=== PATIENT | female | born 1945 | race Caucasian/White ===

== ENCOUNTER 2020-10-15 14:47 | Inpatient (IN) ==
--- NOTE | 2020-10-15 15:45 | DR.GENAD ---
HPI Time Seen Time Seen by Provider: 10/15/20 15:03 PCP Primary Care Physician: HUMBLE HPI Comment HPI Comment: A 74 y/o female presenting with drainage from a surgical incision site. She has bladder cancer and had a cystectomy back in July 2020. The daughter in-law who cares for her at home noted this this morning and it was draining some yellowish discharge. The wound was not present yesterday. The pt. is taking oral chemotherapy at home. She has no fever, nausea or vomiting. Complaint/Symptoms Chief Complaint:: "THIS PLACE WHERE I HAD SURGERY AND HAD MY BLADDER TAKEN OUT HAS BECOME INFECTED AND I HAVE GREEN STUFF COMING OUT OF THIS BAG." Self Treatment fo Chief Complaint: NONE COVID-19 Coronavirus risk:travel/contact w/high risk person: No Has patient experienced Coronavirus symptoms: No Nurses notes reviewed Nurses Notes Review: Yes Source History Provided: Patient and Family Member Mode of Arrival Mode of Arrival: EMS Timing Onset of Chief Complaint: 10/15/20 Came on: Suddenly PMH PMH Past Medical History: Yes Past Medical History: Arthritis and Hypertension Past Medical History Comment: BLADDER CANCER, KIDNEY CANCER Past Surgical History: Yes Surgical History: Cholecystectomy Past Surgical History Comment: BLADDER, AND KIDNEY REMOVED, HERNIA REPAIR X 3 WI TH MESH Family History History of Family Medical Conditions: Yes Family Medical History: Cancer, Heart Failure and Hypertension Social History Does patient currently use any type of tobacco product: No Have you used tobacco products in the last 12 months: No Type of Tobacco Use: None Does any household member use tobacco: No Alcohol Use: None Do you use any recreational Drugs:: No Lives With: Family Lives Where: Home Travel Risk Coronavirus risk:travel/contact w/high risk person: No Has patient experienced Coronavirus symptoms: No Infectious screening In the last 2 months have you had wt loss of >10#?: NO Have you had fever, night sweats or hemotysis?: No Have you traveled outside the country in the last 6 months?: No Isolation: Standard ROS Review of Systems Constitutional: No Symptoms Reported ENTM: No Symptoms Reported Respiratoy: No Symptoms Reported Cardiovascular: No Symptoms Reported Gastrointestinal/Abdominal: No Symptoms Reported Genitourinary: No Symptoms Reported Neurological: No Symptoms Reported Musculoskeletal: No Symptoms Reported Integumentary: Wound (incision dehiscence ) Hematologic/Lymphatic: No Symptoms Reported Endocrine: No Symptoms Reported Psychiatric: No Symptoms Reported PE Vital Signs Vitals: Temperature 97.7 F Pulse Rate [Apical] 104 Pulse Rate 97 Respiratory Rate 30 Blood Pressure [Left Arm] 140/60 Blood Pressure 91/52 O2 Sat by Pulse Oximetry 100 General Limitations: No Limitations General Appearance: Alert and In No Apparent Distress Head Head Exam: Normal Inspection, Atraumatic and Normocephalic Eyes Eye exam: Normal Appearance and EOMI ENT ENT Exam: Normal Exam, Normal Oropharynx, Normal External Ear Exam and Mucous Membranes Moist Neck Neck Exam: Normal Inspection, Full ROM and Trachea Midline Chest Chest Inspection: Normal Inspection and Symmetric Chest Wall Rise Respiratory Respiratory Exam: Normal Lung Sounds Bilat Cardiovascular Cardiovascular Exam: Regular Rate, Normal Rhythm, Normal Heart Sounds, +S1 and +S2 Abdominal Exam Abdominal Exam: Normal Bowel Sounds, Soft and Other (incisional dehiscence at about disal 1/3, with wound drainage.); negative Normal Inspection, Distention, Tenderness, Guarding, Rebound, Rigidity, Dimnished Bowel Sounds, Hyperactive Sonido wel Sounds, Hypoactive Bowel Sounds, Organomegaly, Trauma, Incision, Ascites, Mass, Bruit, Pulsatile Mass and Hernia Extremities Extremities Exam: Normal Inspection and Full ROM Back Back Exam: Normal Inspection and Full ROM Neurologic Neurological Exam: Alert and Oriented X3 Psychiatric Psychiatric Exam: Normal Affect and Normal Mood Skin Skin Exam: Dry and Normal Color COURSE Reevaluation 1st: Unchanged Education/Counseling Education/Counseling: Patient, Family, Education and Counseling Educated On: Treatment, Diagnosis, Prognosis and Needs for Follow Up ROR Labs Reviewed Laboratory Results Reviewed?: Yes Result Diagrams: 10/15/20 15:46 10/15/20 15:46 Laboratory: 10/15/20 15:30 Abdomen Wound Gram Stain - Final WBC 26.6 X10^3/uL (3.6-10.0) H 10/15/20 15:46 RBC 3.15 X10^6/uL (3.5-5.4) L 10/15/20 15:46 Hgb 7.3 g/dL (12.0-16.0) L 10/15/20 15:46 Hct 23.6 % (36.0-47.0) L 10/15/20 15:46 MCV 75.0 fL (80.0-100.0) L 10/15/20 15:46 MCH 23.1 pg (27.0-34.0) L 10/15/20 15:46 MCHC 30.9 g/dL (33.0-35.0) L 10/15/20 15:46 RDW 18.2 % (11.6-16.5) H 10/15/20 15:46 Plt Count 269 X10^3/uL (150.0-450.0) 10/15/20 15:46 Plt Count Comment Adequate (ADEQUATE) 10/15/20 15:46 MPV 7.2 fL (7.4-11.0) L 10/15/20 15:46 Neut % (Auto) 89.2 % (42.0-75.0) H 10/15/20 15:46 Lymph % (Auto) 3.8 % (21.0-51.0) L 10/15/20 15:46 [place] % (Auto) 6.2 % (0.0-13.0) 10/15/20 15:46 Eos % (Auto) 0.5 % (0.9-2.9) L 10/15/20 15:46 Baso % (Auto) 0.3 % (0.2-1.0) 10/15/20 15:46 Neut # (Auto) 23.7 x10^3/uL (2.2-4.8) H 10/15/20 15:46 Lymph # (Auto) 1.0 X10^3/uL (1.3-2.9) L 10/15/20 15:46 [place]ough # (Auto) 1.7 x10^3/uL (0.3-0.8) H 10/15/20 15:46 Eos # (Auto) 0.1 x10^3/uL (0.0-0.2) 10/15/20 15:46 Baso # (Auto) 0.1 X10^3/uL (0.0-0.1) 10/15/20 15:46 Absolute Nucleated RBC 0.0 /100WBC 10/15/20 15:46 Total Counted 100 10/15/20 15:46 Neutrophils % (Manual) 92 % (39-76) H 10/15/20 15:46 Lymphocytes % (Manual) 6 % (13-43) L 10/15/20 15:46 Monocytes % (Manual) 1 % (4-9) L 10/15/20 15:46 Eosinophils % (Manual) 1 % (0-6) 10/15/20 15:46 Plt Morphology Comment Normal (NORMAL) 10/15/20 15:46 RBC Morphology Normal (NORMAL) 10/15/20 15:46 Sodium 139 mmol/L (136-145) 10/15/20 15:46 Corrected Sodium 140 mmol/L (136-145) 10/15/20 15:46 Potassium 3.3 mmol/L (3.5-5.1) L 10/15/20 15:46 Chloride 104 mmol/L (98-107) 10/15/20 15:46 Carbon Dioxide 21.5 mmol/L (21-32) 10/15/20 15:46 BUN 32 mg/dL (7-18) H 10/15/20 15:46 Creatinine 2.02 mg/dL (0.55-1.02) H 10/15/20 15:46 Est GFR (MDRD) Af Amer 31 (>60) L 10/15/20 15:46 Est GFR (MDRD) Non-Af 25 (>60) L 10/15/20 15:46 Glucose 147 mg/dL (65-99) H 10/15/20 15:46 Lactic Acid 5.1 mmol/L (0.4-2.0) H 10/15/20 16:50 Calcium 9.4 mg/dL (8.5-10.1) 10/15/20 15:46 Corrected Calcium 11.7 mg/dL (8.5-10.1) H 10/15/20 15:46 Total Bilirubin 0.20 mg/dL (0.2-1.0) 10/15/20 15:46 AST 28 Units/L (15-37) 10/15/20 15:46 ALT 13 Units/L (12-78) 10/15/20 15:46 Alkaline Phosphatase 72 Units/L (46-116) 10/15/20 15:46 Total Protein 5.6 g/dL (6.4-8.2) L 10/15/20 15:46 Albumin 1.1 g/dL (3.4-5.0) L 10/15/20 15:46 Globulin 4.5 g/dL (2.5-4.5) 10/15/20 15:46 Albumin/Globulin Ratio 0.2 Ratio (1.1-2.1) L 10/15/20 15:46 SARS CoV-2 RNA Rapid ROSE Negative (NEGATIVE) 10/15/20 16:20 Opioid Opioid Risk Tool Age (Zeeshan box if 16-45): No History of Preadolescent Sexual Abuse: No Total: 0 Total Score Risk Category: Low Risk Copyright: [facility] predicting aberrant behaviors Diagnosis Discharge Problem: Abdominal wall fistula, Neutrophilic leukocytosis, CKD (chronic kidney disease) stage 4, GFR 15-29 ml/min, Hypochromic microcytic anemia, Acute hypokalemia Abdominal wound dehiscence Qualifiers: Encounter type: initial encounter Qualified Code(s): T81.30XA - Disruption of wound, unspecified, initial encounter Bladder cancer Qualifiers: Bladder location: unspecified site Qualified Code(s): C67.9 - Malignant neoplasm of bladder, unspecified Instructions Forms: Precautions for COVID19 Patient Portal Social Distancing
[2020-10-15 15:58] LABS: BASOPHILS # (AUTO) 0.1 X10^3/uL (0.0-0.1); BASOPHILS % (AUTO) 0.3 % (0.2-1.0); EOSINOPHILS # (AUTO) 0.1 x10^3/uL (0.0-0.2); EOSINOPHILS % (AUTO) 0.5 % (0.9-2.9); HEMATOCRIT 23.6 % (36.0-47.0); HEMOGLOBIN 7.3 g/dL (12.0-16.0); LYMPHOCYTES % (AUTO) 3.8 % (21.0-51.0); MEAN CORPUSCULAR HEMOGLOBIN 23.1 pg (27.0-34.0); MEAN CORPUSCULAR HGB CONC 30.9 g/dL (33.0-35.0); MEAN PLATELET VOLUME 7.2 fL (7.4-11.0); MONOCYTES # (AUTO) 1.7 x10^3/uL (0.3-0.8); MONOCYTES % (AUTO) 6.2 % (0.0-13.0); NEUTROPHILS # (AUTO) 23.7 x10^3/uL (2.2-4.8); NEUTROPHILS % (AUTO) 89.2 % (42.0-75.0); PLATELET COUNT 269 X10^3/uL (150.0-450.0); RED BLOOD COUNT 3.15 X10^6/uL (3.5-5.4); RED CELL DISTRIBUTION WIDTH 18.2 % (11.6-16.5); WHITE BLOOD COUNT 26.6 X10^3/uL (3.6-10.0)
[2020-10-15 16:10] LABS: ALBUMIN 1.1 g/dL (3.4-5.0); CALCIUM 9.4 mg/dL (8.5-10.1); CARBON DIOXIDE 21.5 mmol/L (21-32); COR CA(FOR HYPOALB) 11.7 mg/dL (8.5-10.1); CREATININE 2.02 mg/dL (0.55-1.02); TOTAL PROTEIN 5.6 g/dL (6.4-8.2)
[2020-10-15 16:11] LABS: PLATELET MORPHOLOGY COMMENT NORMAL (NORMAL)
[2020-10-15] MEDS ORDERED: LEVAQUIN PREMIX IV 500 MG 500 MG/100 ML BAG IV ONE ×2 (16:31→16:58)
[2020-10-15] MEDS ORDERED: K-DUR TAB 20 MEQ PO ONE ×2 (16:39→16:57)
[2020-10-15] MEDS ORDERED: NS 1000 ML 1,000 ML ONE (16:58)
[2020-10-15] MEDS ORDERED: NS 1000 ML 1,000 ML IV SCH (17:00)
[2020-10-15] MEDS ORDERED: NS 1000 ML 1,000 ML IV ONE (18:24)
[2020-10-15] MEDS: NS 1000 ML 1,000 ML IV SCH (19:36)
[2020-10-15] MEDS ORDERED: NS 500 ML IV 500 ML IV ONE (21:22)
[2020-10-15 22:15] VITALS: BMI 26.4
[2020-10-16 05:17] LABS: BASOPHILS # (AUTO) 0.1 X10^3/uL (0.0-0.1); BASOPHILS % (AUTO) 0.4 % (0.2-1.0); EOSINOPHILS # (AUTO) 0.3 x10^3/uL (0.0-0.2); EOSINOPHILS % (AUTO) 1.1 % (0.9-2.9); HEMATOCRIT 28.5 % (36.0-47.0); HEMOGLOBIN 9.4 g/dL (12.0-16.0); LYMPHOCYTES # (AUTO) 1.3 X10^3/uL (1.3-2.9); LYMPHOCYTES % (AUTO) 5.4 % (21.0-51.0); MEAN CORPUSCULAR HEMOGLOBIN 25.9 pg (27.0-34.0); MEAN CORPUSCULAR HGB CONC 33.1 g/dL (33.0-35.0); MEAN CORPUSCULAR VOLUME 78.3 fL (80.0-100.0); MEAN PLATELET VOLUME 7.4 fL (7.4-11.0); MONOCYTES # (AUTO) 1.2 x10^3/uL (0.3-0.8); MONOCYTES % (AUTO) 5.2 % (0.0-13.0); NEUTROPHILS # (AUTO) 20.8 x10^3/uL (2.2-4.8); NEUTROPHILS % (AUTO) 87.9 % (42.0-75.0); PLATELET COUNT 229 X10^3/uL (150.0-450.0); RED BLOOD COUNT 3.63 X10^6/uL (3.5-5.4); RED CELL DISTRIBUTION WIDTH 18.3 % (11.6-16.5)
[2020-10-16 05:22] LABS: ALBUMIN 1.1 g/dL (3.4-5.0); CARBON DIOXIDE 21.7 mmol/L (21-32); COR CA(FOR HYPOALB) 11.3 mg/dL (8.5-10.1); CREATININE 1.87 mg/dL (0.55-1.02); TOTAL PROTEIN 5.3 g/dL (6.4-8.2)
[2020-10-16 06:01] LABS: WHITE BLOOD COUNT 23.7 X10^3/uL (3.6-10.0)
[2020-10-16 06:02] LABS: HYPOCHROMASIA SLIGHT; MICROCYTOSIS SLIGHT; PLATELET MORPHOLOGY COMMENT NORMAL (NORMAL)
[2020-10-16] MEDS ORDERED: LEVAQUIN PREMIX IV 750 MG 750 MG/150 ML BAG IV SCH (08:00)
--- NOTE | 2020-10-16 08:31 | DR.PROGNOT ---
Hospital Progress Notes - Progress Note for Day of: Progress Note Date: 10/16/20 - Chief Complaint Chief Complaint: was seen in the ER with open wound lower midline incision with active drainage . no significant cellulitis . S/P resection of bladder ca ( to obtain old records ) - Past Medical Family Social History Past Med/Fam/Surg Hx: No changes since H&P Allergies: Allergies cephalexin [From Keflex] Allergy (Verified 09/19/18 14:30) Penicillins Allergy (Verified 09/19/18 14:30) - Review Of Systems ROS: No change since H&P - Vital Signs Vital Signs: Temperature 97.9 F Pulse Rate [Apical] 98 Pulse Rate 101 Respiratory Rate 20 Blood Pressure [Right Arm] 98/55 Blood Pressure [Left Arm] 80/40 Blood Pressure 87/50 O2 Sat by Pulse Oximetry 100 - Physical Exam Oriented: Normal Eyes: Normal Ear: Normal Nose: Normal Throat: Normal Cardiovascular: Normal : Normal GI:Auscultation: Normal GI:Palpation: Other (large indurated area mid lower abdomen with fistula tract on the midline draining greenish fluid .) Speech Pattern: Clear, Appropriate - Laboratory and Diagnostics Result Diagrams: 10/16/20 04:17 10/16/20 04:17 Labs: 10/15/20 15:30 Abdomen Wound Gram Stain - Final Laboratory WBC 23.7 X10^3/uL (3.6-10.0) H 10/16/20 04:17 RBC 3.63 X10^6/uL (3.5-5.4) 10/16/20 04:17 Hgb 9.4 g/dL (12.0-16.0) L D 10/16/20 04:17 Hct 28.5 % (36.0-47.0) L 10/16/20 04:17 MCV 78.3 fL (80.0-100.0) L 10/16/20 04:17 MCH 25.9 pg (27.0-34.0) L 10/16/20 04:17 MCHC 33.1 g/dL (33.0-35.0) 10/16/20 04:17 RDW 18.3 % (11.6-16.5) H 10/16/20 04:17 Plt Count 229 X10^3/uL (150.0-450.0) 10/16/20 04:17 Plt Count Comment Adequate (ADEQUATE) 10/16/20 04:17 MPV 7.4 fL (7.4-11.0) 10/16/20 04:17 Neut % (Auto) 87.9 % (42.0-75.0) H 10/16/20 04:17 Lymph % (Auto) 5.4 % (21.0-51.0) L 10/16/20 04:17 [place] % (Auto) 5.2 % (0.0-13.0) 10/16/20 04:17 Eos % (Auto) 1.1 % (0.9-2.9) 10/16/20 04:17 Baso % (Auto) 0.4 % (0.2-1.0) 10/16/20 04:17 Neut # (Auto) 20.8 x10^3/uL (2.2-4.8) H 10/16/20 04:17 Lymph # (Auto) 1.3 X10^3/uL (1.3-2.9) 10/16/20 04:17 [place] # (Auto) 1.2 x10^3/uL (0.3-0.8) H 10/16/20 04:17 Eos # (Auto) 0.3 x10^3/uL (0.0-0.2) H 10/16/20 04:17 Baso # (Auto) 0.1 X10^3/uL (0.0-0.1) 10/16/20 04:17 Absolute Nucleated RBC 0.1 /100WBC 10/16/20 04:17 Total Counted 100 10/16/20 04:17 Neutrophils % (Manual) 90 % (39-76) H 10/16/20 04:17 Lymphocytes % (Manual) 5 % (13-43) L 10/16/20 04:17 Monocytes % (Manual) 5 % (4-9) 10/16/20 04:17 Eosinophils % (Manual) 1 % (0-6) 10/15/20 15:46 Plt Morphology Comment Normal (NORMAL) 10/16/20 04:17 RBC Morphology Abnormal (NORMAL) A 10/16/20 04:17 Hypochromasia Slight A 10/16/20 04:17 Microcytosis Slight A 10/16/20 04:17 Sodium 140 mmol/L (136-145) 10/16/20 04:17 Corrected Sodium 141 mmol/L (136-145) 10/16/20 04:17 Potassium 2.9 mmol/L (3.5-5.1) L* 10/16/20 04:17 Chloride 107 mmol/L (98-107) 10/16/20 04:17 Carbon Dioxide 21.7 mmol/L (21-32) 10/16/20 04:17 BUN 29 mg/dL (7-18) H 10/16/20 04:17 Creatinine 1.87 mg/dL (0.55-1.02) H 10/16/20 04:17 Est GFR (MDRD) Af Amer 34 (>60) L 10/16/20 04:17 Est GFR (MDRD) Non-Af 28 (>60) L 10/16/20 04:17 Glucose 122 mg/dL (65-99) H 10/16/20 04:17 Lactic Acid 5.1 mmol/L (0.4-2.0) H 10/15/20 16:50 Calcium 9.0 mg/dL (8.5-10.1) 10/16/20 04:17 Corrected Calcium 11.3 mg/dL (8.5-10.1) H 10/16/20 04:17 Total Bilirubin 0.90 mg/dL (0.2-1.0) 10/16/20 04:17 AST 24 Units/L (15-37) 10/16/20 04:17 ALT 11 Units/L (12-78) L 10/16/20 04:17 Alkaline Phosphatase 73 Units/L (46-116) 10/16/20 04:17 Total Protein 5.3 g/dL (6.4-8.2) L 10/16/20 04:17 Albumin 1.1 g/dL (3.4-5.0) L 10/16/20 04:17 Globulin 4.2 g/dL (2.5-4.5) 10/16/20 04:17 Albumin/Globulin Ratio 0.3 Ratio (1.1-2.1) L 10/16/20 04:17 SARS CoV-2 RNA Rapid ROSE Negative (NEGATIVE) 10/15/20 16:20 Blood Type B POSITIVE 10/15/20 16:50 Antibody Screen Negative 10/15/20 16:50 Crossmatch See Detail 10/15/20 16:50 - Assessment and Plan 1: open wound abdominal wall R/O bowel fistula . recent surgery for bladder cancer ( to obtain old records ). hypokalemia and hypo albuminemia . to obtain ABD/PELVIC CT with contrast in the fistula tract .. on IV ATB . - Problem Patient Problems: Patient Problems Abdominal wound dehiscence (Acute) T81.30XA Abdominal wall fistula (Acute) K63.2 Neutrophilic leukocytosis (Acute) D72.9 CKD (chronic kidney disease) stage 4, GFR 15-29 ml/min (Acute) N18.4 Bladder cancer (Acute) C67.9 Hypochromic microcytic anemia (Acute) D50.9 Acute hypokalemia (Acute) E87.6
[2020-10-16] MEDS: NS 1000 ML 1,000 ML IV SCH ×2 (08:34→21:06)
[2020-10-16] MEDS ORDERED: NS 1000 ML 1,000 ML IV ONE (09:38)
[2020-10-16] MEDS ORDERED: PROCALAMINE 3 % 1,000 ML IV SCH (10:00)
--- NOTE | 2020-10-16 10:55 | DR.H&P ---
H&P - History & Physical for Day of: H&P Date: 10/15/20 - Chief Complaint Chief Complaint: DRAINAGE FROM ABDOMINAL WOUND, WEAKNESS, HYPOTENSION - History of Present Illness History of Present Illness: IS A 74 YEAR OLD PATIENT OF OURS. SHE PRESENTED TO THE ER WITH COMPLAINTS OF PURULENT, FOUL SMELLING DRAINAGE FROM AN OPEN WOUND TO THE LEFT SIDE OF ABDOMEN. PATIENT WAS DIAGNOSED WITH BLADDER CANCER EARLIER THIS YEAR. SHE HAD A CYSTECTOMY IN JULY 2020 IN [place]. NEOBLADDER RECONSTRUCTION WAS ALSO DONE AT THAT TIME. AFTER SURGERY, PATIENT REPORTS THAT A FISTULA FORMED. SHE HAS HAD DRAINAGE FROM THE SITE FOR SEVERAL WEEKS. PATIENT AND FAMILY MEMBER REPORT THAT THERE WAS ONLY A SMALL OPENED AREA A FEW DAYS AGO, BUT WOUND BUSTED OPEN YESTERDAY MORNING AND HAS HAD MODERATE DRAINAGE SINCE. PATIENT REPORTS THAT SINCE RECONSTRUCTION, SHE HAS NOT BEEN ABLE TO URINATE ON HER OWN YET. SHE REPORTS THAT A LOCKE CATHETER WAS INSERTED ABOUT A MONTH AGO AND HOME HEALTH HAS BEEN CHANGING IT OUT FOR HER. PATIENT WAS SCHEDULED TO START RADIATION LAST TUESDAY, HOWEVER, PATIENT WAS TOO WEAK AND SICK. FAMILY MEMBERS TOOK HER TO THE HOSPITAL IN [place], [place] AT THAT TIME. SHE WAS THEN TRANSFERRED TO [facility] IN [place], [place]. THERE, SHE HAD STENT PLACEMENT IN LEFT KIDNEY. A NEPHROSTOMY TUBE WAS ALSO INSERTED. WHILE HOSPITALIZED THERE, AN ABDOMEN/PELVIS CT WAS DONE AND REVEALED A MASS IN BETWEEN THE KIDNEY AND AREA OF BLADDER RECONSTRUCTION. PATIENT DENIES FEVER, NAUSEA, OR VOMITING. SHE DOES ADMIT TO WEAKNESS AND LOW BLOOD PRESSURE. OTHER PAST MEDICAL HISTORY INCLUDES HTN, RENAL DISEASE, DEPRESSION, ILEAL CONDUIT, UROSTOMY, RIGHT NEPHRECTOMY, AND HERNIA REPAIR X 3 WITH MESH. HER ONCOLOGIST IS IN [place]. ON ARRIVAL TO THE ER, VITALS WERE 97.9-104-20-95%-140/60. LABS WERE OBTAINED. ABNORMAL LAB VALUES INCLUDE THE FOLLOWING: WBC 26.6, RBC 3.15, HGB 7.3, HCT 23.6, POTASSIUM 3.3, BUN 32, CREATININE 2.02, GLUCOSE 147, TOTAL PROTEIN 5.6, ALBUMIN 1.1, LACTIC ACID 5.1. COVID-19 NEGATIVE. BLOOD CULTURES AND WOUND CULTURES WERE SET UP. IN THE ER, AN OSTOMY BAG WAS PLACED OVER WOUND TO COLLECT THE PURULENT DRAINAGE. WAS CONSULTED. HE WISHES TO OBTAIN AN ABD/PELVIS CT WITH CONTRAST IN THE FISTULA TRACT. WHILE IN THE ER, PATIENT RECEIVED A NORMAL SALINE BOLUS, LEVAQUIN 500MG IV X 1 DOSE, K-DUR 20MEQ PO X 1. SHE WAS ADMITTED TO THE HOSPITAL FOR FURTHER EVALUATION AND TREATMENT OF SEPSIS, ABDOMINAL WOUND DEHISCENCE, ABDOMINAL WALL FISTULA, LEUKOCYTOSIS, HYPOKALEMIA, AND ANEMIA. WE ORDERED AND TRANSFUSED TWO UNITS OF PRBC. SHE WAS STARTED ON NORMAL SALINE AT 110 ML/HR, PROCALAMINE AT 40 ML/HR, ALBUMIN 25% IV BID, CIPRO 200MG IV Q12H, FORTAZ 1G IV Q12H, KLONOPIN 1MG PO HS, NORCO 5/325MG PO Q6H PRN. WE WILL BOLUS AN ADDITION LITER OF NORMAL SALINE. OTHERWISE, WE PLAN TO FOLLOW UP WITH AM LABS AND CONTINUE TO MONITOR. TIME SPENT ON CLINICAL ASSESSMENT, REVIEWING LABS AND IMAGING, DECISION MAKING, AND DOCUMENTATION GREATER THAN 75 MINUTES. - Past Medical History Past Medical History: Arthritis, Depression, Hypertension, Renal Disease - Past Surgical History Surgical History: Cholecystectomy Additional Surgical History: ILEAL CONDUIT, UROSTOMY, RIGHT NEPHRECTOMY, HERNIA REPAIR X 3 WITH MESH, CYSTECTOMY - Family History Family Medical History: Cancer, Heart Failure, Hypertension - Social History Does patient currently use any type of tobacco product: No Have you used tobacco products in the last 12 months: No Type of Tobacco Use: None Does any household member use tobacco: No Alcohol Use: None Drug Use: None - Medications Home Medications: cephalexin [From Keflex] Allergy (Verified 09/19/18 14:30) Penicillins Allergy (Verified 09/19/18 14:30) - Review of Systems Constitutional: Weakness Eyes: No Symptoms Reported ENT: No Symptoms Reported Respiratory: No Symptoms Reported Cardiovascular: No Symptoms Reported Gastrointestinal: See HPI, Abdominal Pain Genitourinary: See HPI, Other (NEOBLADDER RECONSTRUCTION. LOCKE IN PLACE. NEPHROSTOMY TUBE LEFT KIDNEY ) Musculoskeletal: No Symptoms Reported Skin: See HPI, Wound (LEFT ABDOMEN WOUND DRAINAGE ) Neurological: Weakness - Physical Exam Vital Signs: Temperature 97.9 F Pulse Rate [Apical] 98 Pulse Rate 101 Respiratory Rate 20 Blood Pressure [Right Arm] 98/55 Blood Pressure [Left Arm] 80/40 Blood Pressure 87/50 O2 Sat by Pulse Oximetry 100 Oriented: Normal Eyes: Normal Ear: Normal Nose: Normal Throat: Normal Respiratory: Diminished Throughout Cardiovascular: Normal : Other (NEOBLADDER RECONSTRUCTION. LOCKE IN PLACE. NEPHROSTOMY TUBE LEFT KIDNEY ) Auscultation: Bowel Sounds: Normal Palpation: Normal Tenderness: Normal Skin: Wound (LEFT ABDOMEN WOUND DEHISCENCE WITH PURULENT DRAINAGE ) Musculoskeletal: Normal Psychiatric: Normal Mood Description: Calm Affect: Normal Speech Pattern: Clear - Assessment/Plan (1) Sepsis Qualifiers: Sepsis type: sepsis due to unspecified organism Sepsis acute organ dysfunction status: unspecified Qualified Code(s): A41.9 - Sepsis, unspecified organism Status: Acute Plan: ADMIT, NORMAL SALINE AT 110 ML/HR, PROCALAMINE AT 40 ML/HR, ALBUMIN 25% IV BID, CIPRO 200MG IV Q12H, FORTAZ 1G IV Q12H, KLONOPIN 1MG PO HS, NORCO 5/325MG PO Q6H PRN. WOUND AND BLOOD CULTURE SET UP (2) Abdominal wound dehiscence Qualifiers: Encounter type: initial encounter Qualified Code(s): T81.30XA - Disruption of wound, unspecified, initial encounter Status: Acute (3) Abdominal wall fistula Status: Acute (4) Neutrophilic leukocytosis Status: Acute (5) Bladder cancer Qualifiers: Bladder location: unspecified site Qualified Code(s): C67.9 - Malignant neoplasm of bladder, unspecified Status: Acute (6) Hypochromic microcytic anemia Status: Acute (7) Acute hypokalemia Status: Acute (8) CKD (chronic kidney disease) stage 4, GFR 15-29 ml/min Status: Chronic - Allergies Allergies/Adverse Reactions: Allergies Allergy/AdvReac Type Severity Reaction Status Date / Time cephalexin [From Keflex] Allergy Verified 09/19/18 14:30 Penicillins Allergy Verified 09/19/18 14:30
[2020-10-16] MEDS: NORCO 5/325 MG TAB PO PRN (11:30)
[2020-10-16] MEDS: ALBUMIN HUMAN 25%- 100 ML 100 ML IV SCH ×2 (11:54→21:05)
--- NOTE | 2020-10-16 13:23 | CT ---
HISTORYPT C/O OF PURULENT, FOUL SMELLING DRAINAGE FROM AN OPEN WOUND TO THE LEFT SIDE OF ABDOMEN. PATIENT DIAGNOSED WITH BLADDER CANCER. PT HAD A CYSTECTOMY IN JULY 30 W/ NEOBLADDER RECONSTRUCTION. AFTER SURGERY, PATIENT REPORTS a fistulaSTUDYCT ABDOMEN/PELVIS without IV contrastCOMPARISONCT 10/07/2020TECHNIQUEMultiple axial images of the abdomen and pelvis were obtained from the lung bases to the pubic symphysis without the administration of IV contrast. Initial imaging is performed following installation of contrast into the surgical wound by the referring physician. Dose reduction techniques including Automated Exposure Control (AEC) and adjustment of mA and kV were utilized.FINDINGSMinimal bibasilar atelectasis. Calcified granuloma is seen in the dome of the liver. Spleen appears normal. 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 Gallbladder appears to have thickened wall with mild adjacent fluid. Findings suggest acute cholecystitis. No biliary ductal dilation. Pancreas appears atrophic. Adrenal glands and abdominal aorta are normal in size.Absent right kidney. Left-sided percutaneous nephrostomy 2 is new since prior study. Left-sided hydronephrosis is decreased but left-sided hydroureter and mild left-sided hydronephrosis persist. Merritt catheter is seen within neobladder which is not distended.Left paramidline skin wound is seen with confluent area of mildly hyperdense mass extending from the subcutaneous soft tissues in the region of the wound into the mid pelvis. This area measures 17.0 x 7.3 cm versus 13.2 x 6.9 cm previously. This mass likely causes the left ureteral obstruction. Multiple enlarged lymph nodes are suspected in the groin regions and are probably malignant lymphadenopathy. Mass likely extends into the right inguinal region inferiorly near the mons pubis.Postoperative changes are seen in the bowel and no evidence of bowel obstruction is seen. Trace free pelvic fluid is seen. Following installation of contrast into the skin wound, contrast is seen in the subcutaneous soft tissues. This appears to fill a small collection in the subcutaneous soft tissues to the left of midline. This collection measures 5.3 x 1.8 cm and could be an abscess in the subcutaneous soft tissues. No evidence of intraperitoneal extension of contrast is seen. No evidence of fistulous connection with bowel or system is seen.IMPRESSIONWorsening size of mass in the pelvis which extends into the subcutaneous soft tissues. Adjacent lymphadenopathy is seen in the pelvis and groin, similar to prior study.There is a 5.3 x 1.8 cm subcutaneous fluid collection to the left of midline, extending inferior to the skin wound. This could be an abscess. It fills with injected contrast from the skin wound. No intraperitoneal fistula is seen.Improved left-sided hydronephrosis status post percutaneous nephrostomy tube.Possible development of acute cholecystitis.Electronically signed by: Nick Johnson (Oct 16, 2020 13:20:41)
[2020-10-16] MEDS: FORTAZ or TAZICEF VIAL INJ 1 G in NS 100 ML IV + SPIKE MINIBAG* 100 ML IV SCH ×2 (14:01→21:06)
--- NOTE | 2020-10-16 16:40 | DR.PROGNOT ---
Hospital Progress Notes - Progress Note for Day of: Progress Note Date: 10/16/20 - Chief Complaint Chief Complaint: the wound was filled with radioactive material and repeated CT was done .. no communication with the bowel or free spillage into the abdomen .. most likely large abscess in the abdominal wall . - Past Medical Family Social History Past Med/Fam/Surg Hx: No changes since H&P Allergies: Allergies cephalexin [From Keflex] Allergy (Verified 09/19/18 14:30) Penicillins Allergy (Verified 09/19/18 14:30) - Review Of Systems ROS: No change since H&P - Vital Signs Vital Signs: Temperature 97.8 F Pulse Rate [Apical] 94 Pulse Rate 101 Respiratory Rate 18 Blood Pressure [Right Arm] 105/53 Blood Pressure [Left Arm] 80/40 Blood Pressure 87/50 O2 Sat by Pulse Oximetry 97 - Physical Exam Oriented: Normal Eyes: Normal Ear: Normal Nose: Normal Throat: Normal Cardiovascular: Normal : Other (NEOBLADDER RECONSTRUCTION. LOCKE IN PLACE. NEPHROSTOMY TUBE LEFT KIDNEY ) GI:Auscultation: Normal GI:Palpation: Normal GI: Tenderness: Normal Skin: Wound (LEFT ABDOMEN WOUND DEHISCENCE WITH PURULENT DRAINAGE ) Musculoskeletal: Normal Psychiatric: Normal Mood Description: Calm Affect: Normal Speech Pattern: Clear - Laboratory and Diagnostics Result Diagrams: 10/16/20 04:17 10/16/20 04:17 Labs: 10/15/20 15:30 Abdomen Wound Gram Stain - Final 10/15/20 15:30 Abdomen Wound Culture - Preliminary Laboratory WBC 23.7 X10^3/uL (3.6-10.0) H 10/16/20 04:17 RBC 3.63 X10^6/uL (3.5-5.4) 10/16/20 04:17 Hgb 9.4 g/dL (12.0-16.0) L D 10/16/20 04:17 Hct 28.5 % (36.0-47.0) L 10/16/20 04:17 MCV 78.3 fL (80.0-100.0) L 10/16/20 04:17 MCH 25.9 pg (27.0-34.0) L 10/16/20 04:17 MCHC 33.1 g/dL (33.0-35.0) 10/16/20 04:17 RDW 18.3 % (11.6-16.5) H 10/16/20 04:17 Plt Count 229 X10^3/uL (150.0-450.0) 10/16/20 04:17 Plt Count Comment Adequate (ADEQUATE) 10/16/20 04:17 MPV 7.4 fL (7.4-11.0) 10/16/20 04:17 Neut % (Auto) 87.9 % (42.0-75.0) H 10/16/20 04:17 Lymph % (Auto) 5.4 % (21.0-51.0) L 10/16/20 04:17 [place] % (Auto) 5.2 % (0.0-13.0) 10/16/20 04:17 Eos % (Auto) 1.1 % (0.9-2.9) 10/16/20 04:17 Baso % (Auto) 0.4 % (0.2-1.0) 10/16/20 04:17 Neut # (Auto) 20.8 x10^3/uL (2.2-4.8) H 10/16/20 04:17 Lymph # (Auto) 1.3 X10^3/uL (1.3-2.9) 10/16/20 04:17 [place] # (Auto) 1.2 x10^3/uL (0.3-0.8) H 10/16/20 04:17 Eos # (Auto) 0.3 x10^3/uL (0.0-0.2) H 10/16/20 04:17 Baso # (Auto) 0.1 X10^3/uL (0.0-0.1) 10/16/20 04:17 Absolute Nucleated RBC 0.1 /100WBC 10/16/20 04:17 Total Counted 100 10/16/20 04:17 Neutrophils % (Manual) 90 % (39-76) H 10/16/20 04:17 Lymphocytes % (Manual) 5 % (13-43) L 10/16/20 04:17 Monocytes % (Manual) 5 % (4-9) 10/16/20 04:17 Eosinophils % (Manual) 1 % (0-6) 10/15/20 15:46 Plt Morphology Comment Normal (NORMAL) 10/16/20 04:17 RBC Morphology Abnormal (NORMAL) A 10/16/20 04:17 Hypochromasia Slight A 10/16/20 04:17 Microcytosis Slight A 10/16/20 04:17 Sodium 140 mmol/L (136-145) 10/16/20 04:17 Corrected Sodium 141 mmol/L (136-145) 10/16/20 04:17 Potassium 2.9 mmol/L (3.5-5.1) L* 10/16/20 04:17 Chloride 107 mmol/L (98-107) 10/16/20 04:17 Carbon Dioxide 21.7 mmol/L (21-32) 10/16/20 04:17 BUN 29 mg/dL (7-18) H 10/16/20 04:17 Creatinine 1.87 mg/dL (0.55-1.02) H 10/16/20 04:17 Est GFR (MDRD) Af Amer 34 (>60) L 10/16/20 04:17 Est GFR (MDRD) Non-Af 28 (>60) L 10/16/20 04:17 Glucose 122 mg/dL (65-99) H 10/16/20 04:17 Lactic Acid 3.9 mmol/L (0.4-2.0) H 10/16/20 10:00 Calcium 9.0 mg/dL (8.5-10.1) 10/16/20 04:17 Corrected Calcium 11.3 mg/dL (8.5-10.1) H 10/16/20 04:17 Total Bilirubin 0.90 mg/dL (0.2-1.0) 10/16/20 04:17 AST 24 Units/L (15-37) 10/16/20 04:17 ALT 11 Units/L (12-78) L 10/16/20 04:17 Alkaline Phosphatase 73 Units/L (46-116) 10/16/20 04:17 Total Protein 5.3 g/dL (6.4-8.2) L 10/16/20 04:17 Albumin 1.1 g/dL (3.4-5.0) L 10/16/20 04:17 Globulin 4.2 g/dL (2.5-4.5) 10/16/20 04:17 Albumin/Globulin Ratio 0.3 Ratio (1.1-2.1) L 10/16/20 04:17 SARS CoV-2 RNA Rapid ROSE Negative (NEGATIVE) 10/15/20 16:20 Blood Type B POSITIVE 10/15/20 16:50 Antibody Screen Negative 10/15/20 16:50 Crossmatch See Detail 10/15/20 16:50 - Assessment and Plan 1: open wound and abscess of the abdominal wall. recent surgery for bladder cancer ( to obtain old records ). hypokalemia and hypo albuminemia . on IV ATB and local care .. 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
[2020-10-16] MEDS: KLONOPIN TAB 1 MG PO SCH (21:06)
[2020-10-17 06:12] LABS: BASOPHILS # (AUTO) 0.1 X10^3/uL (0.0-0.1); BASOPHILS % (AUTO) 0.3 % (0.2-1.0); EOSINOPHILS # (AUTO) 0.4 x10^3/uL (0.0-0.2); EOSINOPHILS % (AUTO) 1.9 % (0.9-2.9); HEMATOCRIT 24.8 % (36.0-47.0); HEMOGLOBIN 8.2 g/dL (12.0-16.0); LYMPHOCYTES # (AUTO) 1.1 X10^3/uL (1.3-2.9); LYMPHOCYTES % (AUTO) 4.9 % (21.0-51.0); MEAN CORPUSCULAR HEMOGLOBIN 25.5 pg (27.0-34.0); MEAN CORPUSCULAR VOLUME 77.3 fL (80.0-100.0); MEAN PLATELET VOLUME 6.9 fL (7.4-11.0); MONOCYTES # (AUTO) 1.1 x10^3/uL (0.3-0.8); MONOCYTES % (AUTO) 4.9 % (0.0-13.0); PLATELET COUNT 201 X10^3/uL (150.0-450.0); RED BLOOD COUNT 3.21 X10^6/uL (3.5-5.4); RED CELL DISTRIBUTION WIDTH 18.5 % (11.6-16.5); WHITE BLOOD COUNT 21.6 X10^3/uL (3.6-10.0)
[2020-10-17 06:23] LABS: ALANINE AMINOTRANSFERASE 10 Units/L (12-78); ALBUMIN 1.9 g/dL (3.4-5.0); ALKALINE PHOSPHATASE 49 Units/L (46-116); ASPARTATE AMINO TRANSFERASE 18 Units/L (15-37); BLOOD UREA NITROGEN 23 mg/dL (7-18); CALCIUM 8.6 mg/dL (8.5-10.1); CARBON DIOXIDE 18.7 mmol/L (21-32); CHLORIDE 111 mmol/L (98-107); COR CA(FOR HYPOALB) 10.3 mg/dL (8.5-10.1); CREATININE 1.48 mg/dL (0.55-1.02); SODIUM 144 mmol/L (136-145); eGFR NON BLACK RACES 36 (>60)
[2020-10-17 06:28] LABS: LACTIC ACID 2.3 mmol/L (0.4-2.0)
[2020-10-17 07:11] LABS: ANISOCYTOSIS SLIGHT; BAND NEUTROPHILS % 8 % (0-10); PLATELET MORPHOLOGY COMMENT NORMAL (NORMAL)
[2020-10-17] MEDS: ALBUMIN HUMAN 25%- 100 ML 100 ML IV SCH ×2 (08:08→21:55)
[2020-10-17] MEDS: FORTAZ or TAZICEF VIAL INJ 1 G in NS 100 ML IV + SPIKE MINIBAG* 100 ML IV SCH ×2 (09:12→21:55)
[2020-10-17] MEDS: NS 1000 ML 1,000 ML IV SCH (09:12)
[2020-10-17] MEDS: CIPRO IV 200 MG PREMIX* 200 MG/100 ML BAG IV SCH ×2 (09:32→21:55)
[2020-10-17] MEDS: NS + KCL 20 MEQ/L 1,000 ML IV SCH (11:43)
[2020-10-17] MEDS: PROCALAMINE 3 % 1,000 ML IV SCH (11:44)
[2020-10-17] MEDS: MAGNESIUM SULFATE 1 GRAM/100 mL PREMIX 1 GM/100 ML BAG IV PRN ×2 (13:43→14:54)
--- NOTE | 2020-10-17 14:12 | DR.PROGNOT ---
Hospital Progress Notes - Progress Note for Day of: Progress Note Date: 10/17/20 - Chief Complaint Chief Complaint: feeling a little better . tolerating diet . no nausea or vomiting . abdominal wound is still drainig moderate amount . no cellulitis . WBC 21.6... K 2.9..Hgb 8.2. afebrile . - Past Medical Family Social History Past Med/Fam/Surg Hx: No changes since H&P Allergies: Allergies cephalexin [From Keflex] Allergy (Verified 09/19/18 14:30) Penicillins Allergy (Verified 09/19/18 14:30) - Review Of Systems ROS: No change since H&P - Vital Signs Vital Signs: Temperature 98.5 F Pulse Rate [Apical] 54 Pulse Rate 101 Respiratory Rate 20 Blood Pressure [Right Arm] 107/54 Blood Pressure [Left Arm] 80/40 Blood Pressure 87/50 O2 Sat by Pulse Oximetry 93 - Physical Exam Oriented: Normal Eyes: Normal Ear: Normal Nose: Normal Throat: Normal Cardiovascular: Normal : Other (NEOBLADDER RECONSTRUCTION. LOCKE IN PLACE. 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 ) GI: Tenderness: Normal Skin: Wound (LEFT ABDOMEN WOUND DEHISCENCE WITH PURULENT DRAINAGE ) Musculoskeletal: Normal Psychiatric: Normal Mood Description: Calm Affect: Normal Speech Pattern: Clear, Appropriate - Laboratory and Diagnostics Result Diagrams: 10/17/20 05:52 10/17/20 05:52 Labs: 10/15/20 16:50 Blood Blood Culture - Preliminary 10/15/20 16:50 Blood Blood Culture - Preliminary 10/15/20 15:30 Abdomen Wound Gram Stain - Final 10/15/20 15:30 Abdomen Wound Culture - Preliminary Laboratory WBC 21.6 X10^3/uL (3.6-10.0) H 10/17/20 05:52 RBC 3.21 X10^6/uL (3.5-5.4) L 10/17/20 05:52 Hgb 8.2 g/dL (12.0-16.0) L 10/17/20 05:52 Hct 24.8 % (36.0-47.0) L 10/17/20 05:52 MCV 77.3 fL (80.0-100.0) L 10/17/20 05:52 MCH 25.5 pg (27.0-34.0) L 10/17/20 05:52 MCHC 33.0 g/dL (33.0-35.0) 10/17/20 05:52 RDW 18.5 % (11.6-16.5) H 10/17/20 05:52 Plt Count 201 X10^3/uL (150.0-450.0) 10/17/20 05:52 Plt Count Comment Adequate (ADEQUATE) 10/17/20 05:52 MPV 6.9 fL (7.4-11.0) L 10/17/20 05:52 Neut % (Auto) 88.0 % (42.0-75.0) H 10/17/20 05:52 Lymph % (Auto) 4.9 % (21.0-51.0) L 10/17/20 05:52 [place] % (Auto) 4.9 % (0.0-13.0) 10/17/20 05:52 Eos % (Auto) 1.9 % (0.9-2.9) 10/17/20 05:52 Baso % (Auto) 0.3 % (0.2-1.0) 10/17/20 05:52 Neut # (Auto) 19.0 x10^3/uL (2.2-4.8) H 10/17/20 05:52 Lymph # (Auto) 1.1 X10^3/uL (1.3-2.9) L 10/17/20 05:52 [place] # (Auto) 1.1 x10^3/uL (0.3-0.8) H 10/17/20 05:52 Eos # (Auto) 0.4 x10^3/uL (0.0-0.2) H 10/17/20 05:52 Baso # (Auto) 0.1 X10^3/uL (0.0-0.1) 10/17/20 05:52 Absolute Nucleated RBC 0.0 /100WBC 10/17/20 05:52 Total Counted 100 10/17/20 05:52 Neutrophils % (Manual) 78 % (39-76) H 10/17/20 05:52 Band Neutrophils % 8 % (0-10) 10/17/20 05:52 Lymphocytes % (Manual) 8 % (13-43) L 10/17/20 05:52 Monocytes % (Manual) 5 % (4-9) 10/17/20 05:52 Eosinophils % (Manual) 1 % (0-6) 10/17/20 05:52 Plt Morphology Comment Normal (NORMAL) 10/17/20 05:52 RBC Morphology Abnormal (NORMAL) A 10/17/20 05:52 Hypochromasia Slight A 10/16/20 04:17 Anisocytosis Slight A 10/17/20 05:52 Microcytosis Slight A 10/16/20 04:17 Sodium 144 mmol/L (136-145) 10/17/20 05:52 Corrected Sodium TNP 10/17/20 05:52 Potassium 2.9 mmol/L (3.5-5.1) L* 10/17/20 05:52 Chloride 111 mmol/L (98-107) H 10/17/20 05:52 Carbon Dioxide 18.7 mmol/L (21-32) L 10/17/20 05:52 BUN 23 mg/dL (7-18) H 10/17/20 05:52 Creatinine 1.48 mg/dL (0.55-1.02) H 10/17/20 05:52 Est GFR (MDRD) Af Amer 44 (>60) L 10/17/20 05:52 Est GFR (MDRD) Non-Af 36 (>60) L 10/17/20 05:52 Glucose 79 mg/dL (65-99) 10/17/20 05:52 Lactic Acid 2.3 mmol/L (0.4-2.0) H 10/17/20 05:52 Calcium 8.6 mg/dL (8.5-10.1) 10/17/20 05:52 Corrected Calcium 10.3 mg/dL (8.5-10.1) H 10/17/20 05:52 Magnesium 1.3 mg/dL (1.7-2.9) L 10/17/20 05:52 Total Bilirubin 0.60 mg/dL (0.2-1.0) 10/17/20 05:52 AST 18 Units/L (15-37) 10/17/20 05:52 ALT 10 Units/L (12-78) L 10/17/20 05:52 Alkaline Phosphatase 49 Units/L (46-116) 10/17/20 05:52 Total Protein 5.0 g/dL (6.4-8.2) L 10/17/20 05:52 Albumin 1.9 g/dL (3.4-5.0) L 10/17/20 05:52 Globulin 3.1 g/dL (2.5-4.5) 10/17/20 05:52 Albumin/Globulin Ratio 0.6 Ratio (1.1-2.1) L 10/17/20 05:52 SARS CoV-2 RNA Rapid ROSE Negative (NEGATIVE) 10/15/20 16:20 Blood Type B POSITIVE 10/15/20 16:50 Antibody Screen Negative 10/15/20 16:50 Crossmatch See Detail 10/15/20 16:50 - Assessment and Plan 1: open abdominal wall wound possible bowel fistula. recent surgery for bladder cancer . 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 hypokalemia and hypo albuminemia . on IV ATB and local care .. 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
[2020-10-17] MEDS: NORCO 5/325 MG TAB PO PRN (18:01)
[2020-10-17] MEDS ORDERED: LOVENOX INJ 40 MG SYR SC SCH (21:00)
--- NOTE | 2020-10-17 21:11 | RAD ---
STUDY: FRONTAL VIEW CHESTCOMPARISON: NoneHISTORY: CENTRAL LINE PLACEMENTFINDINGS:Right-sided central line is seen with tip projecting over the distal SVC near the right atrial junction region.No focal consolidation is seen.The heart size is within normal limits.The mediastinum is unremarkable.There is no evidence of pleural effusion or gross pneumothorax.The trachea is midline.IMPRESSION:1. No focal consolidation is seen.2. The heart size is normal.Electronically signed by: Jon Lewis (Oct 17, 2020 21:09:44)
[2020-10-17] MEDS: KLONOPIN TAB 1 MG PO SCH (21:54)
[2020-10-17] MEDS: LOVENOX INJ 30 MG SYR SC SCH (22:13)
[2020-10-18] MEDS: NS + KCL 20 MEQ/L 1,000 ML IV SCH ×4 (00:57→23:50)
[2020-10-18] MEDS: MAGNESIUM SULFATE 1 GRAM/100 mL PREMIX 1 GM/100 ML BAG IV PRN ×2 (02:56→04:42)
[2020-10-18 06:58] LABS: BASOPHILS # (AUTO) 0.1 X10^3/uL (0.0-0.1); BASOPHILS % (AUTO) 0.2 % (0.2-1.0); EOSINOPHILS # (AUTO) 0.4 x10^3/uL (0.0-0.2); EOSINOPHILS % (AUTO) 1.9 % (0.9-2.9); HEMATOCRIT 23.9 % (36.0-47.0); HEMOGLOBIN 7.8 g/dL (12.0-16.0); LYMPHOCYTES # (AUTO) 1.2 X10^3/uL (1.3-2.9); LYMPHOCYTES % (AUTO) 5.1 % (21.0-51.0); MEAN CORPUSCULAR HEMOGLOBIN 25.4 pg (27.0-34.0); MEAN CORPUSCULAR HGB CONC 32.4 g/dL (33.0-35.0); MEAN CORPUSCULAR VOLUME 78.4 fL (80.0-100.0); MEAN PLATELET VOLUME 7.2 fL (7.4-11.0); MONOCYTES # (AUTO) 1.2 x10^3/uL (0.3-0.8); MONOCYTES % (AUTO) 5.1 % (0.0-13.0); NEUTROPHILS # (AUTO) 20.7 x10^3/uL (2.2-4.8); NEUTROPHILS % (AUTO) 87.7 % (42.0-75.0); PLATELET COUNT 200 X10^3/uL (150.0-450.0); RED BLOOD COUNT 3.05 X10^6/uL (3.5-5.4); RED CELL DISTRIBUTION WIDTH 18.8 % (11.6-16.5); WHITE BLOOD COUNT 23.7 X10^3/uL (3.6-10.0)
[2020-10-18 07:04] LABS: LACTIC ACID 3.6 mmol/L (0.4-2.0)
[2020-10-18 07:14] LABS: ALBUMIN 1.8 g/dL (3.4-5.0); CALCIUM 9.1 mg/dL (8.5-10.1); CARBON DIOXIDE 19.1 mmol/L (21-32); COR CA(FOR HYPOALB) 10.9 mg/dL (8.5-10.1); CREATININE 1.61 mg/dL (0.55-1.02); MAGNESIUM 3.4 mg/dL (1.7-2.9); TOTAL PROTEIN 5.1 g/dL (6.4-8.2)
[2020-10-18 07:22] LABS: ANISOCYTOSIS SLIGHT; BAND NEUTROPHILS % 3 % (0-10); HYPOCHROMASIA SLIGHT; PLATELET MORPHOLOGY COMMENT NORMAL (NORMAL)
[2020-10-18] MEDS: ALBUMIN HUMAN 25%- 100 ML 100 ML IV SCH ×2 (09:12→20:51)
--- NOTE | 2020-10-18 10:15 | PCM.PROG ---
Progress Note - Progress Note for Day of Date of Exam: 10/17/20 - Subjective Subjective: WAS ADMITTED FOR TREATMENT OF SEPSIS, ABDOMINAL WOUND DEHISCENCE, ABDOMINAL WALL FISTULA, LEUKOCYTOSIS, ANEMIA, HYPOKALEMIA, CHRONIC KIDNEY DISEASE. SHE HAS A HX BLADDER CANCER AND KIDNEY CANCER. RIGHT KIDNEY HAS BEEN REMOVED. BLADDER HAS ALSO BEEN REMOVED. PATIENT HAS HAD NEOBLADDER RECONSTRUCTION, HAS A UROSTOMY, AND CURRENTLY HAS A NEPHROSTOMY TUBE TO LEFT KIDNEY. PATIENT REPORTS WEAKNESS THIS MORNING. SHE ALSO REPORTS MILD ABDOMINAL PAIN AND LOWER EXTREMITY SWELLING. ON EXAMINATION, HEART IS REGULAR IN RATE AND RHYTHM. BILATERAL LUNGS ARE NOTED WITH DIMINISHED LUNG SOUNDS THROUGHOUT. ABDOMEN IS ROUND, SOFT, AND NOTED TO HAVE HYPOACTIVE BOWEL SOUNDS THROUGHOUT. THERE IS AN OSTOMY BAG COVERING WOUND TO THE LEFT SIDE ABDOMEN TO COLLECT DRAINAGE. THERE CONTINUES TO BE PURULENT DRAINAGE IN BAG. LOCKE CATHETER NOTED TO BEDSIDE DRAINAGE. HER VITALS THIS MORNING ARE: 98.5-54-20-93%-107/54. LABS WERE OBTAINED. ABNORMAL LAB VALUES INCLUDE THE FOLLOWING: WBC 21.6, RBC 3.21, H GB 8.2, HCT 24.8, POTASSIUM 2.9, CHLORIDE 111, CARBON DIOXIDE 18.7, BUN 23, CREATININE 1.48, LACTIC ACID 2.3, MAGNESIUM 1.3, ALT 10, TOTAL PROTEIN 5.0, ALBUMIN 1.9. WOUND AND BLOOD CULTURES ARE PENDING. AN ABDOMEN/PELVIS CT WITHOUT CONTRAST WAS OBTAINED YESTERDAY. IT REVEALED: Worsening size of mass in the pelvis which extends into the subcutaneous soft tissues. Adjacent lymphadenopathy is seen in the pelvis and groin, similar to prior study. There is a 5.3 x 1.8 cm subcutaneous fluid collection to the left of midline, extending inferior to the skin wound. This could be an abscess. It fills with injected contrast from the skin wound. No intraperitoneal fistula is seen. Improved left-sided hydronephrosis status post percutaneous nephrostomy tube. Possible development of acute cholecystitis. SHE IS CURRENTLY RECEIVING: NORMAL SALINE WITH 20MEQ KCL AT 110 ML/HR, PROCALAMINE AT 40 ML/HR, ALBUMIN 25% IV BID, CIPRO 200MG IV Q12H, FORTAZ 1G IV Q12H, LOVENOX 30MG SC HS, KLONOPIN 1MG PO HS, NORCO 5/325MG PO Q6H PRN. WE WILL CONTINUE WITH CURRENT PLAN OF CARE TODAY. OTHERWISE, WE PLAN TO FOLLOW UP WITH AM LABS AND CONTINUE TO MONITOR. WILL CONTINUE TO FOLLOW PATIENT WELL. TIME SPENT ON CLINICAL ASSESSMENT, REVIEWING LABS AND IMAGING, DECISION MAKING, AND DOCUMENTATION GREATER THAN 45 MINUTES. - Past Medical Family Social History Past Med/Fam/Surg Hx: No changes since H&P Allergies: Allergies cephalexin [From Keflex] Allergy (Verified 09/19/18 14:30) Penicillins Allergy (Verified 09/19/18 14:30) - Review of Systems ROS: No change since H&P - Vital Signs and I&O's Vital Signs: Temperature 98 F Pulse Rate [Apical] 80 Pulse Rate 101 Respiratory Rate 18 Blood Pressure [Right Arm] 99/54 Blood Pressure [Left Arm] 93/55 Blood Pressure 87/50 O2 Sat by Pulse Oximetry 93 Intake and Output: Intake & Output 10/15/20 10/16/20 10/17/20 10/18/20 11:59 11:59 11:59 11:59 Intake Total 2258 / 2258 4288 / 4288 3113 / 3113 Output Total 700 / 700 1100 / 1100 1915 / 1915 Balance 1558 / 1558 3188 / 3188 1198 / 1198 - Physical Exam Oriented: Normal Eyes: Normal Ear: Normal Nose: Normal Throat: Normal Respiratory: Generalized, Diminished Cardiovascular: Edema (BLE 1+ PITTING EDEMA ) : Other (NEOBLADDER RECONSTRUCTION. LOCKE IN PLACE. NEPHROSTOMY TUBE LEFT KIDNEY ) Auscultation: Bowel Sounds: Normal Palpation: Normal Tenderness: Normal Skin: Wound (LEFT ABDOMEN WOUND DEHISCENCE WITH PURULENT DRAINAGE ) Musculoskeletal: Normal Psychiatric: Normal Mood Description: Calm Affect: Normal Speech Pattern: Clear, Appropriate - Laboratory and Diagnostics Result Diagrams: 10/18/20 05:46 10/18/20 05:46 Labs: 10/15/20 15:30 Abdomen Wound Gram Stain - Final 10/15/20 15:30 Abdomen Wound Culture - Preliminary 10/15/20 16:50 Blood Blood Culture - Preliminary 10/15/20 16:50 Blood Blood Culture - Preliminary Laboratory WBC 23.7 X10^3/uL (3.6-10.0) H 10/18/20 05:46 RBC 3.05 X10^6/uL (3.5-5.4) L 10/18/20 05:46 Hgb 7.8 g/dL (12.0-16.0) L 10/18/20 05:46 Hct 23.9 % (36.0-47.0) L 10/18/20 05:46 MCV 78.4 fL (80.0-100.0) L 10/18/20 05:46 MCH 25.4 pg (27.0-34.0) L 10/18/20 05:46 MCHC 32.4 g/dL (33.0-35.0) L 10/18/20 05:46 RDW 18.8 % (11.6-16.5) H 10/18/20 05:46 Plt Count 200 X10^3/uL (150.0-450.0) 10/18/20 05:46 Plt Count Comment Adequate (ADEQUATE) 10/18/20 05:46 MPV 7.2 fL (7.4-11.0) L 10/18/20 05:46 Neut % (Auto) 87.7 % (42.0-75.0) H 10/18/20 05:46 Lymph % (Auto) 5.1 % (21.0-51.0) L 10/18/20 05:46 [place] % (Auto) 5.1 % (0.0-13.0) 10/18/20 05:46 Eos % (Auto) 1.9 % (0.9-2.9) 10/18/20 05:46 Baso % (Auto) 0.2 % (0.2-1.0) 10/18/20 05:46 Neut # (Auto) 20.7 x10^3/uL (2.2-4.8) H 10/18/20 05:46 Lymph # (Auto) 1.2 X10^3/uL (1.3-2.9) L 10/18/20 05:46 [place] # (Auto) 1.2 x10^3/uL (0.3-0.8) H 10/18/20 05:46 Eos # (Auto) 0.4 x10^3/uL (0.0-0.2) H 10/18/20 05:46 Baso # (Auto) 0.1 X10^3/uL (0.0-0.1) 10/18/20 05:46 Absolute Nucleated RBC 0.0 /100WBC 10/18/20 05:46 Total Counted 100 10/18/20 05:46 Neutrophils % (Manual) 87 % (39-76) H 10/18/20 05:46 Band Neutrophils % 3 % (0-10) 10/18/20 05:46 Lymphocytes % (Manual) 6 % (13-43) L 10/18/20 05:46 Monocytes % (Manual) 3 % (4-9) L 10/18/20 05:46 Eosinophils % (Manual) 1 % (0-6) 10/18/20 05:46 Plt Morphology Comment Normal (NORMAL) 10/18/20 05:46 RBC Morphology Abnormal (NORMAL) A 10/18/20 05:46 Hypochromasia Slight A 10/18/20 05:46 Anisocytosis Slight A 10/18/20 05:46 Microcytosis Slight A 10/16/20 04:17 Sodium 141 mmol/L (136-145) 10/18/20 05:46 Corrected Sodium 141 mmol/L (136-145) 10/18/20 05:46 Potassium 3.0 mmol/L (3.5-5.1) L* 10/18/20 05:46 Chloride 110 mmol/L (98-107) H 10/18/20 05:46 Carbon Dioxide 19.1 mmol/L (21-32) L 10/18/20 05:46 BUN 22 mg/dL (7-18) H 10/18/20 05:46 Creatinine 1.61 mg/dL (0.55-1.02) H 10/18/20 05:46 Est GFR (MDRD) Af Amer 40 (>60) L 10/18/20 05:46 Est GFR (MDRD) Non-Af 33 (>60) L 10/18/20 05:46 Glucose 118 mg/dL (65-99) H 10/18/20 05:46 Lactic Acid 3.6 mmol/L (0.4-2.0) H 10/18/20 05:46 Calcium 9.1 mg/dL (8.5-10.1) 10/18/20 05:46 Corrected Calcium 10.9 mg/dL (8.5-10.1) H 10/18/20 05:46 Magnesium 3.4 mg/dL (1.7-2.9) H 10/18/20 05:46 Total Bilirubin 0.30 mg/dL (0.2-1.0) 10/18/20 05:46 AST 20 Units/L (15-37) 10/18/20 05:46 ALT 10 Units/L (12-78) L 10/18/20 05:46 Alkaline Phosphatase 89 Units/L (46-116) 10/18/20 05:46 Total Protein 5.1 g/dL (6.4-8.2) L 10/18/20 05:46 Albumin 1.8 g/dL (3.4-5.0) L 10/18/20 05:46 Globulin 3.3 g/dL (2.5-4.5) 10/18/20 05:46 Albumin/Globulin Ratio 0.5 Ratio (1.1-2.1) L 10/18/20 05:46 SARS CoV-2 RNA Rapid ROSE Negative (NEGATIVE) 10/15/20 16:20 Blood Type B POSITIVE 10/15/20 16:50 Antibody Screen Negative 10/15/20 16:50 Crossmatch See Detail 10/15/20 16:50 - Plan (1) Sepsis Status: Acute Qualifiers: Sepsis type: sepsis due to unspecified organism Sepsis acute organ dysfunction status: unspecified Qualified Code(s): A41.9 - Sepsis, unspecified organism Plan: NORMAL SALINE AT 110 ML/HR, PROCALAMINE AT 40 ML/HR, ALBUMIN 25% IV BID, CIPRO 200MG IV Q12H, FORTAZ 1G IV Q12H, KLONOPIN 1MG PO HS, NORCO 5/325MG PO Q6H PRN. WOUND AND BLOOD CULTURE SET UP (2) Abdominal wound dehiscence Status: Acute Qualifiers: Encounter type: initial encounter Qualified Code(s): T81.30XA - Disruption of wound, unspecified, initial encounter (3) Abdominal wall fistula Status: Acute (4) Neutrophilic leukocytosis Status: Acute (5) Bladder cancer Status: Acute Qualifiers: Bladder location: unspecified site Qualified Code(s): C67.9 - Malignant neoplasm of bladder, unspecified (6) Hypochromic microcytic anemia Status: Acute (7) Acute hypokalemia Status: Acute (8) CKD (chronic kidney disease) stage 4, GFR 15-29 ml/min Status: Chronic
--- NOTE | 2020-10-18 10:22 | PCM.PROG ---
Progress Note - Progress Note for Day of Date of Exam: 10/18/20 - Subjective Subjective: WAS ADMITTED FOR TREATMENT OF SEPSIS, ABDOMINAL WOUND DEHISCENCE, ABDOMINAL WALL FISTULA, LEUKOCYTOSIS, ANEMIA, HYPOKALEMIA, CHRONIC KIDNEY DISEASE. SHE HAS A HX BLADDER CANCER AND KIDNEY CANCER. RIGHT KIDNEY HAS BEEN REMOVED. BLADDER HAS ALSO BEEN REMOVED. PATIENT HAS HAD NEOBLADDER RECONSTRUCTION, HAS A UROSTOMY, AND CURRENTLY HAS A NEPHROSTOMY TUBE TO LEFT KIDNEY. PATIENT CONTINUES WITH COMPLAINTS OF WEAKNESS, ABDOMINAL PAIN, LOWER EXTREMITY SWELLING, AND ALSO REPORTS COUGHING/WHEEZING. ON EXAMINATION, HEART IS REGULAR IN RATE AND RHYTHM. BILATERAL LUNGS ARE NOTED WITH DIMINISHED LUNG SOUNDS THROUGHOUT. ABDOMEN IS ROUND, SOFT, AND NOTED TO HAVE HYPOACTIVE BOWEL SOUNDS THROUGHOUT. THERE IS AN OSTOMY BAG COVERING WOUND TO THE LEFT SIDE ABDOMEN TO COLLECT DRAINAGE. THERE CONTINUES TO BE PURULENT DRAINAGE IN BAG. LOCKE CATHETER NOTED TO BEDSIDE DRAINAGE. BLE ARE NOTED TO HAVE 1+ PITTING EDEMA. HER VITALS THIS MORNING ARE: 98.0-80-18-93%-93/55. LABS WERE OBTAINED. ABNORMAL LAB VALUES INCLUDE THE FOLLOWING: WBC 23.7, RBC 3.05, HGB 7.8, HCT 23.9, POTASSIUM 3.0, CHLORIDE 110, CARBON DIOXIDE 19.1, BUN 22, CREATININE 1.61, GLUCOSE 118, LACTIC ACID 3.6, MAGNESIUM 3.4, ALT 10, TOTAL PROTEIN 5.1, ALBUMIN 1.8. WOUND AND BLOOD CULTURES ARE PENDING. 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 SHE IS CURRENTLY RECEIVING: NORMAL SALINE WITH 20MEQ KCL AT 110 ML/HR, PROCALAMINE AT 40 ML/HR, ALBUMIN 25% IV BID, CIPRO 200MG IV Q12H, FORTAZ 1G IV Q12H, LOVENOX 30MG SC HS, KLONOPIN 1MG PO HS, NORCO 5/325MG PO Q6H PRN. WE WILL CONTINUE WITH CURRENT PLAN OF CARE TODAY. WE WILL ADD VISTARIL 25MG PO Q8H PRN ITCHING AND TESSALON PERLES 200MG PO TID FOR COUGH. OTHERWISE, WE PLAN TO FOLLOW UP WITH AM LABS AND CONTINUE TO MONITOR. WILL CONTINUE TO FOLLOW PATIENT WELL. TIME SPENT ON CLINICAL ASSESSMENT, REVIEWING LABS AND IMAGING, DECISION MAKING, AND DOCUMENTATION GREATER THAN 45 MINUTES. - Past Medical Family Social History Past Med/Fam/Surg Hx: No changes since H&P Allergies: Allergies cephalexin [From Keflex] Allergy (Verified 09/19/18 14:30) Penicillins Allergy (Verified 09/19/18 14:30) - Review of Systems ROS: No change since H&P - Vital Signs and I&O's Vital Signs: Temperature 98 F Pulse Rate [Apical] 80 Pulse Rate 101 Respiratory Rate 18 Blood Pressure [Right Arm] 99/54 Blood Pressure [Left Arm] 93/55 Blood Pressure 87/50 O2 Sat by Pulse Oximetry 93 Intake and Output: Intake & Output 10/15/20 10/16/20 10/17/20 10/18/20 11:59 11:59 11:59 11:59 Intake Total 2258 / 2258 4288 / 4288 3113 / 3113 Output Total 700 / 700 1100 / 1100 1915 / 1915 Balance 1558 / 1558 3188 / 3188 1198 / 1198 - Physical Exam Oriented: Normal Eyes: Normal Ear: Normal Nose: Normal Throat: Normal Respiratory: Generalized, Diminished Cardiovascular: Edema (BLE 1+ PITTING EDEMA ) : Other (NEOBLADDER RECONSTRUCTION. LOCKE IN PLACE. NEPHROSTOMY TUBE LEFT KIDNEY ) Auscultation: Bowel Sounds: Normal Tenderness: Normal Skin: Wound (LEFT ABDOMEN WOUND DEHISCENCE WITH PURULENT DRAINAGE ) Musculoskeletal: Normal Psychiatric: Normal Mood Description: Calm Affect: Normal Speech Pattern: Clear, Appropriate - Laboratory and Diagnostics Result Diagrams: 10/18/20 05:46 10/18/20 05:46 Labs: 10/15/20 15:30 Abdomen Wound Gram Stain - Final 10/15/20 15:30 Abdomen Wound Culture - Preliminary 10/15/20 16:50 Blood Blood Culture - Preliminary 10/15/20 16:50 Blood Blood Culture - Preliminary Laboratory WBC 23.7 X10^3/uL (3.6-10.0) H 10/18/20 05:46 RBC 3.05 X10^6/uL (3.5-5.4) L 10/18/20 05:46 Hgb 7.8 g/dL (12.0-16.0) L 10/18/20 05:46 Hct 23.9 % (36.0-47.0) L 10/18/20 05:46 MCV 78.4 fL (80.0-100.0) L 10/18/20 05:46 MCH 25.4 pg (27.0-34.0) L 10/18/20 05:46 MCHC 32.4 g/dL (33.0-35.0) L 10/18/20 05:46 RDW 18.8 % (11.6-16.5) H 10/18/20 05:46 Plt Count 200 X10^3/uL (150.0-450.0) 10/18/20 05:46 Plt Count Comment Adequate (ADEQUATE) 10/18/20 05:46 MPV 7.2 fL (7.4-11.0) L 10/18/20 05:46 Neut % (Auto) 87.7 % (42.0-75.0) H 10/18/20 05:46 Lymph % (Auto) 5.1 % (21.0-51.0) L 10/18/20 05:46 [place] % (Auto) 5.1 % (0.0-13.0) 10/18/20 05:46 Eos % (Auto) 1.9 % (0.9-2.9) 10/18/20 05:46 Baso % (Auto) 0.2 % (0.2-1.0) 10/18/20 05:46 Neut # (Auto) 20.7 x10^3/uL (2.2-4.8) H 10/18/20 05:46 Lymph # (Auto) 1.2 X10^3/uL (1.3-2.9) L 10/18/20 05:46 [place] # (Auto) 1.2 x10^3/uL (0.3-0.8) H 10/18/20 05:46 Eos # (Auto) 0.4 x10^3/uL (0.0-0.2) H 10/18/20 05:46 Baso # (Auto) 0.1 X10^3/uL (0.0-0.1) 10/18/20 05:46 Absolute Nucleated RBC 0.0 /100WBC 10/18/20 05:46 Total Counted 100 10/18/20 05:46 Neutrophils % (Manual) 87 % (39-76) H 10/18/20 05:46 Band Neutrophils % 3 % (0-10) 10/18/20 05:46 Lymphocytes % (Manual) 6 % (13-43) L 10/18/20 05:46 Monocytes % (Manual) 3 % (4-9) L 10/18/20 05:46 Eosinophils % (Manual) 1 % (0-6) 10/18/20 05:46 Plt Morphology Comment Normal (NORMAL) 10/18/20 05:46 RBC Morphology Abnormal (NORMAL) A 10/18/20 05:46 Hypochromasia Slight A 10/18/20 05:46 Anisocytosis Slight A 10/18/20 05:46 Microcytosis Slight A 10/16/20 04:17 Sodium 141 mmol/L (136-145) 10/18/20 05:46 Corrected Sodium 141 mmol/L (136-145) 10/18/20 05:46 Potassium 3.0 mmol/L (3.5-5.1) L* 10/18/20 05:46 Chloride 110 mmol/L (98-107) H 10/18/20 05:46 Carbon Dioxide 19.1 mmol/L (21-32) L 10/18/20 05:46 BUN 22 mg/dL (7-18) H 10/18/20 05:46 Creatinine 1.61 mg/dL (0.55-1.02) H 10/18/20 05:46 Est GFR (MDRD) Af Amer 40 (>60) L 10/18/20 05:46 Est GFR (MDRD) Non-Af 33 (>60) L 10/18/20 05:46 Glucose 118 mg/dL (65-99) H 10/18/20 05:46 Lactic Acid 3.6 mmol/L (0.4-2.0) H 10/18/20 05:46 Calcium 9.1 mg/dL (8.5-10.1) 10/18/20 05:46 Corrected Calcium 10.9 mg/dL (8.5-10.1) H 10/18/20 05:46 Magnesium 3.4 mg/dL (1.7-2.9) H 10/18/20 05:46 Total Bilirubin 0.30 mg/dL (0.2-1.0) 10/18/20 05:46 AST 20 Units/L (15-37) 10/18/20 05:46 ALT 10 Units/L (12-78) L 10/18/20 05:46 Alkaline Phosphatase 89 Units/L (46-116) 10/18/20 05:46 Total Protein 5.1 g/dL (6.4-8.2) L 10/18/20 05:46 Albumin 1.8 g/dL (3.4-5.0) L 10/18/20 05:46 Globulin 3.3 g/dL (2.5-4.5) 10/18/20 05:46 Albumin/Globulin Ratio 0.5 Ratio (1.1-2.1) L 10/18/20 05:46 SARS CoV-2 RNA Rapid ROSE Negative (NEGATIVE) 10/15/20 16:20 Blood Type B POSITIVE 10/15/20 16:50 Antibody Screen Negative 10/15/20 16:50 Crossmatch See Detail 10/15/20 16:50 - Plan (1) Sepsis Status: Acute Qualifiers: Sepsis type: sepsis due to unspecified organism Sepsis acute organ dysfunction status: unspecified Qualified Code(s): A41.9 - Sepsis, unspecified organism Plan: NORMAL SALINE AT 110 ML/HR, PROCALAMINE AT 40 ML/HR, ALBUMIN 25% IV BID, CIPRO 200MG IV Q12H, FORTAZ 1G IV Q12H, KLONOPIN 1MG PO HS, NORCO 5/325MG PO Q6H PRN, VISTARIL 25MG PO Q8H, AND TESSALON PERLES 200MG PO TID (2) Abdominal wound dehiscence Status: Acute Qualifiers: Encounter type: initial encounter Qualified Code(s): T81.30XA - Disruption of wound, unspecified, initial encounter (3) Abdominal wall fistula Status: Acute (4) Neutrophilic leukocytosis Status: Acute (5) Bladder cancer Status: Acute Qualifiers: Bladder location: unspecified site Qualified Code(s): C67.9 - Malignant neoplasm of bladder, unspecified (6) Hypochromic microcytic anemia Status: Acute (7) Acute hypokalemia Status: Acute (8) CKD (chronic kidney disease) stage 4, GFR 15-29 ml/min Status: Chronic
[2020-10-18] MEDS: FORTAZ or TAZICEF VIAL INJ 1 G in NS 100 ML IV + SPIKE MINIBAG* 100 ML IV SCH ×2 (10:23→20:49)
[2020-10-18] MEDS: CIPRO IV 200 MG PREMIX* 200 MG/100 ML BAG IV SCH ×2 (10:23→20:49)
[2020-10-18] MEDS: TESSALON PERLES PO SCH ×3 (10:23→21:01)
[2020-10-18] MEDS: PROCALAMINE 3 % 1,000 ML IV SCH (10:23)
[2020-10-18] MEDS ORDERED: NS 1000 ML 1,000 ML IV ONE (12:10)
[2020-10-18] MEDS: VISTARIL PO PRN (13:13)
--- NOTE | 2020-10-18 14:40 | DR.PROGNOT ---
Hospital Progress Notes - Progress Note for Day of: Progress Note Date: 10/18/20 - Chief Complaint Chief Complaint: no abdominal pain, no vomiting. tolerating diet .. abdominal wound is still drainig 490 cc in 24 h . WBC 23.6... K 3 ..Hgb 7.8 . Albumin 1.8. afebrile . - Past Medical Family Social History Past Med/Fam/Surg Hx: No changes since H&P Allergies: Allergies cephalexin [From Keflex] Allergy (Verified 09/19/18 14:30) Penicillins Allergy (Verified 09/19/18 14:30) - Review Of Systems ROS: No change since H&P - Vital Signs Vital Signs: Temperature 98 F Pulse Rate [Apical] 98 Pulse Rate 101 Respiratory Rate 20 Blood Pressure [Right Arm] 99/54 Blood Pressure [Left Arm] 88/51 Blood Pressure 87/50 O2 Sat by Pulse Oximetry 96 - Physical Exam Oriented: Normal Eyes: Normal Ear: Normal Nose: Normal Throat: Normal Respiratory: Generalized, Diminished Cardiovascular: Edema (BLE 1+ PITTING EDEMA ) : Other (NEOBLADDER RECONSTRUCTION. LOCKE IN PLACE. NEPHROSTOMY TUBE LEFT KIDNEY ) GI:Auscultation: Normal GI:Palpation: Normal GI: Tenderness: Normal Skin: Wound ( abdominal wound WITH moderate DRAINAGE ) Musculoskeletal: Normal Psychiatric: Normal Mood Description: Calm Affect: Normal Speech Pattern: Clear, Appropriate - Laboratory and Diagnostics Result Diagrams: 10/18/20 05:46 10/18/20 05:46 Labs: 10/15/20 15:30 Abdomen Wound Gram Stain - Final 10/15/20 15:30 Abdomen Wound Culture - Preliminary 10/15/20 16:50 Blood Blood Culture - Preliminary 10/15/20 16:50 Blood Blood Culture - Preliminary Laboratory WBC 23.7 X10^3/uL (3.6-10.0) H 10/18/20 05:46 RBC 3.05 X10^6/uL (3.5-5.4) L 10/18/20 05:46 Hgb 7.8 g/dL (12.0-16.0) L 10/18/20 05:46 Hct 23.9 % (36.0-47.0) L 10/18/20 05:46 MCV 78.4 fL (80.0-100.0) L 10/18/20 05:46 MCH 25.4 pg (27.0-34.0) L 10/18/20 05:46 MCHC 32.4 g/dL (33.0-35.0) L 10/18/20 05:46 RDW 18.8 % (11.6-16.5) H 10/18/20 05:46 Plt Count 200 X10^3/uL (150.0-450.0) 10/18/20 05:46 Plt Count Comment Adequate (ADEQUATE) 10/18/20 05:46 MPV 7.2 fL (7.4-11.0) L 10/18/20 05:46 Neut % (Auto) 87.7 % (42.0-75.0) H 10/18/20 05:46 Lymph % (Auto) 5.1 % (21.0-51.0) L 10/18/20 05:46 [place] % (Auto) 5.1 % (0.0-13.0) 10/18/20 05:46 Eos % (Auto) 1.9 % (0.9-2.9) 10/18/20 05:46 Baso % (Auto) 0.2 % (0.2-1.0) 10/18/20 05:46 Neut # (Auto) 20.7 x10^3/uL (2.2-4.8) H 10/18/20 05:46 Lymph # (Auto) 1.2 X10^3/uL (1.3-2.9) L 10/18/20 05:46 [place] # (Auto) 1.2 x10^3/uL (0.3-0.8) H 10/18/20 05:46 Eos # (Auto) 0.4 x10^3/uL (0.0-0.2) H 10/18/20 05:46 Baso # (Auto) 0.1 X10^3/uL (0.0-0.1) 10/18/20 05:46 Absolute Nucleated RBC 0.0 /100WBC 10/18/20 05:46 Total Counted 100 10/18/20 05:46 Neutrophils % (Manual) 87 % (39-76) H 10/18/20 05:46 Band Neutrophils % 3 % (0-10) 10/18/20 05:46 Lymphocytes % (Manual) 6 % (13-43) L 10/18/20 05:46 Monocytes % (Manual) 3 % (4-9) L 10/18/20 05:46 Eosinophils % (Manual) 1 % (0-6) 10/18/20 05:46 Plt Morphology Comment Normal (NORMAL) 10/18/20 05:46 RBC Morphology Abnormal (NORMAL) A 10/18/20 05:46 Hypochromasia Slight A 10/18/20 05:46 Anisocytosis Slight A 10/18/20 05:46 Microcytosis Slight A 10/16/20 04:17 Sodium 141 mmol/L (136-145) 10/18/20 05:46 Corrected Sodium 141 mmol/L (136-145) 10/18/20 05:46 Potassium 3.0 mmol/L (3.5-5.1) L* 10/18/20 05:46 Chloride 110 mmol/L (98-107) H 10/18/20 05:46 Carbon Dioxide 19.1 mmol/L (21-32) L 10/18/20 05:46 BUN 22 mg/dL (7-18) H 10/18/20 05:46 Creatinine 1.61 mg/dL (0.55-1.02) H 10/18/20 05:46 Est GFR (MDRD) Af Amer 40 (>60) L 10/18/20 05:46 Est GFR (MDRD) Non-Af 33 (>60) L 10/18/20 05:46 Glucose 118 mg/dL (65-99) H 10/18/20 05:46 Lactic Acid 3.6 mmol/L (0.4-2.0) H 10/18/20 05:46 Calcium 9.1 mg/dL (8.5-10.1) 10/18/20 05:46 Corrected Calcium 10.9 mg/dL (8.5-10.1) H 10/18/20 05:46 Magnesium 3.4 mg/dL (1.7-2.9) H 10/18/20 05:46 Total Bilirubin 0.30 mg/dL (0.2-1.0) 10/18/20 05:46 AST 20 Units/L (15-37) 10/18/20 05:46 ALT 10 Units/L (12-78) L 10/18/20 05:46 Alkaline Phosphatase 89 Units/L (46-116) 10/18/20 05:46 Total Protein 5.1 g/dL (6.4-8.2) L 10/18/20 05:46 Albumin 1.8 g/dL (3.4-5.0) L 10/18/20 05:46 Globulin 3.3 g/dL (2.5-4.5) 10/18/20 05:46 Albumin/Globulin Ratio 0.5 Ratio (1.1-2.1) L 10/18/20 05:46 SARS CoV-2 RNA Rapid ROSE Negative (NEGATIVE) 10/15/20 16:20 Blood Type B POSITIVE 10/15/20 16:50 Antibody Screen Negative 10/15/20 16:50 Crossmatch See Detail 10/15/20 16:50 - Assessment and Plan 1: open abdominal wall wound possible bowel fistula. recent surgery for bladder cancer . 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 hypokalemia and hypo albuminemia . on IV ATB ,nutritional support , PT to ambulate and local care of the fistula site .. for abdominal CT with oral contrast looking for bowel fistula - Problem Patient Problems: Patient Problems Abdominal wound dehiscence (Acute) T81.30XA Abdominal wall fistula (Acute) K63.2 Neutrophilic leukocytosis (Acute) D72.9 CKD (chronic kidney disease) stage 4, GFR 15-29 ml/min (Chronic) N18.4 Bladder cancer (Acute) C67.9 Hypochromic microcytic anemia (Acute) D50.9 Acute hypokalemia (Acute) E87.6 Sepsis (Acute) A41.9
[2020-10-18] MEDS: KLONOPIN TAB 1 MG PO SCH (21:01)
[2020-10-18] MEDS: LOVENOX INJ 30 MG SYR SC SCH (21:26)
[2020-10-18] MEDS ORDERED: ROBITUSSIN DM PO PRN (22:51)
[2020-10-18] MEDS ORDERED: XOPENEX 1.25 MG/3 ML NEBULE NEB ONE (22:56)
[2020-10-18] MEDS: XOPENEX 1.25 MG/3 ML NEBULE NEB PRN (23:10)
[2020-10-18] MEDS: NORCO 5/325 MG TAB PO PRN (23:49)
[2020-10-19] MEDS: NS + KCL 20 MEQ/L 1,000 ML IV SCH ×3 (03:05→20:47)
[2020-10-19] MEDS: TESSALON PERLES PO SCH ×3 (05:46→21:06)
[2020-10-19] MEDS: VISTARIL PO PRN ×2 (06:08→19:40)
[2020-10-19 06:29] LABS: BASOPHILS # (AUTO) 0.1 X10^3/uL (0.0-0.1); BASOPHILS % (AUTO) 0.3 % (0.2-1.0); EOSINOPHILS # (AUTO) 0.4 x10^3/uL (0.0-0.2); EOSINOPHILS % (AUTO) 1.4 % (0.9-2.9); HEMATOCRIT 22.1 % (36.0-47.0); HEMOGLOBIN 7.1 g/dL (12.0-16.0); LYMPHOCYTES # (AUTO) 1.2 X10^3/uL (1.3-2.9); LYMPHOCYTES % (AUTO) 4.7 % (21.0-51.0); MEAN CORPUSCULAR HEMOGLOBIN 25.5 pg (27.0-34.0); MEAN CORPUSCULAR HGB CONC 32.2 g/dL (33.0-35.0); MEAN CORPUSCULAR VOLUME 79.2 fL (80.0-100.0); MONOCYTES # (AUTO) 1.5 x10^3/uL (0.3-0.8); NEUTROPHILS % (AUTO) 87.6 % (42.0-75.0); PLATELET COUNT 192 X10^3/uL (150.0-450.0); RED BLOOD COUNT 2.79 X10^6/uL (3.5-5.4); RED CELL DISTRIBUTION WIDTH 19.1 % (11.6-16.5); WHITE BLOOD COUNT 25.1 X10^3/uL (3.6-10.0)
--- NOTE | 2020-10-19 06:34 | RAD ---
HISTORYDyspneaSTUDYCHEST, 1 VIEWCOMPARISONChest radiograph dated October 17, 2020.FINDINGSThe trachea is midline. There is an unchanged right-sided CVL whose tip overlies the right atrium. The right hemidiaphragm is elevated. The cardiac silhouette is enlarged. Right basilar atelectasis is noted. The lungs are otherwise clear without consolidation, effusion, or pneumothorax.No other cardiopulmonary changes are identified. The bones are grossly stable on this examination.IMPRESSIONElevated right hemidiaphragm with right basilar atelectasis. No other cardiopulmonary changes seen.Electronically signed by: JOVITA CASH III (Oct 19, 2020 06:32:23)
[2020-10-19 06:39] LABS: LACTIC ACID 4.1 mmol/L (0.4-2.0)
[2020-10-19 06:45] LABS: ALANINE AMINOTRANSFERASE 9 Units/L (12-78); ALBUMIN 2.5 g/dL (3.4-5.0); ALKALINE PHOSPHATASE 60 Units/L (46-116); ASPARTATE AMINO TRANSFERASE 15 Units/L (15-37); BLOOD UREA NITROGEN 20 mg/dL (7-18); CALCIUM 9.3 mg/dL (8.5-10.1); CARBON DIOXIDE 18.6 mmol/L (21-32); CHLORIDE 113 mmol/L (98-107); COR CA(FOR HYPOALB) 10.5 mg/dL (8.5-10.1); CREATININE 1.46 mg/dL (0.55-1.02); MAGNESIUM 2.4 mg/dL (1.7-2.9); SODIUM 144 mmol/L (136-145); TOTAL PROTEIN 5.4 g/dL (6.4-8.2); eGFR NON BLACK RACES 37 (>60)
[2020-10-19 06:48] LABS: BAND NEUTROPHILS % 3 % (0-10)
[2020-10-19 06:50] LABS: ANISOCYTOSIS SLIGHT; HYPOCHROMASIA SLIGHT; PLATELET MORPHOLOGY COMMENT NORMAL (NORMAL); TARGET CELLS SLIGHT
[2020-10-19] MEDS: ALBUMIN HUMAN 25%- 100 ML 100 ML IV SCH ×2 (09:48→20:53)
[2020-10-19] MEDS: PROCALAMINE 3 % 1,000 ML IV SCH (09:49)
[2020-10-19] MEDS: FORTAZ or TAZICEF VIAL INJ 1 G in NS 100 ML IV + SPIKE MINIBAG* 100 ML IV SCH ×2 (09:49→22:12)
[2020-10-19] MEDS: CIPRO IV 200 MG PREMIX* 200 MG/100 ML BAG IV SCH ×2 (09:49→21:07)
--- NOTE | 2020-10-19 11:24 | CT ---
ABDOMEN/PELVIS W/O CONHISTORY: FISTULAComparison:October 16, 2020Technique:Multiple non contrast axial images of the abdomen and pelvis were obtained from the lung bases to the pubic symphysis. Oral contrast was given . Dose reduction techniques including Automated Exposure Control (AEC) and adjustment of mA and kV were utlized.Findings:The sensitivity for focal lesion detection within the solid abdominal viscera is diminished without the use of IV contrast.The heart is normal in size. There is no pericardial effusion. Lung bases are clear without focal consolidation, pleural effusion or pneumothorax.Liver and spleen are normal in size, contour. No focal lesions. No ductal dilitation. Gallbladder is present. No calcified gallstones or gallbladder wall thickening. The pancreas is unremarkable. Adrenal glands are normal. Right kidney absent. Left-sided nephrostomy tube in place. No hydronephrosis or renal stones.Extensive postsurgical changes throughout the low abdomen pelvis without evidence of obstruction. [place] retroperitoneal lymph nodes are present. . No free fluid or fluid collections.Re-demonstrated throughout the pelvis is an irregular necrotic mass that has not changed significantly in size when compared to October 16, 2020 (3 days prior). This grossly measures 18 x 18 x 11 cm and contains regions of necrosis. There is again what appears to be a fistulous connection involving the anterior portion of this mass that is violated the peritoneum and the skin surface. This was demonstrated on recent CT. Components of the tumor extend inferiorly into the right vulvar region. Extensive inguinal and pelvic adenopathy is again present. Bladder appears to be completely decompressed by Merritt catheter. Uterus absent.No aggressive osseous lesions.IMPRESSION:1. No significant change in large necrotic pelvic mass as above.Electronically signed by: ERICA SYLVESTER (Oct 19, 2020 11:22:06)
[2020-10-19] MEDS ORDERED: BENADRYL INJ 50 MG VIAL IVP ONE (13:37)
[2020-10-19] MEDS ORDERED: TYLENOL 325 MG TAB PO ONE (13:37)
[2020-10-19] MEDS ORDERED: NS 500 ML IV 500 ML IV PRN (14:41)
[2020-10-19] MEDS: XOPENEX 1.25 MG/3 ML NEBULE NEB PRN (16:55)
--- NOTE | 2020-10-19 18:22 | DR.PROGNOT ---
Hospital Progress Notes - Progress Note for Day of: Progress Note Date: 10/19/20 - Chief Complaint Chief Complaint: no abdominal pain, no vomiting. tolerating diet .. abdominal wound is still drainig 490 cc in 24 h .more like urine today. WBC 25.1... K 3 ..Hgb 7.1 . Albumin 1.8. afebrile . - Past Medical Family Social History Past Med/Fam/Surg Hx: No changes since H&P Allergies: Allergies cephalexin [From Keflex] Allergy (Verified 09/19/18 14:30) Penicillins Allergy (Verified 09/19/18 14:30) - Review Of Systems ROS: No change since H&P - Vital Signs Vital Signs: Temperature 98.2 F Pulse Rate [Apical] 102 Pulse Rate 96 Respiratory Rate 20 Blood Pressure [Right Arm] 115/58 Blood Pressure [Left Arm] 98/53 Blood Pressure 87/50 O2 Sat by Pulse Oximetry 100 - Physical Exam Oriented: Normal Eyes: Normal Ear: Normal Nose: Normal Throat: Normal Respiratory: Generalized, Diminished Cardiovascular: Edema (BLE 1+ PITTING EDEMA ) : Other (NEOBLADDER RECONSTRUCTION. LOCKE IN PLACE. NEPHROSTOMY TUBE LEFT KIDNEY ) GI:Auscultation: Normal GI:Palpation: Normal GI: Tenderness: Normal Skin: Wound ( abdominal wound WITH moderate DRAINAGE ) Musculoskeletal: Normal Psychiatric: Normal Mood Description: Calm Affect: Normal Speech Pattern: Clear, Appropriate - Laboratory and Diagnostics Result Diagrams: 10/19/20 05:25 10/19/20 05:25 Labs: 10/15/20 15:30 Abdomen Wound Gram Stain - Final 10/15/20 15:30 Abdomen Wound Culture - Preliminary 10/15/20 16:50 Blood Blood Culture - Preliminary 10/15/20 16:50 Blood Blood Culture - Preliminary Laboratory WBC 25.1 X10^3/uL (3.6-10.0) H 10/19/20 05:25 RBC 2.79 X10^6/uL (3.5-5.4) L 10/19/20 05:25 Hgb 7.1 g/dL (12.0-16.0) L 10/19/20 05:25 Hct 22.1 % (36.0-47.0) L 10/19/20 05:25 MCV 79.2 fL (80.0-100.0) L 10/19/20 05:25 MCH 25.5 pg (27.0-34.0) L 10/19/20 05:25 MCHC 32.2 g/dL (33.0-35.0) L 10/19/20 05:25 RDW 19.1 % (11.6-16.5) H 10/19/20 05:25 Plt Count 192 X10^3/uL (150.0-450.0) 10/19/20 05:25 Plt Count Comment Adequate (ADEQUATE) 10/19/20 05:25 MPV 7.0 fL (7.4-11.0) L 10/19/20 05:25 Neut % (Auto) 87.6 % (42.0-75.0) H 10/19/20 05:25 Lymph % (Auto) 4.7 % (21.0-51.0) L 10/19/20 05:25 [place] % (Auto) 6.0 % (0.0-13.0) 10/19/20 05:25 Eos % (Auto) 1.4 % (0.9-2.9) 10/19/20 05:25 Baso % (Auto) 0.3 % (0.2-1.0) 10/19/20 05:25 Neut # (Auto) 22.0 x10^3/uL (2.2-4.8) H 10/19/20 05:25 Lymph # (Auto) 1.2 X10^3/uL (1.3-2.9) L 10/19/20 05:25 [place] # (Auto) 1.5 x10^3/uL (0.3-0.8) H 10/19/20 05:25 Eos # (Auto) 0.4 x10^3/uL (0.0-0.2) H 10/19/20 05:25 Baso # (Auto) 0.1 X10^3/uL (0.0-0.1) 10/19/20 05:25 Absolute Nucleated RBC 0.0 /100WBC 10/19/20 05:25 Total Counted 100 10/19/20 05:25 Neutrophils % (Manual) 85 % (39-76) H 10/19/20 05:25 Band Neutrophils % 3 % (0-10) 10/19/20 05:25 Lymphocytes % (Manual) 9 % (13-43) L 10/19/20 05:25 Monocytes % (Manual) 3 % (4-9) L 10/19/20 05:25 Eosinophils % (Manual) 1 % (0-6) 10/18/20 05:46 Plt Morphology Comment Normal (NORMAL) 10/19/20 05:25 RBC Morphology Abnormal (NORMAL) A 10/19/20 05:25 Hypochromasia Slight A 10/19/20 05:25 Anisocytosis Slight A 10/19/20 05:25 Microcytosis Slight A 10/16/20 04:17 Target Cells Slight A 10/19/20 05:25 Sodium 144 mmol/L (136-145) 10/19/20 05:25 Corrected Sodium TNP 10/19/20 05:25 Potassium 3.6 mmol/L (3.5-5.1) 10/19/20 05:25 Chloride 113 mmol/L (98-107) H 10/19/20 05:25 Carbon Dioxide 18.6 mmol/L (21-32) L 10/19/20 05:25 BUN 20 mg/dL (7-18) H 10/19/20 05:25 Creatinine 1.46 mg/dL (0.55-1.02) H 10/19/20 05:25 Est GFR (MDRD) Af Amer 45 (>60) L 10/19/20 05:25 Est GFR (MDRD) Non-Af 37 (>60) L 10/19/20 05:25 Glucose 89 mg/dL (65-99) 10/19/20 05:25 Lactic Acid 4.1 mmol/L (0.4-2.0) H 10/19/20 05:25 Calcium 9.3 mg/dL (8.5-10.1) 10/19/20 05:25 Corrected Calcium 10.5 mg/dL (8.5-10.1) H 10/19/20 05:25 Magnesium 2.4 mg/dL (1.7-2.9) 10/19/20 05:25 Total Bilirubin 0.50 mg/dL (0.2-1.0) 10/19/20 05:25 AST 15 Units/L (15-37) 10/19/20 05:25 ALT 9 Units/L (12-78) L 10/19/20 05:25 Alkaline Phosphatase 60 Units/L (46-116) 10/19/20 05:25 B-Natriuretic Peptide 838 pg/mL (0-79) H* 10/19/20 05:25 Total Protein 5.4 g/dL (6.4-8.2) L 10/19/20 05:25 Albumin 2.5 g/dL (3.4-5.0) L 10/19/20 05:25 Globulin 2.9 g/dL (2.5-4.5) 10/19/20 05:25 Albumin/Globulin Ratio 0.9 Ratio (1.1-2.1) L 10/19/20 05:25 SARS CoV-2 RNA Rapid ROSE Negative (NEGATIVE) 10/15/20 16:20 Blood Type B POSITIVE 10/19/20 11:20 Antibody Screen Negative 10/19/20 11:20 Crossmatch See Detail 10/19/20 11:20 - Assessment and Plan 1: open abdominal wall wound possible leak from the newly constructed bladder . anemia . recent surgery for bladder cancer . 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 hypokalemia and hypo albuminemia . on IV ATB ,nutritional support , PT to ambulate and local care of the fistula site .. to do modified cystogram looking for leak from the bladder - Problem Patient Problems: Patient Problems Abdominal wound dehiscence (Acute) T81.30XA Abdominal wall fistula (Acute) K63.2 Neutrophilic leukocytosis (Acute) D72.9 CKD (chronic kidney disease) stage 4, GFR 15-29 ml/min (Chronic) N18.4 Bladder cancer (Acute) C67.9 Hypochromic microcytic anemia (Acute) D50.9 Acute hypokalemia (Acute) E87.6 Sepsis (Acute) A41.9
[2020-10-19] MEDS: NORCO 5/325 MG TAB PO PRN (20:58)
[2020-10-19] MEDS: KLONOPIN TAB 1 MG PO SCH (20:58)
[2020-10-19] MEDS: LOVENOX INJ 30 MG SYR SC SCH (21:09)
[2020-10-19 21:27] LABS: HEMATOCRIT 27.8 % (36.0-47.0)
[2020-10-20] MEDS: MORPHINE SULFATE INJ 2 MG INJ IVP PRN ×5 (00:55→20:07)
[2020-10-20] MEDS: NS + KCL 20 MEQ/L 1,000 ML IV SCH ×5 (03:29→20:00)
[2020-10-20] MEDS: TESSALON PERLES PO SCH ×3 (05:12→22:40)
[2020-10-20] MEDS: XOPENEX 1.25 MG/3 ML NEBULE NEB PRN ×2 (05:55→12:05)
[2020-10-20] MEDS: NORCO 5/325 MG TAB PO PRN ×3 (05:56→19:00)
[2020-10-20 06:32] LABS: BASOPHILS % (AUTO) 0.1 % (0.2-1.0); EOSINOPHILS # (AUTO) 0.7 x10^3/uL (0.0-0.2); EOSINOPHILS % (AUTO) 2.9 % (0.9-2.9); HEMATOCRIT 25.8 % (36.0-47.0); HEMOGLOBIN 8.6 g/dL (12.0-16.0); LYMPHOCYTES % (AUTO) 4.7 % (21.0-51.0); MEAN CORPUSCULAR HGB CONC 33.4 g/dL (33.0-35.0); MEAN CORPUSCULAR VOLUME 80.9 fL (80.0-100.0); MONOCYTES # (AUTO) 1.5 x10^3/uL (0.3-0.8); MONOCYTES % (AUTO) 6.6 % (0.0-13.0); NEUTROPHILS # (AUTO) 19.3 x10^3/uL (2.2-4.8); NEUTROPHILS % (AUTO) 85.7 % (42.0-75.0); PLATELET COUNT 176 X10^3/uL (150.0-450.0); RED BLOOD COUNT 3.19 X10^6/uL (3.5-5.4); RED CELL DISTRIBUTION WIDTH 18.8 % (11.6-16.5); WHITE BLOOD COUNT 22.5 X10^3/uL (3.6-10.0)
[2020-10-20 06:42] LABS: LACTIC ACID 4.3 mmol/L (0.4-2.0)
[2020-10-20 06:51] LABS: ALANINE AMINOTRANSFERASE 8 Units/L (12-78); ALBUMIN 2.6 g/dL (3.4-5.0); ALKALINE PHOSPHATASE 44 Units/L (46-116); ASPARTATE AMINO TRANSFERASE 14 Units/L (15-37); BLOOD UREA NITROGEN 18 mg/dL (7-18); CALCIUM 10.4 mg/dL (8.5-10.1); CARBON DIOXIDE 17.1 mmol/L (21-32); CHLORIDE 114 mmol/L (98-107); COR CA(FOR HYPOALB) 11.5 mg/dL (8.5-10.1); CREATININE 1.37 mg/dL (0.55-1.02); SODIUM 145 mmol/L (136-145); TOTAL PROTEIN 5.5 g/dL (6.4-8.2); eGFR NON BLACK RACES 40 (>60)
[2020-10-20 07:10] LABS: BAND NEUTROPHILS % 3 % (0-10); PLATELET MORPHOLOGY COMMENT NORMAL (NORMAL)
--- NOTE | 2020-10-20 08:00 | RAD ---
HISTORYSOBSTUDYCHEST x-ray, 1 VIEWCOMPARISONX-ray 10/19/2020FINDINGSCentral venous catheter terminates in the region of the right atrium of the heart. Possible CHF changes. Likely mild linear atelectasis in the right middle lobe, unchanged. Vague density persists possible small pleural effusions. No pneumothorax is seen. At the left lung base, also.IMPRESSIONAppearance of the chest is very similar to prior study but heart size may have increased.Electronically signed by: Nick Johnson (Oct 20, 2020 07:57:47)
[2020-10-20] MEDS: FORTAZ or TAZICEF VIAL INJ 1 G in NS 100 ML IV + SPIKE MINIBAG* 100 ML IV SCH (08:27)
[2020-10-20] MEDS: ALBUMIN HUMAN 25%- 100 ML 100 ML IV SCH ×2 (08:29→20:38)
[2020-10-20] MEDS: VISTARIL PO PRN (08:31)
[2020-10-20] MEDS: CIPRO IV 200 MG PREMIX* 200 MG/100 ML BAG IV SCH ×2 (08:32→22:00)
[2020-10-20] MEDS: PROCALAMINE 3 % 1,000 ML IV SCH (08:41)
[2020-10-20] MEDS: NS IV SCH ×2 (14:04→23:00)
[2020-10-20] MEDS: MERREM IV SCH ×2 (14:04→23:00)
[2020-10-20] MEDS: SPIKE MINIBAG IV SCH ×2 (14:04→23:00)
--- NOTE | 2020-10-20 17:11 | RAD ---
KUBHISTORY: CHECKING FOR BLADDER LEAKAGE. IMAGES ARE POST INJECTIONStudy: 2 flat views of the abdomenComparison:NoneFindings:Contrast reportedly injected Merritt catheter fills the bladder lumen as well as demonstrating leakage into the left hemipelvis in irregular fashion likely along the course of patient's large necrotic left pelvic mass.IMPRESSION:1. As aboveElectronically signed by: ERICA SYLVESTER (Oct 20, 2020 17:07:58)
--- NOTE | 2020-10-20 18:00 | DR.PROGNOT ---
Hospital Progress Notes - Progress Note for Day of: Progress Note Date: 10/20/20 - Chief Complaint Chief Complaint: Pt is weak and tired .. modified cystogram showed bladder leak as expected . - Past Medical Family Social History Past Med/Fam/Surg Hx: No changes since H&P Allergies: Allergies cephalexin [From Keflex] Allergy (Verified 09/19/18 14:30) Penicillins Allergy (Verified 09/19/18 14:30) - Review Of Systems ROS: No change since H&P - Vital Signs Vital Signs: Temperature 97.7 F Pulse Rate [Apical] 91 Pulse Rate 96 Respiratory Rate 24 Blood Pressure [Right Arm] 107/56 Blood Pressure [Left Arm] 110/58 Blood Pressure 87/50 O2 Sat by Pulse Oximetry 99 - Physical Exam Oriented: Normal Eyes: Normal Ear: Normal Nose: Normal Throat: Normal Respiratory: Generalized, Diminished Cardiovascular: Edema (BLE 1+ PITTING EDEMA ) : Other (NEOBLADDER RECONSTRUCTION. LOCKE IN PLACE. NEPHROSTOMY TUBE LEFT KIDNEY ) GI:Auscultation: Normal GI:Palpation: Normal GI: Tenderness: Normal Skin: Wound ( abdominal wound WITH moderate DRAINAGE ) Musculoskeletal: Normal Psychiatric: Normal Mood Description: Calm Affect: Normal Speech Pattern: Clear, Appropriate - Laboratory and Diagnostics Result Diagrams: 10/20/20 05:30 10/20/20 05:30 Labs: 10/15/20 15:30 Abdomen Wound Gram Stain - Final 10/15/20 15:30 Abdomen Wound Culture - Preliminary 10/15/20 16:50 Blood Blood Culture - Preliminary 10/15/20 16:50 Blood Blood Culture - Preliminary Laboratory WBC 22.5 X10^3/uL (3.6-10.0) H 10/20/20 05:30 RBC 3.19 X10^6/uL (3.5-5.4) L 10/20/20 05:30 Hgb 8.6 g/dL (12.0-16.0) L 10/20/20 05:30 Hct 25.8 % (36.0-47.0) L 10/20/20 05:30 MCV 80.9 fL (80.0-100.0) 10/20/20 05:30 MCH 27.0 pg (27.0-34.0) 10/20/20 05:30 MCHC 33.4 g/dL (33.0-35.0) 10/20/20 05:30 RDW 18.8 % (11.6-16.5) H 10/20/20 05:30 Plt Count 176 X10^3/uL (150.0-450.0) 10/20/20 05:30 Plt Count Comment Adequate (ADEQUATE) 10/20/20 05:30 MPV 7.0 fL (7.4-11.0) L 10/20/20 05:30 Neut % (Auto) 85.7 % (42.0-75.0) H 10/20/20 05:30 Lymph % (Auto) 4.7 % (21.0-51.0) L 10/20/20 05:30 [place] % (Auto) 6.6 % (0.0-13.0) 10/20/20 05:30 Eos % (Auto) 2.9 % (0.9-2.9) 10/20/20 05:30 Baso % (Auto) 0.1 % (0.2-1.0) L 10/20/20 05:30 Neut # (Auto) 19.3 x10^3/uL (2.2-4.8) H 10/20/20 05:30 Lymph # (Auto) 1.0 X10^3/uL (1.3-2.9) L 10/20/20 05:30 [place] # (Auto) 1.5 x10^3/uL (0.3-0.8) H 10/20/20 05:30 Eos # (Auto) 0.7 x10^3/uL (0.0-0.2) H 10/20/20 05:30 Baso # (Auto) 0.0 X10^3/uL (0.0-0.1) 10/20/20 05:30 Absolute Nucleated RBC 0.0 /100WBC 10/20/20 05:30 Total Counted 100 10/20/20 05:30 Neutrophils % (Manual) 89 % (39-76) H 10/20/20 05:30 Band Neutrophils % 3 % (0-10) 10/20/20 05:30 Lymphocytes % (Manual) Not Reportable 10/20/20 05:30 Monocytes % (Manual) 4 % (4-9) 10/20/20 05:30 Eosinophils % (Manual) 4 % (0-6) 10/20/20 05:30 Plt Morphology Comment Normal (NORMAL) 10/20/20 05:30 RBC Morphology Normal (NORMAL) 10/20/20 05:30 Hypochromasia Slight A 10/19/20 05:25 Anisocytosis Slight A 10/19/20 05:25 Microcytosis Slight A 10/16/20 04:17 Target Cells Slight A 10/19/20 05:25 Sodium 145 mmol/L (136-145) 10/20/20 05:30 Corrected Sodium TNP 10/20/20 05:30 Potassium 4.0 mmol/L (3.5-5.1) 10/20/20 05:30 Chloride 114 mmol/L (98-107) H 10/20/20 05:30 Carbon Dioxide 17.1 mmol/L (21-32) L 10/20/20 05:30 BUN 18 mg/dL (7-18) 10/20/20 05:30 Creatinine 1.37 mg/dL (0.55-1.02) H 10/20/20 05:30 Est GFR (MDRD) Af Amer 48 (>60) L 10/20/20 05:30 Est GFR (MDRD) Non-Af 40 (>60) L 10/20/20 05:30 Glucose 74 mg/dL (65-99) 10/20/20 05:30 Lactic Acid 4.3 mmol/L (0.4-2.0) H 10/20/20 05:30 Calcium 10.4 mg/dL (8.5-10.1) H 10/20/20 05:30 Corrected Calcium 11.5 mg/dL (8.5-10.1) H 10/20/20 05:30 Magnesium 2.4 mg/dL (1.7-2.9) 10/19/20 05:25 Total Bilirubin 0.60 mg/dL (0.2-1.0) 10/20/20 05:30 AST 14 Units/L (15-37) L 10/20/20 05:30 ALT 8 Units/L (12-78) L 10/20/20 05:30 Alkaline Phosphatase 44 Units/L (46-116) L 10/20/20 05:30 B-Natriuretic Peptide 700 pg/mL (0-79) H* 10/20/20 05:30 Total Protein 5.5 g/dL (6.4-8.2) L 10/20/20 05:30 Albumin 2.6 g/dL (3.4-5.0) L 10/20/20 05:30 Globulin 2.9 g/dL (2.5-4.5) 10/20/20 05:30 Albumin/Globulin Ratio 0.9 Ratio (1.1-2.1) L 10/20/20 05:30 SARS CoV-2 RNA Rapid ROSE Negative (NEGATIVE) 10/15/20 16:20 Blood Type B POSITIVE 10/19/20 11:20 Antibody Screen Negative 10/19/20 11:20 Crossmatch See Detail 10/19/20 11:20 - Assessment and Plan 1: open abdominal wall wound with bladder leak from the newly constructed bladder . anemia . recent surgery for bladder cancer . 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 hypokalemia and hypo albuminemia . d/w family in details . Hospice care was d/w the family .. 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
--- NOTE | 2020-10-20 19:46 | PCM.PROG ---
Progress Note - Progress Note for Day of Date of Exam: 10/19/20 - Subjective Subjective: WAS ADMITTED FOR TREATMENT OF SEPSIS, ABDOMINAL WOUND DEHISCENCE, ABDOMINAL WALL FISTULA, LEUKOCYTOSIS, ANEMIA, HYPOKALEMIA, CHRONIC KIDNEY DISEASE. SHE HAS A HX BLADDER CANCER AND KIDNEY CANCER. RIGHT KIDNEY HAS BEEN REMOVED. BLADDER HAS ALSO BEEN REMOVED. 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 PATIENT CONTINUES WITH COMPLAINTS OF WEAKNESS, ABDOMINAL PAIN, LOWER EXTREMITY SWELLING, AND SHORTNESS OF BREATH. SHE REPORTS INCREASED FATIGUE WELL. ON EXAMINATION, HEART IS REGULAR IN RATE AND RHYTHM. BILATERAL LUNGS ARE NOTED WITH DIMINISHED LUNG SOUNDS THROUGHOUT. ABDOMEN IS ROUND, SOFT, AND NOTED TO HAVE HYPOACTIVE BOWEL SOUNDS THROUGHOUT. THERE IS AN OSTOMY BAG COVERING WOUND TO THE LEFT SIDE ABDOMEN TO COLLECT DRAINAGE. THERE CONTINUES TO BE PURULENT DRAINAGE IN BAG. LOCKE CATHETER NOTED TO BEDSIDE DRAINAGE. BLE ARE NOTED TO HAVE TRACE EDEMA. HER VITALS THIS MORNING ARE: 97.9-100-20-94% NC-89/53. LABS WERE OBTAINED. ABNORMAL LAB VALUES INCLUDE THE FOLLOWING: WBC 25.1, RBC 2.79, HGB 7.1, HCT 22.1, CHLORIDE 113, BUN 20, CREATININE 1.46, ALT 9, BNP 838, TOTAL PROTEIN 5.4, ALBUMIN 2.5. WOUND AND BLOOD CULTURES ARE PENDING. BIOPSIES THAT WERE OBTAINED IN [place] REVEALED S QUAMOUS CELL TYPE WITH POSITIVE METASTATIC CANCER. AN ABDOMEN/PELVIS CT WITHOUT CONTRAST WAS REPEATED THIS MORNING AND REVEALED: Re-demonstrated throughout the pelvis is an irregular necrotic mass that has not changed significantly in size when compared to October 16, 2020 (3 days prior). This grossly measures 18 x 18 x 11 cm and contains regions of necrosis. There is again what appears to be a fistul ous connection involving the anterior portion of this mass that is violated the peritoneum and the skin surface. This was demonstrated on recent CT. Components of the tumor extend inferiorly into the right vulvar region. Extensive inguinal and pelvic adenopathy is again present. Bladder appears to be completely decompressed by [place] catheter. Uterus absent. SHE IS CURRENTLY RECEIVING: NORMAL SALINE WITH 20MEQ KCL AT 110 ML/HR, PROCALAMINE AT 40 ML/HR, ALBUMIN 25% IV BID, CIPRO 200MG IV Q12H, FORTAZ 1G IV Q12H, VISTARIL 25MG PO Q8H PRN, TESSALON PERLES 200MG PO TID, LOVENOX 30MG SC HS, KLONOPIN 1MG PO HS, NORCO 5/325MG PO Q6H PRN. WE WILL CONTINUE WITH CURRENT PLAN OF CARE TODAY. WE WILL ALSO TRANSFUSE 1 UNIT OF PRBC. OTHERWISE, WE PLAN TO FOLLOW UP WITH AM LABS AND CONTINUE TO MONITOR. WILL CONTINUE TO FOLLOW PATIENT WELL. TIME SPENT ON CLINICAL ASSESSMENT, REVIEWING LABS AND IMAGING, DECISION MAKING, AND DOCUMENTATION GREATER THAN 45 MINUTES. - Past Medical Family Social History Past Med/Fam/Surg Hx: No changes since H&P Allergies: Allergies cephalexin [From Keflex] Allergy (Verified 09/19/18 14:30) Penicillins Allergy (Verified 09/19/18 14:30) - Review of Systems ROS: No change since H&P - Vital Signs and I&O's Vital Signs: Temperature 97.7 F Pulse Rate [Apical] 91 Pulse Rate 96 Respiratory Rate 24 Blood Pressure [Right Arm] 107/56 Blood Pressure [Left Arm] 110/58 Blood Pressure 87/50 O2 Sat by Pulse Oximetry 99 Intake and Output: Intake & Output 10/18/20 10/19/20 10/20/20 10/21/20 11:59 11:59 11:59 11:59 Intake Total 3113 / 3113 5583 / 5583 3025 / 3025 1290 / 1290 Output Total 1915 / 1915 1450 / 1450 2395 / 2395 1145 / 1145 Balance 1198 / 1198 4133 / 4133 630 / 630 145 / 145 - Physical Exam Oriented: Normal Eyes: Normal Ear: Normal Nose: Normal Throat: Normal Respiratory: Generalized, Diminished Cardiovascular: Edema (BLE TRACE EDEMA ) : Other (NEOBLADDER RECONSTRUCTION. LOCKE IN PLACE. NEPHROSTOMY TUBE LEFT KIDNEY ) Auscultation: Bowel Sounds: Normal Palpation: Normal Tenderness: Normal Skin: Wound ( abdominal wound WITH moderate DRAINAGE ) Musculoskeletal: Normal Psychiatric: Normal Mood Description: Calm Affect: Normal Speech Pattern: Clear, Appropriate - Laboratory and Diagnostics Result Diagrams: 10/20/20 05:30 10/20/20 05:30 Labs: 10/15/20 15:30 Abdomen Wound Gram Stain - Final 10/15/20 15:30 Abdomen Wound Culture - Preliminary 10/15/20 16:50 Blood Blood Culture - Preliminary 10/15/20 16:50 Blood Blood Culture - Preliminary Laboratory WBC 22.5 X10^3/uL (3.6-10.0) H 10/20/20 05:30 RBC 3.19 X10^6/uL (3.5-5.4) L 10/20/20 05:30 Hgb 8.6 g/dL (12.0-16.0) L 10/20/20 05:30 Hct 25.8 % (36.0-47.0) L 10/20/20 05:30 MCV 80.9 fL (80.0-100.0) 10/20/20 05:30 MCH 27.0 pg (27.0-34.0) 10/20/20 05:30 MCHC 33.4 g/dL (33.0-35.0) 10/20/20 05:30 RDW 18.8 % (11.6-16.5) H 10/20/20 05:30 Plt Count 176 X10^3/uL (150.0-450.0) 10/20/20 05:30 Plt Count Comment Adequate (ADEQUATE) 10/20/20 05:30 MPV 7.0 fL (7.4-11.0) L 10/20/20 05:30 Neut % (Auto) 85.7 % (42.0-75.0) H 10/20/20 05:30 Lymph % (Auto) 4.7 % (21.0-51.0) L 10/20/20 05:30 [place] % (Auto) 6.6 % (0.0-13.0) 10/20/20 05:30 Eos % (Auto) 2.9 % (0.9-2.9) 10/20/20 05:30 Baso % (Auto) 0.1 % (0.2-1.0) L 10/20/20 05:30 Neut # (Auto) 19.3 x10^3/uL (2.2-4.8) H 10/20/20 05:30 Lymph # (Auto) 1.0 X10^3/uL (1.3-2.9) L 10/20/20 05:30 [place] # (Auto) 1.5 x10^3/uL (0.3-0.8) H 10/20/20 05:30 Eos # (Auto) 0.7 x10^3/uL (0.0-0.2) H 10/20/20 05:30 Baso # (Auto) 0.0 X10^3/uL (0.0-0.1) 10/20/20 05:30 Absolute Nucleated RBC 0.0 /100WBC 10/20/20 05:30 Total Counted 100 10/20/20 05:30 Neutrophils % (Manual) 89 % (39-76) H 10/20/20 05:30 Band Neutrophils % 3 % (0-10) 10/20/20 05:30 Lymphocytes % (Manual) Not Reportable 10/20/20 05:30 Monocytes % (Manual) 4 % (4-9) 10/20/20 05:30 Eosinophils % (Manual) 4 % (0-6) 10/20/20 05:30 Plt Morphology Comment Normal (NORMAL) 10/20/20 05:30 RBC Morphology Normal (NORMAL) 10/20/20 05:30 Hypochromasia Slight A 10/19/20 05:25 Anisocytosis Slight A 10/19/20 05:25 Microcytosis Slight A 10/16/20 04:17 Target Cells Slight A 10/19/20 05:25 Sodium 145 mmol/L (136-145) 10/20/20 05:30 Corrected Sodium TNP 10/20/20 05:30 Potassium 4.0 mmol/L (3.5-5.1) 10/20/20 05:30 Chloride 114 mmol/L (98-107) H 10/20/20 05:30 Carbon Dioxide 17.1 mmol/L (21-32) L 10/20/20 05:30 BUN 18 mg/dL (7-18) 10/20/20 05:30 Creatinine 1.37 mg/dL (0.55-1.02) H 10/20/20 05:30 Est GFR (MDRD) Af Amer 48 (>60) L 10/20/20 05:30 Est GFR (MDRD) Non-Af 40 (>60) L 10/20/20 05:30 Glucose 74 mg/dL (65-99) 10/20/20 05:30 Lactic Acid 4.3 mmol/L (0.4-2.0) H 10/20/20 05:30 Calcium 10.4 mg/dL (8.5-10.1) H 10/20/20 05:30 Corrected Calcium 11.5 mg/dL (8.5-10.1) H 10/20/20 05:30 Magnesium 2.4 mg/dL (1.7-2.9) 10/19/20 05:25 Total Bilirubin 0.60 mg/dL (0.2-1.0) 10/20/20 05:30 AST 14 Units/L (15-37) L 10/20/20 05:30 ALT 8 Units/L (12-78) L 10/20/20 05:30 Alkaline Phosphatase 44 Units/L (46-116) L 10/20/20 05:30 B-Natriuretic Peptide 700 pg/mL (0-79) H* 10/20/20 05:30 Total Protein 5.5 g/dL (6.4-8.2) L 10/20/20 05:30 Albumin 2.6 g/dL (3.4-5.0) L 10/20/20 05:30 Globulin 2.9 g/dL (2.5-4.5) 10/20/20 05:30 Albumin/Globulin Ratio 0.9 Ratio (1.1-2.1) L 10/20/20 05:30 SARS CoV-2 RNA Rapid ROSE Negative (NEGATIVE) 10/15/20 16:20 Blood Type B POSITIVE 10/19/20 11:20 Antibody Screen Negative 10/19/20 11:20 Crossmatch See Detail 10/19/20 11:20 - Plan (1) Sepsis Status: Acute Qualifiers: Sepsis type: sepsis due to unspecified organism Sepsis acute organ dysfunction status: unspecified Qualified Code(s): A41.9 - Sepsis, unspecified organism Plan: NORMAL SALINE AT 110 ML/HR, PROCALAMINE AT 40 ML/HR, ALBUMIN 25% IV BID, CIPRO 200MG IV Q12H, FORTAZ 1G IV Q12H, KLONOPIN 1MG PO HS, NORCO 5/325MG PO Q6H PRN, VISTARIL 25MG PO Q8H, AND TESSALON PERLES 200MG PO TID (2) Abdominal wound dehiscence Status: Acute Qualifiers: Encounter type: initial encounter Qualified Code(s): T81.30XA - Disruption of wound, unspecified, initial encounter (3) Abdominal wall fistula Status: Acute (4) Neutrophilic leukocytosis Status: Acute (5) Bladder cancer Status: Acute Qualifiers: Bladder location: unspecified site Qualified Code(s): C67.9 - Malignant neoplasm of bladder, unspecified (6) Hypochromic microcytic anemia Status: Acute (7) Acute hypokalemia Status: Acute (8) CKD (chronic kidney disease) stage 4, GFR 15-29 ml/min Status: Chronic
--- NOTE | 2020-10-20 19:58 | PCM.PROG ---
Progress Note - Progress Note for Day of Date of Exam: 10/20/20 - Subjective Subjective: WAS ADMITTED FOR TREATMENT OF SEPSIS, ABDOMINAL WOUND DEHISCENCE, ABDOMINAL WALL FISTULA, LEUKOCYTOSIS, ANEMIA, HYPOKALEMIA, CHRONIC KIDNEY DISEASE. SHE HAS HAD A TOTAL OF 3 UNITS OF PRBC SINCE ADMISSION. SHE HAS A HX BLADDER CANCER AND KIDNEY CANCER. RIGHT KIDNEY HAS BEEN REMOVED. BLADDER HAS ALSO BEEN REMOVED. 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 PATIENT CONTINUES WITH COMPLAINTS OF WEAKNESS, FATIGUE, MILD ABDOMINAL PAIN, LOWER EXTREMITY SWELLING, AND SHORTNESS OF BREATH. ON EXAMINATION, HEART IS REGULAR IN RATE AND RHYTHM. BILATERAL LUNGS ARE NOTED WITH DIMINISHED LUNG SOUNDS THROUGHOUT. ABDOMEN IS ROUND, SOFT, AND NOTED TO HAVE HYPOACTIVE BOWEL SOUNDS THROUGHOUT. THERE IS AN OSTOMY BAG COVERING WOUND TO THE LEFT SIDE ABDOMEN TO COLLECT DRAINAGE. THERE CONTINUES TO BE PURULENT DRAINAGE IN BAG. LOCKE CATHETER NOTED TO BEDSIDE DRAINAGE WITH MINIMAL OUTPUT. BLE ARE NOTED TO HAVE TRACE EDEMA. HER VITALS THIS MORNING ARE: 97.1-855-97-100% NC-105/51. LABS WERE OBTAINED. ABNORMAL LAB VALUES INCLUDE THE FOLLOWING: WBC 22.5, RBC 3.19, HGB 8.6, HCT 25.8, CHLORIDE 114, CARBON DIOXIDE 17.1, CREATININE 1.37, LACTIC ACID 4.3, AST 14, ALT 8, ALK PHOS 44, BNP 700, TOTAL PROTEIN 5.5, ALBUMIN 2.6. WOUND AND BLOOD CULTURES ARE PENDING. BIOPSIES THAT WERE OBTAINED IN [place] REVEALED SQUAMOUS CELL TYPE WITH POSITIVE METASTATIC CANCER. A CHEST XRAY WAS OBTAINE THIS MORNING AND REVEALED: Central venous catheter terminates in the region of the right atrium of the heart. Possible CHF changes. Likely mild linear atelectasis in the right middle lobe, unchanged. Vague density persists possible small pleural effusions. No pneumothorax is seen. At the left lung base, also. SHE IS CURRENTLY RECEIVING: NORMAL SALINE WITH 20MEQ KCL AT 110 ML/HR, PROCALAMINE AT 40 ML/HR, ALBUMIN 25% IV BID, CIPRO 200MG IV Q12H, FORTAZ 1G IV Q12H, VISTARIL 25MG PO Q8H PRN, TESSALON PERLES 200MG PO TID, LOVENOX 30MG SC HS, KLONOPIN 1MG PO HS, NORCO 5/325MG PO Q6H PRN. TODAY, WE WILL DISCONTINUE THE FORTAZ AND ADD MEROPENEM. OTHERWISE, WE PLAN TO FOLLOW UP WITH AM LABS AND CONTINUE TO MONITOR. WILL CONTINUE TO FOLLOW PATIENT WELL. TIME SPENT ON CLINICAL ASSESSMENT, REVIEWING LABS AND IMAGING, DECISION MAKING, AND DOCUMENTATION GREATER THAN 45 MINUTES. - Past Medical Family Social History Past Med/Fam/Surg Hx: No changes since H&P Allergies: Allergies cephalexin [From Keflex] Allergy (Verified 09/19/18 14:30) Penicillins Allergy (Verified 09/19/18 14:30) - Review of Systems ROS: No change since H&P - Vital Signs and I&O's Vital Signs: Temperature 97.7 F Pulse Rate [Apical] 91 Pulse Rate 96 Respiratory Rate 20 Blood Pressure [Right Arm] 107/56 Blood Pressure [Left Arm] 110/58 Blood Pressure 87/50 O2 Sat by Pulse Oximetry 99 Intake and Output: Intake & Output 10/18/20 10/19/20 10/20/20 10/21/20 11:59 11:59 11:59 11:59 Intake Total 3113 / 3113 5583 / 5583 3025 / 3025 1290 / 1290 Output Total 1915 / 1915 1450 / 1450 2395 / 2395 1145 / 1145 Balance 1198 / 1198 4133 / 4133 630 / 630 145 / 145 - Physical Exam Oriented: Normal Eyes: Normal Ear: Normal Nose: Normal Throat: Normal Respiratory: Generalized, Diminished Cardiovascular: Edema (BLE TRACE EDEMA ) : Other (NEOBLADDER RECONSTRUCTION. LOCKE IN PLACE. NEPHROSTOMY TUBE LEFT KIDNEY ) Auscultation: Bowel Sounds: Normal Tenderness: Normal Skin: Wound ( abdominal wound WITH moderate DRAINAGE ) Musculoskeletal: Normal Psychiatric: Normal Mood Description: Calm Affect: Normal Speech Pattern: Clear, Appropriate - Laboratory and Diagnostics Result Diagrams: 10/20/20 05:30 10/20/20 05:30 Labs: 10/15/20 15:30 Abdomen Wound Gram Stain - Final 10/15/20 15:30 Abdomen Wound Culture - Preliminary 10/15/20 16:50 Blood Blood Culture - Preliminary 10/15/20 16:50 Blood Blood Culture - Preliminary Laboratory WBC 22.5 X10^3/uL (3.6-10.0) H 10/20/20 05:30 RBC 3.19 X10^6/uL (3.5-5.4) L 10/20/20 05:30 Hgb 8.6 g/dL (12.0-16.0) L 10/20/20 05:30 Hct 25.8 % (36.0-47.0) L 10/20/20 05:30 MCV 80.9 fL (80.0-100.0) 10/20/20 05:30 MCH 27.0 pg (27.0-34.0) 10/20/20 05:30 MCHC 33.4 g/dL (33.0-35.0) 10/20/20 05:30 RDW 18.8 % (11.6-16.5) H 10/20/20 05:30 Plt Count 176 X10^3/uL (150.0-450.0) 10/20/20 05:30 Plt Count Comment Adequate (ADEQUATE) 10/20/20 05:30 MPV 7.0 fL (7.4-11.0) L 10/20/20 05:30 Neut % (Auto) 85.7 % (42.0-75.0) H 10/20/20 05:30 Lymph % (Auto) 4.7 % (21.0-51.0) L 10/20/20 05:30 [place] % (Auto) 6.6 % (0.0-13.0) 10/20/20 05:30 Eos % (Auto) 2.9 % (0.9-2.9) 10/20/20 05:30 Baso % (Auto) 0.1 % (0.2-1.0) L 10/20/20 05:30 Neut # (Auto) 19.3 x10^3/uL (2.2-4.8) H 10/20/20 05:30 Lymph # (Auto) 1.0 X10^3/uL (1.3-2.9) L 10/20/20 05:30 [place] # (Auto) 1.5 x10^3/uL (0.3-0.8) H 10/20/20 05:30 Eos # (Auto) 0.7 x10^3/uL (0.0-0.2) H 10/20/20 05:30 Baso # (Auto) 0.0 X10^3/uL (0.0-0.1) 10/20/20 05:30 Absolute Nucleated RBC 0.0 /100WBC 10/20/20 05:30 Total Counted 100 10/20/20 05:30 Neutrophils % (Manual) 89 % (39-76) H 10/20/20 05:30 Band Neutrophils % 3 % (0-10) 10/20/20 05:30 Lymphocytes % (Manual) Not Reportable 10/20/20 05:30 Monocytes % (Manual) 4 % (4-9) 10/20/20 05:30 Eosinophils % (Manual) 4 % (0-6) 10/20/20 05:30 Plt Morphology Comment Normal (NORMAL) 10/20/20 05:30 RBC Morphology Normal (NORMAL) 10/20/20 05:30 Hypochromasia Slight A 10/19/20 05:25 Anisocytosis Slight A 10/19/20 05:25 Microcytosis Slight A 10/16/20 04:17 Target Cells Slight A 10/19/20 05:25 Sodium 145 mmol/L (136-145) 10/20/20 05:30 Corrected Sodium TNP 10/20/20 05:30 Potassium 4.0 mmol/L (3.5-5.1) 10/20/20 05:30 Chloride 114 mmol/L (98-107) H 10/20/20 05:30 Carbon Dioxide 17.1 mmol/L (21-32) L 10/20/20 05:30 BUN 18 mg/dL (7-18) 10/20/20 05:30 Creatinine 1.37 mg/dL (0.55-1.02) H 10/20/20 05:30 Est GFR (MDRD) Af Amer 48 (>60) L 10/20/20 05:30 Est GFR (MDRD) Non-Af 40 (>60) L 10/20/20 05:30 Glucose 74 mg/dL (65-99) 10/20/20 05:30 Lactic Acid 4.3 mmol/L (0.4-2.0) H 10/20/20 05:30 Calcium 10.4 mg/dL (8.5-10.1) H 10/20/20 05:30 Corrected Calcium 11.5 mg/dL (8.5-10.1) H 10/20/20 05:30 Magnesium 2.4 mg/dL (1.7-2.9) 10/19/20 05:25 Total Bilirubin 0.60 mg/dL (0.2-1.0) 10/20/20 05:30 AST 14 Units/L (15-37) L 10/20/20 05:30 ALT 8 Units/L (12-78) L 10/20/20 05:30 Alkaline Phosphatase 44 Units/L (46-116) L 10/20/20 05:30 B-Natriuretic Peptide 700 pg/mL (0-79) H* 10/20/20 05:30 Total Protein 5.5 g/dL (6.4-8.2) L 10/20/20 05:30 Albumin 2.6 g/dL (3.4-5.0) L 10/20/20 05:30 Globulin 2.9 g/dL (2.5-4.5) 10/20/20 05:30 Albumin/Globulin Ratio 0.9 Ratio (1.1-2.1) L 10/20/20 05:30 SARS CoV-2 RNA Rapid ROSE Negative (NEGATIVE) 10/15/20 16:20 Blood Type B POSITIVE 10/19/20 11:20 Antibody Screen Negative 10/19/20 11:20 Crossmatch See Detail 10/19/20 11:20 - Plan (1) Sepsis Status: Acute Qualifiers: Sepsis type: sepsis due to unspecified organism Sepsis acute organ dysfunction status: unspecified Qualified Code(s): A41.9 - Sepsis, unspecified organism Plan: NORMAL SALINE AT 110 ML/HR, PROCALAMINE AT 40 ML/HR, ALBUMIN 25% IV BID, CIPRO 200MG IV Q12H, MEROPENEM, KLONOPIN 1MG PO HS, NORCO 5/325MG PO Q6H PRN, VISTARIL 25MG PO Q8H, AND TESSALON PERLES 200MG PO TID (2) Abdominal wound dehiscence Status: Acute Qualifiers: Encounter type: initial encounter Qualified Code(s): T81.30XA - Disruption of wound, unspecified, initial encounter (3) Abdominal wall fistula Status: Acute (4) Neutrophilic leukocytosis Status: Acute (5) Bladder cancer Status: Acute Qualifiers: Bladder location: unspecified site Qualified Code(s): C67.9 - Malignant neoplasm of bladder, unspecified (6) Hypochromic microcytic anemia Status: Acute (7) Acute hypokalemia Status: Acute (8) CKD (chronic kidney disease) stage 4, GFR 15-29 ml/min Status: Chronic
[2020-10-20] MEDS: KLONOPIN TAB 1 MG PO SCH (20:37)
[2020-10-20] MEDS: LOVENOX INJ 30 MG SYR SC SCH (20:41)
[2020-10-21] MEDS: MORPHINE SULFATE INJ 2 MG INJ IVP PRN ×4 (03:33→19:57)
[2020-10-21] MEDS: NS + KCL 20 MEQ/L 1,000 ML IV SCH ×4 (03:40→19:28)
[2020-10-21] MEDS: NORCO 5/325 MG TAB PO PRN ×3 (04:05→21:00)
[2020-10-21] MEDS: NS IV SCH ×3 (05:08→23:09)
[2020-10-21] MEDS: SPIKE MINIBAG IV SCH ×3 (05:08→23:09)
[2020-10-21] MEDS: MERREM IV SCH ×3 (05:08→23:09)
[2020-10-21] MEDS: XOPENEX 1.25 MG/3 ML NEBULE NEB PRN ×2 (05:32→11:56)
[2020-10-21] MEDS: TESSALON PERLES PO SCH ×3 (05:40→21:12)
[2020-10-21 06:37] LABS: BASOPHILS % (AUTO) 0.2 % (0.2-1.0); EOSINOPHILS # (AUTO) 0.7 x10^3/uL (0.0-0.2); EOSINOPHILS % (AUTO) 3.4 % (0.9-2.9); HEMOGLOBIN 10.2 g/dL (12.0-16.0); LYMPHOCYTES # (AUTO) 1.1 X10^3/uL (1.3-2.9); LYMPHOCYTES % (AUTO) 5.2 % (21.0-51.0); MEAN CORPUSCULAR HEMOGLOBIN 26.6 pg (27.0-34.0); MEAN CORPUSCULAR HGB CONC 32.9 g/dL (33.0-35.0); MEAN CORPUSCULAR VOLUME 80.8 fL (80.0-100.0); MEAN PLATELET VOLUME 7.1 fL (7.4-11.0); MONOCYTES # (AUTO) 1.7 x10^3/uL (0.3-0.8); MONOCYTES % (AUTO) 8.1 % (0.0-13.0); NEUTROPHILS # (AUTO) 17.6 x10^3/uL (2.2-4.8); NEUTROPHILS % (AUTO) 83.1 % (42.0-75.0); PLATELET COUNT 200 X10^3/uL (150.0-450.0); RED BLOOD COUNT 3.84 X10^6/uL (3.5-5.4); RED CELL DISTRIBUTION WIDTH 19.4 % (11.6-16.5); WHITE BLOOD COUNT 21.2 X10^3/uL (3.6-10.0)
--- NOTE | 2020-10-21 07:10 | RAD ---
HISTORYShortness of breathSTUDYChest AP [id number]/12/2021FINDINGSThere is a right-sided central line in place. Heart is within nor mal limits in size. No congestive heart failure is noted. The lungs are hypoinflated. No acute infilt rates are identified. There is subsegmental atelectasis in the right lung base. The right hemidiaphra gm is elevated.IMPRESSIONLungs hypoinflated but free of acute infiltratesSubsegmental atelectasis rig ht lung baseElevated right hemidiaphragmElectronically signed by: NENA FUENTES (Oct 21, 2020 07:08:1 8)
[2020-10-21 07:22] LABS: ALANINE AMINOTRANSFERASE 11 Units/L (12-78); ALKALINE PHOSPHATASE 74 Units/L (46-116); ASPARTATE AMINO TRANSFERASE 24 Units/L (15-37); BLOOD UREA NITROGEN 17 mg/dL (7-18); CALCIUM 12.4 mg/dL (8.5-10.1); CARBON DIOXIDE 15.8 mmol/L (21-32); CHLORIDE 113 mmol/L (98-107); COR CA(FOR HYPOALB) 13.2 mg/dL (8.5-10.1); CREATININE 1.37 mg/dL (0.55-1.02); SODIUM 144 mmol/L (136-145); TOTAL PROTEIN 6.2 g/dL (6.4-8.2); eGFR NON BLACK RACES 40 (>60)
[2020-10-21 07:50] LABS: BAND NEUTROPHILS % 5 % (0-10)
[2020-10-21 07:51] LABS: HYPOCHROMASIA SLIGHT; MICROCYTOSIS SLIGHT; PLATELET MORPHOLOGY COMMENT NORMAL (NORMAL)
[2020-10-21] MEDS: CIPRO IV 200 MG PREMIX* 200 MG/100 ML BAG IV SCH ×2 (08:22→22:00)
[2020-10-21] MEDS: ALBUMIN HUMAN 25%- 100 ML 100 ML IV SCH ×2 (10:51→21:11)
[2020-10-21] MEDS ORDERED: HumuLIN R SUBCUT PRN (11:16)
[2020-10-21] MEDS ORDERED: DEXTROSE 10% 1,000 ML IV PRN (11:16)
--- NOTE | 2020-10-21 11:16 | PCM.PROG ---
Progress Note - Progress Note for Day of Date of Exam: 10/21/20 - Subjective Subjective: WAS ADMITTED FOR TREATMENT OF SEPSIS, ABDOMINAL WOUND DEHISCENCE, ABDOMINAL WALL FISTULA, LEUKOCYTOSIS, ANEMIA, HYPOKALEMIA, CHRONIC KIDNEY DISEASE. SHE HAS HAD A TOTAL OF 3 UNITS OF PRBC SINCE ADMISSION. SHE HAS A HX BLADDER CANCER AND KIDNEY CANCER. RIGHT KIDNEY HAS BEEN REMOVED. BLADDER HAS ALSO BEEN REMOVED. 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 PERFORMED A CYSTOGRAM AT BEDSIDE AND LEAKAGE OF FLUID INTO ABDOMEN WAS NOTED. PATIENT CONTINUES WITH COMPLAINTS OF WEAKNESS, FATIGUE, MILD ABDOMINAL PAIN, LOWER EXTREMITY SWELLING, AND SHORTNESS OF BREATH. ON EXAMINATION, HEART IS REGULAR IN RATE AND RHYTHM. BILATERAL LUNGS ARE NOTED WITH DIMINISHED LUNG SOUNDS THROUGHOUT. ABDOMEN IS ROUND, SOFT, AND NOTED TO HAVE HYPOACTIVE BOWEL SOUNDS THROUGHOUT. THERE IS AN OSTOMY BAG COVERING WOUND TO THE LEFT SIDE ABDOMEN TO COLLECT DRAINAGE. THERE CONTINUES TO BE PURULENT DRAINAGE I N BAG. LOCKE CATHETER NOTED TO BEDSIDE DRAINAGE WITH MINIMAL OUTPUT. BLE 2+ EDEMA NOTED. HER VITALS THIS MORNING ARE: 98.6-100-21-98%-136/65. LABS WERE OBTAINED. ABNORMAL LAB VALUES INCLUDE THE FOLLOWING: WBC 21.2, HGB 10.2, HCT 31.0, CHLORIDE 113, CARBON DIOXIDE 15.8, CREATININE 1.37, CALCIUM 12.4, TOTAL BILI 1.10, ALT 11, BNP 650, TOTAL PROTEIN 6.2, ALBUMIN 3.0. WOUND AND BLOOD CULTURES ARE PENDING. 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 A CHEST XRAY WAS OBTAINE THIS MORNING AND REVEALED: Lungs hypoinflated but free of acute infiltrates. Subsegmental atelectasis right lung base. Elevated right hemidiaphragm. SHE IS CURRENTLY RECEIVING: NORMAL SALINE WITH 20MEQ KCL AT 110 ML/HR, PROCALAMINE AT 40 ML/HR, ALBUMIN 25% IV BID, CIPRO 200MG IV Q12H, MEROPENEM, VISTARIL 25MG PO Q8H PRN, TESSALON PERLES 200MG PO TID, LOVENOX 30MG SC HS, KLONOPIN 1MG PO HS, NORCO 5/325MG PO Q6H PRN. WE WILL CONTINUE WITH CURRENT PLAN OF CARE TODAY. HAS DISCUSSED HOSPICE CARE WITH FAMILY AND PATINET. THEY WILL DISCUSS WITH THEIR OTHER FAMILY MEMEBERS. OTHERWISE, WE PLAN TO FOLLOW UP WITH AM LABS AND CONTINUE TO MONITOR. TIME SPENT ON CLINICAL ASSESSMENT, REVIEWING LABS AND IMAGING, DECISION MAKING, AND DOCUMENTATION GREATER THAN 45 MINUTES. - Past Medical Family Social History Past Med/Fam/Surg Hx: No changes since H&P Allergies: Allergies cephalexin [From Keflex] Allergy (Verified 09/19/18 14:30) Penicillins Allergy (Verified 09/19/18 14:30) - Review of Systems ROS: No change since H&P - Vital Signs and I&O's Vital Signs: Temperature 98.6 F Pulse Rate [Apical] 125 Pulse Rate 100 Respiratory Rate 18 Blood Pressure [Right Arm] 136/65 Blood Pressure [Left Arm] 110/58 Blood Pressure 87/50 O2 Sat by Pulse Oximetry 98 Intake and Output: Intake & Output 10/18/20 10/19/20 10/20/20 10/21/20 11:59 11:59 11:59 11:59 Intake Total 3113 / 3113 5583 / 5583 3025 / 3025 3990 / 3990 Output Total 1915 / 1915 1450 / 1450 2395 / 2395 2845 / 2845 Balance 1198 / 1198 4133 / 4133 630 / 630 1145 / 1145 - Physical Exam Oriented: Normal Eyes: Normal Ear: Normal Nose: Normal Throat: Normal Respiratory: Generalized, Diminished Cardiovascular: Edema (BLE TRACE EDEMA ) : Other (NEOBLADDER RECONSTRUCTION. LOCKE IN PLACE. NEPHROSTOMY TUBE LEFT KIDNEY ) Auscultation: Bowel Sounds: Normal Tenderness: Normal Skin: Wound ( abdominal wound WITH moderate DRAINAGE ) Musculoskeletal: Normal Psychiatric: Normal Mood Description: Calm Affect: Normal Speech Pattern: Appropriate, Unclear, Delayed - Laboratory and Diagnostics Result Diagrams: 10/21/20 05:40 10/21/20 05:40 Labs: 10/15/20 15:30 Abdomen Wound Gram Stain - Final 10/15/20 15:30 Abdomen Wound Culture - Preliminary 10/15/20 16:50 Blood Blood Culture - Preliminary 10/15/20 16:50 Blood Blood Culture - Preliminary Laboratory WBC 21.2 X10^3/uL (3.6-10.0) H 10/21/20 05:40 RBC 3.84 X10^6/uL (3.5-5.4) 10/21/20 05:40 Hgb 10.2 g/dL (12.0-16.0) L 10/21/20 05:40 Hct 31.0 % (36.0-47.0) L 10/21/20 05:40 MCV 80.8 fL (80.0-100.0) 10/21/20 05:40 MCH 26.6 pg (27.0-34.0) L 10/21/20 05:40 MCHC 32.9 g/dL (33.0-35.0) L 10/21/20 05:40 RDW 19.4 % (11.6-16.5) H 10/21/20 05:40 Plt Count 200 X10^3/uL (150.0-450.0) 10/21/20 05:40 Plt Count Comment Adequate (ADEQUATE) 10/21/20 05:40 MPV 7.1 fL (7.4-11.0) L 10/21/20 05:40 Neut % (Auto) 83.1 % (42.0-75.0) H 10/21/20 05:40 Lymph % (Auto) 5.2 % (21.0-51.0) L 10/21/20 05:40 [place] % (Auto) 8.1 % (0.0-13.0) 10/21/20 05:40 Eos % (Auto) 3.4 % (0.9-2.9) H 10/21/20 05:40 Baso % (Auto) 0.2 % (0.2-1.0) 10/21/20 05:40 Neut # (Auto) 17.6 x10^3/uL (2.2-4.8) H 10/21/20 05:40 Lymph # (Auto) 1.1 X10^3/uL (1.3-2.9) L 10/21/20 05:40 [place] # (Auto) 1.7 x10^3/uL (0.3-0.8) H 10/21/20 05:40 Eos # (Auto) 0.7 x10^3/uL (0.0-0.2) H 10/21/20 05:40 Baso # (Auto) 0.0 X10^3/uL (0.0-0.1) 10/21/20 05:40 Absolute Nucleated RBC 0.0 /100WBC 10/21/20 05:40 Total Counted 100 10/21/20 05:40 Neutrophils % (Manual) 84 % (39-76) H 10/21/20 05:40 Band Neutrophils % 5 % (0-10) 10/21/20 05:40 Lymphocytes % (Manual) 4 % (13-43) L 10/21/20 05:40 Monocytes % (Manual) 6 % (4-9) 10/21/20 05:40 Eosinophils % (Manual) 1 % (0-6) 10/21/20 05:40 Plt Morphology Comment Normal (NORMAL) 10/21/20 05:40 RBC Morphology Abnormal (NORMAL) A 10/21/20 05:40 Hypochromasia Slight A 10/21/20 05:40 Anisocytosis Slight A 10/19/20 05:25 Microcytosis Slight A 10/21/20 05:40 Target Cells Slight A 10/19/20 05:25 Sodium 144 mmol/L (136-145) 10/21/20 05:40 Corrected Sodium TNP 10/21/20 05:40 Potassium 4.6 mmol/L (3.5-5.1) 10/21/20 05:40 Chloride 113 mmol/L (98-107) H 10/21/20 05:40 Carbon Dioxide 15.8 mmol/L (21-32) L 10/21/20 05:40 BUN 17 mg/dL (7-18) 10/21/20 05:40 Creatinine 1.37 mg/dL (0.55-1.02) H 10/21/20 05:40 Est GFR (MDRD) Af Amer 48 (>60) L 10/21/20 05:40 Est GFR (MDRD) Non-Af 40 (>60) L 10/21/20 05:40 Glucose 81 mg/dL (65-99) 10/21/20 05:40 Lactic Acid 4.3 mmol/L (0.4-2.0) H 10/20/20 05:30 Calcium 12.4 mg/dL (8.5-10.1) H 10/21/20 05:40 Corrected Calcium 13.2 mg/dL (8.5-10.1) H 10/21/20 05:40 Magnesium 2.4 mg/dL (1.7-2.9) 10/19/20 05:25 Total Bilirubin 1.10 mg/dL (0.2-1.0) H 10/21/20 05:40 AST 24 Units/L (15-37) 10/21/20 05:40 ALT 11 Units/L (12-78) L 10/21/20 05:40 Alkaline Phosphatase 74 Units/L (46-116) 10/21/20 05:40 B-Natriuretic Peptide 650 pg/mL (0-79) H* 10/21/20 05:40 Total Protein 6.2 g/dL (6.4-8.2) L 10/21/20 05:40 Albumin 3.0 g/dL (3.4-5.0) L 10/21/20 05:40 Globulin 3.2 g/dL (2.5-4.5) 10/21/20 05:40 Albumin/Globulin Ratio 0.9 Ratio (1.1-2.1) L 10/21/20 05:40 SARS CoV-2 RNA Rapid ROSE Negative (NEGATIVE) 10/15/20 16:20 Blood Type B POSITIVE 10/19/20 11:20 Antibody Screen Negative 10/19/20 11:20 Crossmatch See Detail 10/19/20 11:20 - Plan (1) Sepsis Status: Acute Qualifiers: Sepsis type: sepsis due to unspecified organism Sepsis acute organ dysfunction status: unspecified Qualified Code(s): A41.9 - Sepsis, unspecified organism Plan: NORMAL SALINE AT 110 ML/HR, PROCALAMINE AT 40 ML/HR, ALBUMIN 25% IV BID, CIPRO 200MG IV Q12H, MEROPENEM, KLONOPIN 1MG PO HS, NORCO 5/325MG PO Q6H PRN, VISTARIL 25MG PO Q8H, AND TESSALON PERLES 200MG PO TID (2) Abdominal wound dehiscence Status: Acute Qualifiers: Encounter type: initial encounter Qualified Code(s): T81.30XA - Disruption of wound, unspecified, initial encounter (3) Abdominal wall fistula Status: Acute (4) Neutrophilic leukocytosis Status: Acute (5) Bladder cancer Status: Acute Qualifiers: Bladder location: unspecified site Qualified Code(s): C67.9 - Malignant neoplasm of bladder, unspecified (6) Hypochromic microcytic anemia Status: Acute (7) Acute hypokalemia Status: Acute (8) CKD (chronic kidney disease) stage 4, GFR 15-29 ml/min Status: Chronic
[2020-10-21 11:47] LABS: MAGNESIUM 2.2 mg/dL (1.7-2.9)
[2020-10-21] MEDS: TRACE ELEMENTS IV SCH ×3 (12:30)
[2020-10-21] MEDS: MVI IV SCH ×3 (12:30)
[2020-10-21] MEDS: CLINIMIX IV SCH ×3 (12:30)
--- NOTE | 2020-10-21 15:53 | DR.PROGNOT ---
Hospital Progress Notes - Progress Note for Day of: Progress Note Date: 10/21/20 - Chief Complaint Chief Complaint: very weak and obtunded today . poor appetite. urine in the colostomy , ( open wound ). modified cystogram showed bladder leak as expected . d/w family in details ; the metastatic bladder ca . bladder leak, nephrostomy, nutritional status . hospice care was discussed as well . - Past Medical Family Social History Past Med/Fam/Surg Hx: No changes since H&P Allergies: Allergies cephalexin [From Keflex] Allergy (Verified 09/19/18 14:30) Penicillins Allergy (Verified 09/19/18 14:30) - Review Of Systems ROS: No change since H&P - Vital Signs Vital Signs: Temperature 98.5 F Pulse Rate [Apical] 104 Pulse Rate 100 Respiratory Rate 16 Blood Pressure [Right Arm] 98/54 Blood Pressure [Left Arm] 110/58 Blood Pressure 87/50 O2 Sat by Pulse Oximetry 94 - Physical Exam Oriented: Normal Eyes: Normal Ear: Normal Nose: Normal Throat: Normal Respiratory: Generalized, Diminished Cardiovascular: Edema (BLE TRACE EDEMA ) : Other (NEOBLADDER RECONSTRUCTION. LOCKE IN PLACE. NEPHROSTOMY TUBE LEFT KIDNEY ) GI:Auscultation: Normal GI:Palpation: Normal GI: Tenderness: Normal Skin: Wound ( abdominal wound WITH moderate DRAINAGE ) Musculoskeletal: Normal Psychiatric: Normal Mood Description: Calm Affect: Normal Speech Pattern: Appropriate, Unclear, Delayed - Laboratory and Diagnostics Result Diagrams: 10/21/20 05:40 10/21/20 05:40 Labs: 10/15/20 16:50 Blood Blood Culture - Final 10/15/20 16:50 Blood Blood Culture - Final 10/15/20 15:30 Abdomen Wound Gram Stain - Final 10/15/20 15:30 Abdomen Wound Culture - Preliminary Laboratory WBC 21.2 X10^3/uL (3.6-10.0) H 10/21/20 05:40 RBC 3.84 X10^6/uL (3.5-5.4) 10/21/20 05:40 Hgb 10.2 g/dL (12.0-16.0) L 10/21/20 05:40 Hct 31.0 % (36.0-47.0) L 10/21/20 05:40 MCV 80.8 fL (80.0-100.0) 10/21/20 05:40 MCH 26.6 pg (27.0-34.0) L 10/21/20 05:40 MCHC 32.9 g/dL (33.0-35.0) L 10/21/20 05:40 RDW 19.4 % (11.6-16.5) H 10/21/20 05:40 Plt Count 200 X10^3/uL (150.0-450.0) 10/21/20 05:40 Plt Count Comment Adequate (ADEQUATE) 10/21/20 05:40 MPV 7.1 fL (7.4-11.0) L 10/21/20 05:40 Neut % (Auto) 83.1 % (42.0-75.0) H 10/21/20 05:40 Lymph % (Auto) 5.2 % (21.0-51.0) L 10/21/20 05:40 [place] % (Auto) 8.1 % (0.0-13.0) 10/21/20 05:40 Eos % (Auto) 3.4 % (0.9-2.9) H 10/21/20 05:40 Baso % (Auto) 0.2 % (0.2-1.0) 10/21/20 05:40 Neut # (Auto) 17.6 x10^3/uL (2.2-4.8) H 10/21/20 05:40 Lymph # (Auto) 1.1 X10^3/uL (1.3-2.9) L 10/21/20 05:40 [place] # (Auto) 1.7 x10^3/uL (0.3-0.8) H 10/21/20 05:40 Eos # (Auto) 0.7 x10^3/uL (0.0-0.2) H 10/21/20 05:40 Baso # (Auto) 0.0 X10^3/uL (0.0-0.1) 10/21/20 05:40 Absolute Nucleated RBC 0.0 /100WBC 10/21/20 05:40 Total Counted 100 10/21/20 05:40 Neutrophils % (Manual) 84 % (39-76) H 10/21/20 05:40 Band Neutrophils % 5 % (0-10) 10/21/20 05:40 Lymphocytes % (Manual) 4 % (13-43) L 10/21/20 05:40 Monocytes % (Manual) 6 % (4-9) 10/21/20 05:40 Eosinophils % (Manual) 1 % (0-6) 10/21/20 05:40 Plt Morphology Comment Normal (NORMAL) 10/21/20 05:40 RBC Morphology Abnormal (NORMAL) A 10/21/20 05:40 Hypochromasia Slight A 10/21/20 05:40 Anisocytosis Slight A 10/19/20 05:25 Microcytosis Slight A 10/21/20 05:40 Target Cells Slight A 10/19/20 05:25 Sodium 144 mmol/L (136-145) 10/21/20 05:40 Corrected Sodium TNP 10/21/20 05:40 Potassium 4.6 mmol/L (3.5-5.1) 10/21/20 05:40 Chloride 113 mmol/L (98-107) H 10/21/20 05:40 Carbon Dioxide 15.8 mmol/L (21-32) L 10/21/20 05:40 BUN 17 mg/dL (7-18) 10/21/20 05:40 Creatinine 1.37 mg/dL (0.55-1.02) H 10/21/20 05:40 Est GFR (MDRD) Af Amer 48 (>60) L 10/21/20 05:40 Est GFR (MDRD) Non-Af 40 (>60) L 10/21/20 05:40 Glucose 81 mg/dL (65-99) 10/21/20 05:40 Lactic Acid 4.3 mmol/L (0.4-2.0) H 10/20/20 05:30 Calcium 12.4 mg/dL (8.5-10.1) H 10/21/20 05:40 Corrected Calcium 13.2 mg/dL (8.5-10.1) H 10/21/20 05:40 Phosphorus 3.0 mg/dL (2.6-4.7) 10/21/20 05:40 Magnesium 2.2 mg/dL (1.7-2.9) 10/21/20 05:40 Total Bilirubin 1.10 mg/dL (0.2-1.0) H 10/21/20 05:40 AST 24 Units/L (15-37) 10/21/20 05:40 ALT 11 Units/L (12-78) L 10/21/20 05:40 Alkaline Phosphatase 74 Units/L (46-116) 10/21/20 05:40 B-Natriuretic Peptide 650 pg/mL (0-79) H* 10/21/20 05:40 Total Protein 6.2 g/dL (6.4-8.2) L 10/21/20 05:40 Albumin 3.0 g/dL (3.4-5.0) L 10/21/20 05:40 Globulin 3.2 g/dL (2.5-4.5) 10/21/20 05:40 Albumin/Globulin Ratio 0.9 Ratio (1.1-2.1) L 10/21/20 05:40 Triglycerides 66 mg/dL (0-150) 10/21/20 05:40 SARS CoV-2 RNA Rapid ROSE Negative (NEGATIVE) 10/15/20 16:20 Blood Type B POSITIVE 10/19/20 11:20 Antibody Screen Negative 10/19/20 11:20 Crossmatch See Detail 10/19/20 11:20 - Assessment and Plan 1: open abdominal wall wound with bladder leak from the newly constructed bladder . anemia . recent surgery for bladder cancer . 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 hypokalemia and hypo albuminemia . d/w family in details . Hospice care was d/w the family .. they will get back to us .. 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
[2020-10-21] MEDS: MILK OF MAGNESIA PO SCH (21:11)
[2020-10-21] MEDS: LOVENOX INJ 30 MG SYR SC SCH (21:11)
[2020-10-21] MEDS: KLONOPIN TAB 1 MG PO SCH (21:11)
[2020-10-22] MEDS: TRACE ELEMENTS IV SCH ×9 (01:58→15:27)
[2020-10-22] MEDS: CLINIMIX IV SCH ×9 (01:58→15:27)
[2020-10-22] MEDS: MVI IV SCH ×9 (01:58→15:27)
[2020-10-22] MEDS: MORPHINE SULFATE INJ 2 MG INJ IVP PRN ×6 (01:59→22:40)
[2020-10-22] MEDS: NS + KCL 20 MEQ/L 1,000 ML IV SCH ×4 (01:59→21:02)
[2020-10-22] MEDS: SPIKE MINIBAG IV SCH ×3 (05:10→22:13)
[2020-10-22] MEDS: TESSALON PERLES PO SCH ×3 (05:10→22:49)
[2020-10-22] MEDS: MERREM IV SCH ×3 (05:10→22:13)
[2020-10-22] MEDS: NS IV SCH ×3 (05:10→22:13)
[2020-10-22 05:59] LABS: BASOPHILS # (AUTO) 0.1 X10^3/uL (0.0-0.1); BASOPHILS % (AUTO) 0.3 % (0.2-1.0); EOSINOPHILS # (AUTO) 0.7 x10^3/uL (0.0-0.2); EOSINOPHILS % (AUTO) 3.4 % (0.9-2.9); HEMATOCRIT 25.6 % (36.0-47.0); HEMOGLOBIN 8.3 g/dL (12.0-16.0); LYMPHOCYTES # (AUTO) 1.1 X10^3/uL (1.3-2.9); LYMPHOCYTES % (AUTO) 5.4 % (21.0-51.0); MEAN CORPUSCULAR HEMOGLOBIN 26.5 pg (27.0-34.0); MEAN CORPUSCULAR HGB CONC 32.4 g/dL (33.0-35.0); MEAN PLATELET VOLUME 7.2 fL (7.4-11.0); MONOCYTES # (AUTO) 1.5 x10^3/uL (0.3-0.8); MONOCYTES % (AUTO) 7.6 % (0.0-13.0); NEUTROPHILS # (AUTO) 16.6 x10^3/uL (2.2-4.8); NEUTROPHILS % (AUTO) 83.3 % (42.0-75.0); PLATELET COUNT 201 X10^3/uL (150.0-450.0); RED BLOOD COUNT 3.13 X10^6/uL (3.5-5.4); RED CELL DISTRIBUTION WIDTH 19.5 % (11.6-16.5)
[2020-10-22 06:20] LABS: PREALBUMIN 7.1 mg/dL (18-35.7)
[2020-10-22 06:46] LABS: ALANINE AMINOTRANSFERASE 9 Units/L (12-78); ALBUMIN 2.9 g/dL (3.4-5.0); ALKALINE PHOSPHATASE 79 Units/L (46-116); ASPARTATE AMINO TRANSFERASE 21 Units/L (15-37); BLOOD UREA NITROGEN 23 mg/dL (7-18); CARBON DIOXIDE 21.5 mmol/L (21-32); CHLORIDE 113 mmol/L (98-107); COR CA(FOR HYPOALB) 14.2 mg/dL (8.5-10.1); CREATININE 1.16 mg/dL (0.55-1.02); SODIUM 144 mmol/L (136-145); TOTAL PROTEIN 5.7 g/dL (6.4-8.2); eGFR NON BLACK RACES 48 (>60)
[2020-10-22 06:54] LABS: CALCIUM 13.3 mg/dL (8.5-10.1)
[2020-10-22] MEDS: NORCO 5/325 MG TAB PO PRN (07:18)
--- NOTE | 2020-10-22 08:26 | RAD ---
HISTORYSHORTNESS OF BREATHSTUDYCHEST x-ray, 1 VIEWCOMPARISONX-ray 10/21/2020FINDINGSCentral venous catheter terminates in the region of the right atrium of the heart. There is chronic elevation of the right hemidiaphragm. Possible CHF changes. Mild atelectasis is seen in the right lower lung, unchanged. No pneumothorax is seen.IMPRESSIONPossible mild CHF.Electronically signed by: Nick Johnson (Oct 22, 2020 08:25:12)
[2020-10-22] MEDS: ALBUMIN HUMAN 25%- 100 ML 100 ML IV SCH ×2 (09:00→21:01)
[2020-10-22] MEDS: VISTARIL PO PRN ×2 (09:01→10:00)
[2020-10-22] MEDS: CIPRO IV 200 MG PREMIX* 200 MG/100 ML BAG IV SCH ×2 (09:01→20:49)
[2020-10-22] MEDS: BENADRYL INJ 50 MG VIAL IVP PRN ×2 (13:43→19:46)
[2020-10-22] MEDS ORDERED: MORPHINE SULFATE INJ 2 MG INJ IVP PRN (16:12)
[2020-10-22] MEDS: KLONOPIN TAB 1 MG PO SCH (21:03)
[2020-10-22] MEDS: MILK OF MAGNESIA PO SCH (21:04)
[2020-10-22] MEDS: LOVENOX INJ 30 MG SYR SC SCH (21:37)
[2020-10-22] MEDS ORDERED: TYLENOL SUPP 650 MG PR PRN (23:39)
[2020-10-22] MEDS ORDERED: TYLENOL SUPP 650 MG ONE (23:41)
[2020-10-23] MEDS: CLINIMIX IV SCH ×6 (00:42→05:42)
[2020-10-23] MEDS: TRACE ELEMENTS IV SCH ×6 (00:42→05:42)
[2020-10-23] MEDS: MVI IV SCH ×6 (00:42→05:42)
[2020-10-23] MEDS: MORPHINE SULFATE INJ 2 MG INJ IVP PRN ×3 (03:05→08:15)
[2020-10-23] MEDS: NS + KCL 20 MEQ/L 1,000 ML IV SCH (04:52)
[2020-10-23] MEDS: NS IV SCH (05:24)
[2020-10-23] MEDS: MERREM IV SCH (05:24)
[2020-10-23] MEDS: SPIKE MINIBAG IV SCH (05:24)
[2020-10-23 05:32] LABS: BASOPHILS % (AUTO) 0.1 % (0.2-1.0); EOSINOPHILS # (AUTO) 0.6 x10^3/uL (0.0-0.2); EOSINOPHILS % (AUTO) 3.1 % (0.9-2.9); HEMATOCRIT 23.8 % (36.0-47.0); HEMOGLOBIN 7.9 g/dL (12.0-16.0); LYMPHOCYTES # (AUTO) 1.1 X10^3/uL (1.3-2.9); LYMPHOCYTES % (AUTO) 5.6 % (21.0-51.0); MEAN CORPUSCULAR HEMOGLOBIN 26.8 pg (27.0-34.0); MEAN CORPUSCULAR VOLUME 81.1 fL (80.0-100.0); MEAN PLATELET VOLUME 7.1 fL (7.4-11.0); MONOCYTES # (AUTO) 1.4 x10^3/uL (0.3-0.8); MONOCYTES % (AUTO) 7.2 % (0.0-13.0); PLATELET COUNT 199 X10^3/uL (150.0-450.0); RED BLOOD COUNT 2.93 X10^6/uL (3.5-5.4); RED CELL DISTRIBUTION WIDTH 19.7 % (11.6-16.5)
[2020-10-23] MEDS: TESSALON PERLES PO SCH (05:43)
[2020-10-23 05:45] LABS: ALANINE AMINOTRANSFERASE 8 Units/L (12-78); ALBUMIN 2.7 g/dL (3.4-5.0); ALKALINE PHOSPHATASE 53 Units/L (46-116); ASPARTATE AMINO TRANSFERASE 14 Units/L (15-37); BLOOD UREA NITROGEN 29 mg/dL (7-18); CARBON DIOXIDE 20.3 mmol/L (21-32); CHLORIDE 112 mmol/L (98-107); COR CA(FOR HYPOALB) 14.4 mg/dL (8.5-10.1); COR NA(FOR HYPERGLY) 144 mmol/L (136-145); CREATININE 1.13 mg/dL (0.55-1.02); SODIUM 143 mmol/L (136-145); TOTAL PROTEIN 5.4 g/dL (6.4-8.2); eGFR NON BLACK RACES 50 (>60)
[2020-10-23 05:49] LABS: CALCIUM 13.4 mg/dL (8.5-10.1)
--- NOTE | 2020-10-23 07:50 | RAD ---
HISTORYshortness of breathSTUDYCHEST, 1 VIEWCOMPARISONPortable chest October 22, 2020FINDINGSThe trachea is midline. The cardiac silhouette is mildly enlarged. A right-sided central venous catheter is seen entering on the right subclavian with the tip in the right atrium. There is elevation the right hemidiaphragm resulting in right basilar atelectasis unchanged from the film of October 22, 2020. The lungs are otherwise clear. The lungs are clear without focal infiltrate or effusion. The bony thorax is unremarkable.IMPRESSIONCardiomegaly and right basilar atelectasis due to elevation the right hemidiaphragm depth but no findings of CHF at this time.Right subclavian central venous catheter in place.Electronically signed by: GRACIA BARRETT (Oct 23, 2020 07:48:18)
[2020-10-23] MEDS: ALBUMIN HUMAN 25%- 100 ML 100 ML IV SCH (08:18)
[2020-10-23] MEDS ORDERED: MORPHINE SULFATE PCA 30 MG IVP SCH (09:00)
[2020-10-23] MEDS ORDERED: VERSED IV PREMIX 100 MG/100 ML IV.SOLN IV PRN (09:47)
--- NOTE | 2020-10-23 10:06 | PCM.PROG ---
Progress Note - Progress Note for Day of Date of Exam: 10/22/20 - Subjective Subjective: WAS ADMITTED FOR TREATMENT OF SEPSIS, ABDOMINAL WOUND DEHISCENCE, ABDOMINAL WALL FISTULA, LEUKOCYTOSIS, ANEMIA, HYPOKALEMIA, CHRONIC KIDNEY DISEASE. SHE HAS HAD A TOTAL OF 3 UNITS OF PRBC SINCE ADMISSION. SHE HAS A HX BLADDER CANCER AND KIDNEY CANCER. RIGHT KIDNEY HAS BEEN REMOVED. BLADDER HAS ALSO BEEN REMOVED. 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 PERFORMED A CYSTOGRAM AT BEDSIDE AND LEAKAGE OF FLUID INTO ABDOMEN WAS NOTED. TODAY, PATIENT IS LYING IN BED ON MORNING ROUNDS. SHE IS DIFFICULT TO AROUSE THIS MORNING. PATIENT DOES MOAN TO PAINFUL STIMULI. ON EXAMINATION, HEART IS REGULAR IN RATE AND RHYTHM. BILATERAL LUNGS ARE NOTED WITH DIMINISHED LUNG SOUNDS THROUGHOUT. ABDOMEN IS ROUND, SOFT, AND NOTED TO HAVE HYPOACTIVE BOWEL SOUNDS THROUGHOUT. THERE IS AN OSTOMY BAG COVERING WOUND TO THE LEFT SIDE ABDOMEN TO COLLECT DRAINAGE. THERE CONTINUES TO BE A MODERATE AMOUNT OF PURULENT DRAINAGE IN BAG. LOCKE CATHETER NOTED TO BEDSIDE DRAINAGE WITH MINIMAL OUTPUT. BLE 2+ EDEMA NOTED. HER VITALS THIS MORNING ARE: 98.7-108-20-98%-90/44. LABS WERE OBTAINED. ABNORMAL LAB VALUES INCLUDE THE FOLLOWING: WBC 20.0, RBC 3.13, HGB 8.3, HCT 25.6, CHLORIDE 113, BUN 23, CREATININE 1.16, CALCIUM 13.3, ALT 9, BNP 541, TOTAL PROTEIN 5.7, ALBUMIN 2.9, PREALBUMIN 7.1. WOUND AND BLOOD CU LTURES ARE PENDING. 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 A CHEST XRAY WAS OBTAINED THIS MORNING AND REVEALED: Possible mild CHF. SHE IS CURRENTLY RECEIVING: NORMAL SALINE WITH 20MEQ KCL AT 110 ML/HR, PROCALAMINE AT 40 ML/HR, ALBUMIN 25% IV BID, CIPRO 200MG IV Q12H, MEROPENEM, VISTARIL 25MG PO Q8H PRN, TESSALON PERLES 200MG PO TID, LOVENOX 30MG SC HS, KLONOPIN 1MG PO HS, NORCO 5/325MG PO Q6H PRN. WE WILL CONTINUE WITH CURRENT PLAN OF CARE TODAY. WE DISCUSSED FINDINGS AND PATIENTS DECLINING CONDITION WITH FAMILY MEMBERS. THEY ARE DISCUSSING HOSPICE AND OTHER OPTIONS WITH OTHER FAMILY MEMBERS, BUT WISH TO CONTINUE WITH CURRENT PLAN OF CARE TODAY. OTHERWISE, WE PLAN TO FOLLOW UP WITH AM LABS AND CONTINUE TO MONITOR. TIME SPENT ON CLINICAL ASSESSMENT, REVIEWING LABS AND IMAGING, DECISION MAKING, AND DOCUMENTATION GREATER THAN 45 MINUTES. - Past Medical Family Social History Past Med/Fam/Surg Hx: No changes since H&P Allergies: Allergies cephalexin [From Keflex] Allergy (Verified 09/19/18 14:30) Penicillins Allergy (Verified 09/19/18 14:30) - Review of Systems ROS: No change since H&P - Vital Signs and I&O's Vital Signs: Temperature 99.3 F Pulse Rate [Apical] 110 Pulse Rate 99 Respiratory Rate 18 Blood Pressure [Right Arm] 126/64 Blood Pressure [Left Arm] 142/63 Blood Pressure 87/50 O2 Sat by Pulse Oximetry 95 Intake and Output: Intake & Output 10/20/20 10/21/20 10/22/20 10/23/20 11:59 11:59 11:59 11:59 Intake Total 3025 / 3025 3990 / 3990 3341 / 3341 927 / 927 Output Total 2395 / 2395 2845 / 2845 2305 / 2305 2795 / 2795 Balance 630 / 630 1145 / 1145 1036 / 1036 -1868 / -1868 - Physical Exam Oriented: Normal Eyes: Normal Ear: Normal Nose: Normal Throat: Normal Respiratory: Generalized, Diminished Cardiovascular: Edema (BLE TRACE EDEMA ) : Other (NEOBLADDER RECONSTRUCTION. LOCKE IN PLACE. NEPHROSTOMY TUBE LEFT KIDNEY ) Auscultation: Bowel Sounds: Normal Tenderness: Normal Skin: Wound ( abdominal wound WITH moderate DRAINAGE ) Musculoskeletal: Normal Psychiatric: Normal Mood Description: Calm Affect: Normal Speech Pattern: Unclear - Laboratory and Diagnostics Result Diagrams: 10/23/20 04:08 10/23/20 04:08 Labs: 10/15/20 16:50 Blood Blood Culture - Final 10/15/20 16:50 Blood Blood Culture - Final 10/15/20 15:30 Abdomen Wound Gram Stain - Final 10/15/20 15:30 Abdomen Wound Culture - Preliminary Laboratory WBC 19.0 X10^3/uL (3.6-10.0) H 10/23/20 04:08 RBC 2.93 X10^6/uL (3.5-5.4) L 10/23/20 04:08 Hgb 7.9 g/dL (12.0-16.0) L 10/23/20 04:08 Hct 23.8 % (36.0-47.0) L 10/23/20 04:08 MCV 81.1 fL (80.0-100.0) 10/23/20 04:08 MCH 26.8 pg (27.0-34.0) L 10/23/20 04:08 MCHC 33.0 g/dL (33.0-35.0) 10/23/20 04:08 RDW 19.7 % (11.6-16.5) H 10/23/20 04:08 Plt Count 199 X10^3/uL (150.0-450.0) 10/23/20 04:08 Plt Count Comment Adequate (ADEQUATE) 10/21/20 05:40 MPV 7.1 fL (7.4-11.0) L 10/23/20 04:08 Neut % (Auto) 84.0 % (42.0-75.0) H 10/23/20 04:08 Lymph % (Auto) 5.6 % (21.0-51.0) L 10/23/20 04:08 [place] % (Auto) 7.2 % (0.0-13.0) 10/23/20 04:08 Eos % (Auto) 3.1 % (0.9-2.9) H 10/23/20 04:08 Baso % (Auto) 0.1 % (0.2-1.0) L 10/23/20 04:08 Neut # (Auto) 16.0 x10^3/uL (2.2-4.8) H 10/23/20 04:08 Lymph # (Auto) 1.1 X10^3/uL (1.3-2.9) L 10/23/20 04:08 [place] # (Auto) 1.4 x10^3/uL (0.3-0.8) H 10/23/20 04:08 Eos # (Auto) 0.6 x10^3/uL (0.0-0.2) H 10/23/20 04:08 Baso # (Auto) 0.0 X10^3/uL (0.0-0.1) 10/23/20 04:08 Absolute Nucleated RBC 0.0 /100WBC 10/23/20 04:08 Total Counted 100 10/21/20 05:40 Neutrophils % (Manual) 84 % (39-76) H 10/21/20 05:40 Band Neutrophils % 5 % (0-10) 10/21/20 05:40 Lymphocytes % (Manual) 4 % (13-43) L 10/21/20 05:40 Monocytes % (Manual) 6 % (4-9) 10/21/20 05:40 Eosinophils % (Manual) 1 % (0-6) 10/21/20 05:40 Plt Morphology Comment Normal (NORMAL) 10/21/20 05:40 RBC Morphology Abnormal (NORMAL) A 10/21/20 05:40 Hypochromasia Slight A 10/21/20 05:40 Anisocytosis Slight A 10/19/20 05:25 Microcytosis Slight A 10/21/20 05:40 Target Cells Slight A 10/19/20 05:25 Sodium 143 mmol/L (136-145) 10/23/20 04:08 Corrected Sodium 144 mmol/L (136-145) 10/23/20 04:08 Potassium 3.6 mmol/L (3.5-5.1) 10/23/20 04:08 Chloride 112 mmol/L (98-107) H 10/23/20 04:08 Carbon Dioxide 20.3 mmol/L (21-32) L 10/23/20 04:08 BUN 29 mg/dL (7-18) H 10/23/20 04:08 Creatinine 1.13 mg/dL (0.55-1.02) H 10/23/20 04:08 Est GFR (MDRD) Af Amer > 60 (>60) 10/23/20 04:08 Est GFR (MDRD) Non-Af 50 (>60) L 10/23/20 04:08 Glucose 141 mg/dL (65-99) H 10/23/20 04:08 POC Glucose (mg/dL) 148 mg/dL (65-99) H 10/22/20 19:54 Lactic Acid 4.3 mmol/L (0.4-2.0) H 10/20/20 05:30 Calcium 13.4 mg/dL (8.5-10.1) H* 10/23/20 04:08 Corrected Calcium 14.4 mg/dL (8.5-10.1) H 10/23/20 04:08 Phosphorus 3.0 mg/dL (2.6-4.7) 10/21/20 05:40 Magnesium 2.2 mg/dL (1.7-2.9) 10/21/20 05:40 Total Bilirubin 0.50 mg/dL (0.2-1.0) 10/23/20 04:08 AST 14 Units/L (15-37) L 10/23/20 04:08 ALT 8 Units/L (12-78) L 10/23/20 04:08 Alkaline Phosphatase 53 Units/L (46-116) 10/23/20 04:08 B-Natriuretic Peptide 661 pg/mL (0-79) H* 10/23/20 04:08 Total Protein 5.4 g/dL (6.4-8.2) L 10/23/20 04:08 Albumin 2.7 g/dL (3.4-5.0) L 10/23/20 04:08 Globulin 2.7 g/dL (2.5-4.5) 10/23/20 04:08 Albumin/Globulin Ratio 1.0 Ratio (1.1-2.1) L 10/23/20 04:08 Prealbumin 7.1 mg/dL (18-35.7) L 10/22/20 04:15 Triglycerides 66 mg/dL (0-150) 10/21/20 05:40 SARS CoV-2 RNA Rapid ROSE Negative (NEGATIVE) 10/15/20 16:20 Blood Type B POSITIVE 10/19/20 11:20 Antibody Screen Negative 10/19/20 11:20 Crossmatch See Detail 10/19/20 11:20 - Plan (1) Sepsis Status: Acute Qualifiers: Sepsis type: sepsis due to unspecified organism Sepsis acute organ dysfunction status: unspecified Qualified Code(s): A41.9 - Sepsis, unspecified organism Plan: NORMAL SALINE AT 110 ML/HR, PROCALAMINE AT 40 ML/HR, ALBUMIN 25% IV BID, CIPRO 200MG IV Q12H, MEROPENEM, KLONOPIN 1MG PO HS, NORCO 5/325MG PO Q6H PRN, VISTARIL 25MG PO Q8H, AND TESSALON PERLES 200MG PO TID (2) Abdominal wound dehiscence Status: Acute Qualifiers: Encounter type: initial encounter Qualified Code(s): T81.30XA - Disruption of wound, unspecified, initial encounter (3) Abdominal wall fistula Status: Acute (4) Neutrophilic leukocytosis Status: Acute (5) Bladder cancer Status: Acute Qualifiers: Bladder location: unspecified site Qualified Code(s): C67.9 - Malignant neoplasm of bladder, unspecified (6) Hypochromic microcytic anemia Status: Acute (7) Acute hypokalemia Status: Acute (8) CKD (chronic kidney disease) stage 4, GFR 15-29 ml/min Status: Chronic
--- NOTE | 2020-10-23 10:57 | PCM.PROG ---
Progress Note - Progress Note for Day of Date of Exam: 10/23/20 - Subjective Subjective: WAS ADMITTED FOR TREATMENT OF SEPSIS, ABDOMINAL WOUND DEHISCENCE, ABDOMINAL WALL FISTULA, LEUKOCYTOSIS, ANEMIA, HYPOKALEMIA, CHRONIC KIDNEY DISEASE. SHE HAS HAD A TOTAL OF 3 UNITS OF PRBC SINCE ADMISSION. SHE HAS A HX BLADDER CANCER AND KIDNEY CANCER. RIGHT KIDNEY HAS BEEN REMOVED. BLADDER HAS ALSO BEEN REMOVED. 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 PERFORMED A CYSTOGRAM AT BEDSIDE AND LEAKAGE OF FLUID INTO ABDOMEN WAS NOTED. TODAY, PATIENT IS LYING IN BED ON MORNING ROUNDS. SHE IS DIFFICULT TO AROUSE THIS MORNING. PATIENT DOES MOAN TO PAINFUL STIMULI. ON EXAMINATION, HEART IS REGULAR IN RATE AND RHYTHM. BILATERAL LUNGS ARE NOTED WITH DIMINISHED LUNG SOUNDS THROUGHOUT. ABDOMEN IS ROUND, SOFT, AND NOTED TO HAVE HYPOACTIVE BOWEL SOUNDS THROUGHOUT. THERE IS AN OSTOMY BAG COVERING WOUND TO THE LEFT SIDE ABDOMEN TO COLLECT DRAINAGE. THERE CONTINUES TO BE A MODERATE AMOUNT OF PURULENT DRAINAGE IN BAG. LOCKE CATHETER NOTED TO BEDSIDE DRAINAGE WITH MINIMAL OUTPUT. BLE 2+ EDEMA NOTED. HER VITALS THIS MORNING ARE: 99.3-100-20-95%-142/63. LABS WERE OBTAINED. ABNORMAL LAB VALUES INCLUDE THE FOLLOWING: WBC 19.0, RBC 2.93, HGB 7.9, HCT 23.8, CHLORIDE 112, CARBON DIOXIDE 20.3, BUN 29, CREATININE 1.13, GLUCOSE 141, CALCIUM 13.4, AST 14, ALT 8, BNP 661, TOTAL PROTEIN 5.4, ALBUMIN 2.7. WOUND AND BLOOD CULTURES ARE PENDING. SHE IS CURRENTLY RECEIVING: NORMAL SALINE WITH 20MEQ KCL AT 110 ML/HR, PROCALAMINE AT 40 ML/HR, ALBUMIN 25% IV BID, CIPRO 200MG IV Q12H, MEROPENEM, VISTARIL 25MG PO Q8H PRN, TESSALON PERLES 200MG PO TID, LOVENOX 30MG SC HS, KLONOPIN 1MG PO HS, NORCO 5/325MG PO Q6H PRN. FAMILY HAS SIGNED A DNR AND WISHES FOR PATIENT TO BE ON COMFORT MEASURES ONLY. TODAY, WE WILL DISCONTINUE ALL TREATMENTS AND START A MORPHINE DRIP AND A VERSED DRIP FOR COMFORT, SEDATION, AND SEIZURE PRECAUTIONS. OTHERWISE, WE PLAN TO CONTINUE TO MONITOR AND MAKE CHANGES APPROPRIATE. TIME SPENT ON CLINICAL ASSESSMENT, REVIEWING LABS AND IMAGING, DECISION MAKING, AND DOCUMENTATION GREATER THAN 45 MINUTES. - Past Medical Family Social History Past Med/Fam/Surg Hx: No changes since H&P Allergies: Allergies cephalexin [From Keflex] Allergy (Verified 09/19/18 14:30) Penicillins Allergy (Verified 09/19/18 14:30) - Review of Systems ROS: No change since H&P - Vital Signs and I&O's Vital Signs: Temperature 99.3 F Pulse Rate [Apical] 110 Pulse Rate 99 Respiratory Rate 18 Blood Pressure [Right Arm] 126/64 Blood Pressure [Left Arm] 142/63 Blood Pressure 87/50 O2 Sat by Pulse Oximetry 95 Intake and Output: Intake & Output 10/20/20 10/21/20 10/22/20 10/23/20 11:59 11:59 11:59 11:59 Intake Total 3025 / 3025 3990 / 3990 3341 / 3341 927 / 927 Output Total 2395 / 2395 2845 / 2845 2305 / 2305 2795 / 2795 Balance 630 / 630 1145 / 1145 1036 / 1036 -1868 / -1868 - Physical Exam Oriented: Unable to test Eyes: Normal Ear: Normal Nose: Normal Throat: Normal Respiratory: Generalized, Diminished Cardiovascular: Edema (BLE TRACE EDEMA ) : Other (NEOBLADDER RECONSTRUCTION. LOCKE IN PLACE. NEPHROSTOMY TUBE LEFT KIDNEY ) Auscultation: Bowel Sounds: Normal Palpation: Normal Tenderness: Normal Skin: Wound ( abdominal wound WITH moderate DRAINAGE ) Musculoskeletal: Normal Psychiatric: Normal Mood Description: Calm Affect: Normal Speech Pattern: Unclear - Laboratory and Diagnostics Result Diagrams: 10/23/20 04:08 10/23/20 04:08 Labs: 10/15/20 16:50 Blood Blood Culture - Final 10/15/20 16:50 Blood Blood Culture - Final 10/15/20 15:30 Abdomen Wound Gram Stain - Final 10/15/20 15:30 Abdomen Wound Culture - Preliminary Laboratory WBC 19.0 X10^3/uL (3.6-10.0) H 10/23/20 04:08 RBC 2.93 X10^6/uL (3.5-5.4) L 10/23/20 04:08 Hgb 7.9 g/dL (12.0-16.0) L 10/23/20 04:08 Hct 23.8 % (36.0-47.0) L 10/23/20 04:08 MCV 81.1 fL (80.0-100.0) 10/23/20 04:08 MCH 26.8 pg (27.0-34.0) L 10/23/20 04:08 MCHC 33.0 g/dL (33.0-35.0) 10/23/20 04:08 RDW 19.7 % (11.6-16.5) H 10/23/20 04:08 Plt Count 199 X10^3/uL (150.0-450.0) 10/23/20 04:08 Plt Count Comment Adequate (ADEQUATE) 10/21/20 05:40 MPV 7.1 fL (7.4-11.0) L 10/23/20 04:08 Neut % (Auto) 84.0 % (42.0-75.0) H 10/23/20 04:08 Lymph % (Auto) 5.6 % (21.0-51.0) L 10/23/20 04:08 [place] % (Auto) 7.2 % (0.0-13.0) 10/23/20 04:08 Eos % (Auto) 3.1 % (0.9-2.9) H 10/23/20 04:08 Baso % (Auto) 0.1 % (0.2-1.0) L 10/23/20 04:08 Neut # (Auto) 16.0 x10^3/uL (2.2-4.8) H 10/23/20 04:08 Lymph # (Auto) 1.1 X10^3/uL (1.3-2.9) L 10/23/20 04:08 [place] # (Auto) 1.4 x10^3/uL (0.3-0.8) H 10/23/20 04:08 Eos # (Auto) 0.6 x10^3/uL (0.0-0.2) H 10/23/20 04:08 Baso # (Auto) 0.0 X10^3/uL (0.0-0.1) 10/23/20 04:08 Absolute Nucleated RBC 0.0 /100WBC 10/23/20 04:08 Total Counted 100 10/21/20 05:40 Neutrophils % (Manual) 84 % (39-76) H 10/21/20 05:40 Band Neutrophils % 5 % (0-10) 10/21/20 05:40 Lymphocytes % (Manual) 4 % (13-43) L 10/21/20 05:40 Monocytes % (Manual) 6 % (4-9) 10/21/20 05:40 Eosinophils % (Manual) 1 % (0-6) 10/21/20 05:40 Plt Morphology Comment Normal (NORMAL) 10/21/20 05:40 RBC Morphology Abnormal (NORMAL) A 10/21/20 05:40 Hypochromasia Slight A 10/21/20 05:40 Anisocytosis Slight A 10/19/20 05:25 Microcytosis Slight A 10/21/20 05:40 Target Cells Slight A 10/19/20 05:25 Sodium 143 mmol/L (136-145) 10/23/20 04:08 Corrected Sodium 144 mmol/L (136-145) 10/23/20 04:08 Potassium 3.6 mmol/L (3.5-5.1) 10/23/20 04:08 Chloride 112 mmol/L (98-107) H 10/23/20 04:08 Carbon Dioxide 20.3 mmol/L (21-32) L 10/23/20 04:08 BUN 29 mg/dL (7-18) H 10/23/20 04:08 Creatinine 1.13 mg/dL (0.55-1.02) H 10/23/20 04:08 Est GFR (MDRD) Af Amer > 60 (>60) 10/23/20 04:08 Est GFR (MDRD) Non-Af 50 (>60) L 10/23/20 04:08 Glucose 141 mg/dL (65-99) H 10/23/20 04:08 POC Glucose (mg/dL) 148 mg/dL (65-99) H 10/22/20 19:54 Lactic Acid 4.3 mmol/L (0.4-2.0) H 10/20/20 05:30 Calcium 13.4 mg/dL (8.5-10.1) H* 10/23/20 04:08 Corrected Calcium 14.4 mg/dL (8.5-10.1) H 10/23/20 04:08 Phosphorus 3.0 mg/dL (2.6-4.7) 10/21/20 05:40 Magnesium 2.2 mg/dL (1.7-2.9) 10/21/20 05:40 Total Bilirubin 0.50 mg/dL (0.2-1.0) 10/23/20 04:08 AST 14 Units/L (15-37) L 10/23/20 04:08 ALT 8 Units/L (12-78) L 10/23/20 04:08 Alkaline Phosphatase 53 Units/L (46-116) 10/23/20 04:08 B-Natriuretic Peptide 661 pg/mL (0-79) H* 10/23/20 04:08 Total Protein 5.4 g/dL (6.4-8.2) L 10/23/20 04:08 Albumin 2.7 g/dL (3.4-5.0) L 10/23/20 04:08 Globulin 2.7 g/dL (2.5-4.5) 10/23/20 04:08 Albumin/Globulin Ratio 1.0 Ratio (1.1-2.1) L 10/23/20 04:08 Prealbumin 7.1 mg/dL (18-35.7) L 10/22/20 04:15 Triglycerides 66 mg/dL (0-150) 10/21/20 05:40 SARS CoV-2 RNA Rapid ROSE Negative (NEGATIVE) 10/15/20 16:20 Blood Type B POSITIVE 10/19/20 11:20 Antibody Screen Negative 10/19/20 11:20 Crossmatch See Detail 10/19/20 11:20 - Plan (1) Comfort measures only status Status: Acute (2) Sepsis Status: Acute Qualifiers: Sepsis type: sepsis due to unspecified organism Sepsis acute organ dysfunction status: unspecified Qualified Code(s): A41.9 - Sepsis, unspecified organism (3) Abdominal wound dehiscence Status: Acute Qualifiers: Encounter type: initial encounter Qualified Code(s): T81.30XA - Disruption of wound, unspecified, initial encounter (4) Abdominal wall fistula Status: Acute (5) Neutrophilic leukocytosis Status: Acute (6) Bladder cancer Status: Acute Qualifiers: Bladder location: unspecified site Qualified Code(s): C67.9 - Malignant neoplasm of bladder, unspecified (7) Hypochromic microcytic anemia Status: Acute (8) Acute hypokalemia Status: Acute (9) CKD (chronic kidney disease) stage 4, GFR 15-29 ml/min Status: Chronic
[2020-10-23] MEDS: NS 1000 ML 1,000 ML IV SCH (11:00)
[2020-10-24] MEDS: NS 1000 ML 1,000 ML IV SCH (11:34)
[2020-10-24] MEDS: MORPHINE SULFATE PCA 30 MG IVP PRN (11:52)
[2020-10-25] MEDS: MORPHINE SULFATE PCA 30 MG IVP PRN (03:44)
[2020-10-25] MEDS: NS 1000 ML 1,000 ML IV SCH ×2 (08:49→10:46)
[2020-10-25 12:24] VITALS: BP 69/33
--- NOTE | 2020-10-25 13:22 | PCM.PROG ---
Progress Note Progress Note for Day of Date of Exam: 10/25/20 Subjective Subjective: WAS ADMITTED FOR TREATMENT OF SEPSIS, ABDOMINAL WOUND DEHISCENCE, ABDOMINAL WALL FISTULA, LEUKOCYTOSIS, ANEMIA, HYPOKALEMIA, CHRONIC KIDNEY DISEASE. SHE WAS BEING TREATED FOR THE ABOVE CONDITIONS WITH CONTINUED CLINICAL DECLINE AND MULTIORGAN FAILURE. THIS MORNING PATIENT IS LYING IN BED, DIFFICULT TO AROUSE. FAMILY HAS SIGNED A DNR AND PATIENT CURRENTLY ON COMFORT MEASURES ONLY, INCLUDING A MORPHINE DRIP AND A VERSED DRIP FOR COMFORT, SEDATION, AND SEIZURE PRECAUTIONS. PLAN TO CONTINUE TO MONITOR AND MAKE CHANGES APPROPRIATE. Past Medical Family Social History Past Med/Fam/Surg Hx: No changes since H&P Allergies: Allergies cephalexin [From Keflex] Allergy (Verified 09/19/18 14:30) Penicillins Allergy (Verified 09/19/18 14:30) Review of Systems ROS: No change since H&P Vital Signs and I&O's Vital Signs: Temperature 100.3 F Pulse Rate [Apical] 124 Pulse Rate 99 Respiratory Rate 12 Blood Pressure [Right Arm] 69/33 Blood Pressure [Left Arm] 120/49 Blood Pressure 87/50 O2 Sat by Pulse Oximetry 64 Intake and Output: Intake & Output 10/22/20 10/23/20 10/24/20 10/25/20 23:59 23:59 23:59 23:59 Intake Total 1912 / 1912 3382 / 3382 582 / 582 120 / 120 Output Total 2820 / 2820 1740 / 1740 600 / 600 150 / 150 Balance -908 / -908 1642 / 1642 -18 / -18 -30 / -30 Physical Exam Oriented: Unable to test Eyes: Normal Ear: Normal Nose: Normal Throat: Normal Respiratory: Generalized and Diminished Cardiovascular: Edema (BLE TRACE EDEMA ) : Other (NEOBLADDER RECONSTRUCTION. LOCKE IN PLACE. NEPHROSTOMY TUBE LEFT KIDNEY ) Auscultation: Bowel Sounds: Decreased Tenderness: Other Skin: Wound ( abdominal wound WITH moderate DRAINAGE ) Musculoskeletal: Normal Psychiatric: Other Speech Pattern: Unclear Laboratory and Diagnostics Result Diagrams: 10/23/20 04:08 10/23/20 04:08 Labs: 10/15/20 15:30 Abdomen Wound Gram Stain - Final 10/15/20 15:30 Abdomen Wound Culture - Preliminary 10/15/20 16:50 Blood Blood Culture - Final 10/15/20 16:50 Blood Blood Culture - Final Laboratory WBC 19.0 X10^3/uL (3.6-10.0) H 10/23/20 04:08 RBC 2.93 X10^6/uL (3.5-5.4) L 10/23/20 04:08 Hgb 7.9 g/dL (12.0-16.0) L 10/23/20 04:08 Hct 23.8 % (36.0-47.0) L 10/23/20 04:08 MCV 81.1 fL (80.0-100.0) 10/23/20 04:08 MCH 26.8 pg (27.0-34.0) L 10/23/20 04:08 MCHC 33.0 g/dL (33.0-35.0) 10/23/20 04:08 RDW 19.7 % (11.6-16.5) H 10/23/20 04:08 Plt Count 199 X10^3/uL (150.0-450.0) 10/23/20 04:08 Plt Count Comment Adequate (ADEQUATE) 10/21/20 05:40 MPV 7.1 fL (7.4-11.0) L 10/23/20 04:08 Neut % (Auto) 84.0 % (42.0-75.0) H 10/23/20 04:08 Lymph % (Auto) 5.6 % (21.0-51.0) L 10/23/20 04:08 [place] % (Auto) 7.2 % (0.0-13.0) 10/23/20 04:08 Eos % (Auto) 3.1 % (0.9-2.9) H 10/23/20 04:08 Baso % (Auto) 0.1 % (0.2-1.0) L 10/23/20 04:08 Neut # (Auto) 16.0 x10^3/uL (2.2-4.8) H 10/23/20 04:08 Lymph # (Auto) 1.1 X10^3/uL (1.3-2.9) L 10/23/20 04:08 [place] # (Auto) 1.4 x10^3/uL (0.3-0.8) H 10/23/20 04:08 Eos # (Auto) 0.6 x10^3/uL (0.0-0.2) H 10/23/20 04:08 Baso # (Auto) 0.0 X10^3/uL (0.0-0.1) 10/23/20 04:08 Absolute Nucleated RBC 0.0 /100WBC 10/23/20 04:08 Total Counted 100 10/21/20 05:40 Neutrophils % (Manual) 84 % (39-76) H 10/21/20 05:40 Band Neutrophils % 5 % (0-10) 10/21/20 05:40 Lymphocytes % (Manual) 4 % (13-43) L 10/21/20 05:40 Monocytes % (Manual) 6 % (4-9) 10/21/20 05:40 Eosinophils % (Manual) 1 % (0-6) 10/21/20 05:40 Plt Morphology Comment Normal (NORMAL) 10/21/20 05:40 RBC Morphology Abnormal (NORMAL) A 10/21/20 05:40 Hypochromasia Slight A 10/21/20 05:40 Anisocytosis Slight A 10/19/20 05:25 Microcytosis Slight A 10/21/20 05:40 Target Cells Slight A 10/19/20 05:25 Sodium 143 mmol/L (136-145) 10/23/20 04:08 Corrected Sodium 144 mmol/L (136-145) 10/23/20 04:08 Potassium 3.6 mmol/L (3.5-5.1) 10/23/20 04:08 Chloride 112 mmol/L (98-107) H 10/23/20 04:08 Carbon Dioxide 20.3 mmol/L (21-32) L 10/23/20 04:08 BUN 29 mg/dL (7-18) H 10/23/20 04:08 Creatinine 1.13 mg/dL (0.55-1.02) H 10/23/20 04:08 Est GFR (MDRD) Af Amer > 60 (>60) 10/23/20 04:08 Est GFR (MDRD) Non-Af 50 (>60) L 10/23/20 04:08 Glucose 141 mg/dL (65-99) H 10/23/20 04:08 POC Glucose (mg/dL) 148 mg/dL (65-99) H 10/22/20 19:54 Lactic Acid 4.3 mmol/L (0.4-2.0) H 10/20/20 05:30 Calcium 13.4 mg/dL (8.5-10.1) H* 10/23/20 04:08 Corrected Calcium 14.4 mg/dL (8.5-10.1) H 10/23/20 04:08 Phosphorus 3.0 mg/dL (2.6-4.7) 10/21/20 05:40 Magnesium 2.2 mg/dL (1.7-2.9) 10/21/20 05:40 Total Bilirubin 0.50 mg/dL (0.2-1.0) 10/23/20 04:08 AST 14 Units/L (15-37) L 10/23/20 04:08 ALT 8 Units/L (12-78) L 10/23/20 04:08 Alkaline Phosphatase 53 Units/L (46-116) 10/23/20 04:08 B-Natriuretic Peptide 661 pg/mL (0-79) H* 10/23/20 04:08 Total Protein 5.4 g/dL (6.4-8.2) L 10/23/20 04:08 Albumin 2.7 g/dL (3.4-5.0) L 10/23/20 04:08 Globulin 2.7 g/dL (2.5-4.5) 10/23/20 04:08 Albumin/Globulin Ratio 1.0 Ratio (1.1-2.1) L 10/23/20 04:08 Prealbumin 7.1 mg/dL (18-35.7) L 10/22/20 04:15 Triglycerides 66 mg/dL (0-150) 10/21/20 05:40 SARS CoV-2 RNA Rapid ROSE Negative (NEGATIVE) 10/15/20 16:20 Blood Type B POSITIVE 10/19/20 11:20 Antibody Screen Negative 10/19/20 11:20 Crossmatch See Detail 10/19/20 11:20 Plan (1) Comfort measures only status: Status: Acute (2) Sepsis: Status: Acute Qualifiers: Sepsis acute organ dysfunction status: unspecified Sepsis type: sepsis due to unspecified organism Qualified Code(s): A41.9 - Sepsis, unspecified organism Plan: NORMAL SALINE AT 110 ML/HR, PROCALAMINE AT 40 ML/HR, ALBUMIN 25% IV BID, CIPRO 200MG IV Q12H, MEROPENEM, KLONOPIN 1MG PO HS, NORCO 5/325MG PO Q6H PRN, VISTARIL 25MG PO Q8H, AND TESSALON PERLES 200MG PO TID (3) Abdominal wound dehiscence: Status: Acute Qualifiers: Encounter type: initial encounter Qualified Code(s): T81.30XA - Di sruption of wound, unspecified, initial encounter (4) Abdominal wall fistula: Status: Acute (5) Neutrophilic leukocytosis: Status: Acute (6) Bladder cancer: Status: Acute Qualifiers: Bladder location: unspecified site Qualified Code(s): C67.9 - Malignant neoplasm of bladder, unspecified (7) Hypochromic microcytic anemia: Status: Acute (8) Acute hypokalemia: Status: Acute (9) CKD (chronic kidney disease) stage 4, GFR 15-29 ml/min: Status: Chronic
--- NOTE | 2020-10-26 21:03 | PCM.PROG ---
Progress Note - Progress Note for Day of Date of Exam: 10/24/20 - Subjective Subjective: WAS INITIALLY ADMITTED FOR TREATMENT OF SEPSIS, ABDOMINAL WOUND DEHISCENCE, ABDOMINAL WALL FISTULA, LEUKOCYTOSIS, ANEMIA, HYPOKALEMIA, CHRONIC KIDNEY DISEASE. SHE HAS A HX BLADDER CANCER AND KIDNEY CANCER. RIGHT KIDNEY HAS BEEN REMOVED. BLADDER HAS ALSO BEEN REMOVED. 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 PERFORMED A CYSTOGRAM AT BEDSIDE AND LEAKAGE OF FLUID INTO ABDOMEN WAS NOTED. SHE IS NOW ON COMFORT MEASURES ONLY. TODAY, PATIENT IS LYING IN BED ON MORNING ROUNDS. SHE IS DIFFICULT TO AROUSE THIS MORNING. PATIENT DOES NOT RESPOND TO PAINFUL STIMULI. ON EXAMINATION, HEART IS REGULAR IN RATE AND RHYTHM. BILATERAL LUNGS ARE NOTED WITH DIMINISHED LUNG SOUNDS THROUGHOUT. ABDOMEN IS ROUND, SOFT, AND NOTED TO HAVE HYPOACTIVE BOWEL SOUNDS THROUGHOUT. THERE IS AN OSTOMY BAG COVERING WOUND TO THE LEFT SIDE ABDOMEN TO COLLECT DRAINAGE. THERE CONTINUES TO BE A MODERATE AMOUNT OF PURULENT DRAINAGE IN BAG. LOCKE CATHETER NOTED TO BEDSIDE DRAINAGE WITH MINIMAL OUTPUT. BLE 2+ EDEMA NOTED. HER VITALS THIS MORNING ARE: 99.3-93-20-98%-97/46. SHE IS CURRENTLY RECEIVING A MORPHINE DRIP. TODAY, WE WILL START A VERSED DRIP FOR COMFORT, SEDATION, AND SEIZURE PRECAUTIONS. WE WILL CONTINUE WITH CURRENT PLAN OF CARE TODAY. OTHERWISE, WE PLAN TO CONTINUE TO MONITOR AND MAKE CHANGES A PPROPRIATE. TIME SPENT ON CLINICAL ASSESSMENT, REVIEWING LABS AND IMAGING, DECISION MAKING, AND DOCUMENTATION GREATER THAN 45 MINUTES. - Past Medical Family Social History Past Med/Fam/Surg Hx: No changes since H&P Allergies: Allergies cephalexin [From Keflex] Allergy (Verified 09/19/18 14:30) Penicillins Allergy (Verified 09/19/18 14:30) - Review of Systems ROS: No change since H&P - Vital Signs and I&O's Vital Signs: Temperature 100.3 F Pulse Rate [Apical] 124 Pulse Rate 99 Respiratory Rate 12 Blood Pressure [Right Arm] 69/33 Blood Pressure [Left Arm] 120/49 Blood Pressure 87/50 O2 Sat by Pulse Oximetry 64 Intake and Output: Intake & Output 10/24/20 10/25/20 10/26/20 10/27/20 11:59 11:59 11:59 11:59 Intake Total 3542 / 3542 542 / 542 Output Total 825 / 825 450 / 450 Balance 2717 / 2717 92 / 92 - Physical Exam Oriented: Unable to test Eyes: Normal Ear: Normal Nose: Normal Throat: Normal Respiratory: Generalized, Diminished Cardiovascular: Edema (BLE TRACE EDEMA) : Other (NEOBLADDER RECONSTRUCTION. LOCKE IN PLACE. NEPHROSTOMY TUBE LEFT KIDNEY) Auscultation: Bowel Sounds: Decreased Tenderness: Other Skin: Wound (abdominal wound WITH moderate DRAINAGE) Musculoskeletal: Normal Psychiatric: Other Mood Description: Calm Affect: Normal Speech Pattern: Unclear - Laboratory and Diagnostics Result Diagrams: 10/23/20 04:08 10/23/20 04:08 Labs: 10/15/20 15:30 Abdomen Wound Gram Stain - Final 10/15/20 15:30 Abdomen Wound Culture - Preliminary 10/15/20 16:50 Blood Blood Culture - Final 10/15/20 16:50 Blood Blood Culture - Final Laboratory WBC 19.0 X10^3/uL (3.6-10.0) H 10/23/20 04:08 RBC 2.93 X10^6/uL (3.5-5.4) L 10/23/20 04:08 Hgb 7.9 g/dL (12.0-16.0) L 10/23/20 04:08 Hct 23.8 % (36.0-47.0) L 10/23/20 04:08 MCV 81.1 fL (80.0-100.0) 10/23/20 04:08 MCH 26.8 pg (27.0-34.0) L 10/23/20 04:08 MCHC 33.0 g/dL (33.0-35.0) 10/23/20 04:08 RDW 19.7 % (11.6-16.5) H 10/23/20 04:08 Plt Count 199 X10^3/uL (150.0-450.0) 10/23/20 04:08 Plt Count Comment Adequate (ADEQUATE) 10/21/20 05:40 MPV 7.1 fL (7.4-11.0) L 10/23/20 04:08 Neut % (Auto) 84.0 % (42.0-75.0) H 10/23/20 04:08 Lymph % (Auto) 5.6 % (21.0-51.0) L 10/23/20 04:08 [place] % (Auto) 7.2 % (0.0-13.0) 10/23/20 04:08 Eos % (Auto) 3.1 % (0.9-2.9) H 10/23/20 04:08 Baso % (Auto) 0.1 % (0.2-1.0) L 10/23/20 04:08 Neut # (Auto) 16.0 x10^3/uL (2.2-4.8) H 10/23/20 04:08 Lymph # (Auto) 1.1 X10^3/uL (1.3-2.9) L 10/23/20 04:08 [place] # (Auto) 1.4 x10^3/uL (0.3-0.8) H 10/23/20 04:08 Eos # (Auto) 0.6 x10^3/uL (0.0-0.2) H 10/23/20 04:08 Baso # (Auto) 0.0 X10^3/uL (0.0-0.1) 10/23/20 04:08 Absolute Nucleated RBC 0.0 /100WBC 10/23/20 04:08 Total Counted 100 10/21/20 05:40 Neutrophils % (Manual) 84 % (39-76) H 10/21/20 05:40 Band Neutrophils % 5 % (0-10) 10/21/20 05:40 Lymphocytes % (Manual) 4 % (13-43) L 10/21/20 05:40 Monocytes % (Manual) 6 % (4-9) 10/21/20 05:40 Eosinophils % (Manual) 1 % (0-6) 10/21/20 05:40 Plt Morphology Comment Normal (NORMAL) 10/21/20 05:40 RBC Morphology Abnormal (NORMAL) A 10/21/20 05:40 Hypochromasia Slight A 10/21/20 05:40 Anisocytosis Slight A 10/19/20 05:25 Microcytosis Slight A 10/21/20 05:40 Target Cells Slight A 10/19/20 05:25 Sodium 143 mmol/L (136-145) 10/23/20 04:08 Corrected Sodium 144 mmol/L (136-145) 10/23/20 04:08 Potassium 3.6 mmol/L (3.5-5.1) 10/23/20 04:08 Chloride 112 mmol/L (98-107) H 10/23/20 04:08 Carbon Dioxide 20.3 mmol/L (21-32) L 10/23/20 04:08 BUN 29 mg/dL (7-18) H 10/23/20 04:08 Creatinine 1.13 mg/dL (0.55-1.02) H 10/23/20 04:08 Est GFR (MDRD) Af Amer > 60 (>60) 10/23/20 04:08 Est GFR (MDRD) Non-Af 50 (>60) L 10/23/20 04:08 Glucose 141 mg/dL (65-99) H 10/23/20 04:08 POC Glucose (mg/dL) 148 mg/dL (65-99) H 10/22/20 19:54 Lactic Acid 4.3 mmol/L (0.4-2.0) H 10/20/20 05:30 Calcium 13.4 mg/dL (8.5-10.1) H* 10/23/20 04:08 Corrected Calcium 14.4 mg/dL (8.5-10.1) H 10/23/20 04:08 Phosphorus 3.0 mg/dL (2.6-4.7) 10/21/20 05:40 Magnesium 2.2 mg/dL (1.7-2.9) 10/21/20 05:40 Total Bilirubin 0.50 mg/dL (0.2-1.0) 10/23/20 04:08 AST 14 Units/L (15-37) L 10/23/20 04:08 ALT 8 Units/L (12-78) L 10/23/20 04:08 Alkaline Phosphatase 53 Units/L (46-116) 10/23/20 04:08 B-Natriuretic Peptide 661 pg/mL (0-79) H* 10/23/20 04:08 Total Protein 5.4 g/dL (6.4-8.2) L 10/23/20 04:08 Albumin 2.7 g/dL (3.4-5.0) L 10/23/20 04:08 Globulin 2.7 g/dL (2.5-4.5) 10/23/20 04:08 Albumin/Globulin Ratio 1.0 Ratio (1.1-2.1) L 10/23/20 04:08 Prealbumin 7.1 mg/dL (18-35.7) L 10/22/20 04:15 Triglycerides 66 mg/dL (0-150) 10/21/20 05:40 SARS CoV-2 RNA Rapid ROSE Negative (NEGATIVE) 10/15/20 16:20 Blood Type B POSITIVE 10/19/20 11:20 Antibody Screen Negative 10/19/20 11:20 Crossmatch See Detail 10/19/20 11:20 - Plan (1) Comfort measures only status Status: Acute (2) Sepsis Status: Acute Qualifiers: Sepsis type: sepsis due to unspecified organism Sepsis acute organ dysfunction status: unspecified Qualified Code(s): A41.9 - Sepsis, unspecified organism (3) Abdominal wound dehiscence Status: Acute Qualifiers: Encounter type: initial encounter Qualified Code(s): T81.30XA - Disruption of wound, unspecified, initial encounter (4) Abdominal wall fistula Status: Acute (5) Neutrophilic leukocytosis Status: Acute (6) Bladder cancer Status: Acute Qualifiers: Bladder location: unspecified site Qualified Code(s): C67.9 - Malignant neoplasm of bladder, unspecified (7) Hypochromic microcytic anemia Status: Acute (8) Acute hypokalemia Status: Acute (9) CKD (chronic kidney disease) stage 4, GFR 15-29 ml/min Status: Chronic
== END 2020-10-25 18:00 | disposition home or self-care (01) | DRG 872 ==
LOC: ER 14:47 → MED/SURG 17:49
PROVIDERS: ADMIT Family Medicine; ATTEND Internal Medicine
DX: C67.9 Malignant neoplasm of bladder, unspecified; R26.89 Other abnormalities of gait and mobility; R53.1 Weakness; Z20.822 Contact with and (suspected) exposure to COVID-19; K63.2 Fistula of intestine; E87.6 Hypokalemia; I87.2 Venous insufficiency (chronic) (peripheral); B96.89 Other specified bacterial agents as the cause of diseases classified elsewhere; R60.0 Localized edema; Z66 Do not resuscitate; T81.30XA Disruption of wound, unspecified, initial encounter; N18.4 Chronic kidney disease, stage 4 (severe); Z51.5 Encounter for palliative care; D50.8 Other iron deficiency anemias; A41.89 Other specified sepsis; N32.2 Vesical fistula, not elsewhere classified